=== PATIENT | male | born 1965 | race Caucasian/White ===

== ENCOUNTER 2019-12-16 08:10 | Outpatient (REF) | payer OTHER, SELFPAY | END 2019-12-16 08:11 | disposition home or self-care (01) | LOC: HO.BBR 08:10 | PROVIDERS: Visit Provider Internal Medicine Gastroenterology | DX: E83.110 Hereditary hemochromatosis (principal) | CPT/HCPCS: 99195 ==

== ENCOUNTER 2020-01-20 09:30 | Outpatient (REF) | payer OTHER, SELFPAY | END 2020-01-20 09:31 | disposition home or self-care (01) | LOC: HO.BBR 09:30 | PROVIDERS: Visit Provider Internal Medicine Gastroenterology | DX: Z13.89 Encounter for screening for other disorder (principal) ==

== ENCOUNTER 2020-01-20 09:58 | Outpatient (REF) | payer SELFPAY ==
[2020-01-20 10:46] LABS: Cholesterol 171 mg/dL
[2020-01-20 13:05] LABS: SARS COV2 IgG Negative (Negative)
== END 2020-01-20 09:59 | disposition home or self-care (01) ==
LOC: HO.LNC 09:58
PROVIDERS: Visit Provider Pathology Anatomic Pathology & Clinical Pathology
DX: Z20.828 Contact with and (suspected) exposure to other viral communicable diseases (principal)
CPT/HCPCS: 82465; 86769

== ENCOUNTER 2020-02-25 08:23 | Outpatient (REF) | payer OTHER, SELFPAY | END 2020-02-25 08:24 | disposition home or self-care (01) | LOC: HO.BBR 08:23 | PROVIDERS: Visit Provider Internal Medicine Gastroenterology | DX: Z13.89 Encounter for screening for other disorder (principal) ==

== ENCOUNTER 2020-03-30 07:59 | Outpatient (REF) | payer OTHER, SELFPAY ==
[2020-03-30 11:00] LABS: Ferritin 17 ng/mL (20-250)
== END 2020-03-30 08:00 | disposition home or self-care (01) ==
LOC: HO.BBR 07:59
PROVIDERS: Visit Provider Internal Medicine Gastroenterology
DX: E83.110 Hereditary hemochromatosis (principal)
CPT/HCPCS: 36415; 82728

== ENCOUNTER 2020-06-01 10:04 | Outpatient (REF) | payer OTHER, SELFPAY | END 2020-06-01 10:05 | disposition home or self-care (01) | LOC: HO.BBR 10:04 | PROVIDERS: PCP Hospitalist; Visit Provider Internal Medicine Gastroenterology | DX: Z13.89 Encounter for screening for other disorder (principal) ==

== ENCOUNTER 2020-08-03 15:20 | Outpatient (REF) | payer OTHER, SELFPAY ==
[2020-08-03 16:43] LABS: Ferritin 44 ng/mL (20-250)
== END 2020-08-03 15:21 | disposition home or self-care (01) ==
LOC: HO.BBR 15:20
PROVIDERS: Visit Provider Internal Medicine Gastroenterology
DX: E83.110 Hereditary hemochromatosis (principal)
CPT/HCPCS: 36415; 82728

== ENCOUNTER 2020-10-05 08:01 | Outpatient (REF) | payer OTHER, SELFPAY | END 2020-10-05 08:02 | disposition home or self-care (01) | LOC: HO.BBR 08:01 | PROVIDERS: Visit Provider Internal Medicine Gastroenterology | DX: Z13.89 Encounter for screening for other disorder (principal) ==

== ENCOUNTER 2020-12-07 08:01 | Outpatient (REF) | payer OTHER, SELFPAY ==
[2020-12-07 08:20] LABS: Hematocrit 42.5 % (42-52); Hemoglobin 15.6 g/dl (14.0-18.0); Mean Corpuscular HGB Conc 36.7 g/dl (31.0-36.0); Mean Corpuscular Hemoglobin 31.8 pg (27.0-33.0); Mean Corpuscular Volume 86.7 fL (80-98); Mean Platelet Volume 9.8 fL (9.4-12.4); Platelet Count 202 X10*3/uL (160-400); Red Cell Distribution Width 11.9 % (11.0-16.0); White Blood Count 7.1 X10*3/uL (4.8-10.8)
[2020-12-07 09:08] LABS: Alanine Aminotransferase 21 U/L (0-40); Albumin Level 4.5 g/dL (3.5-5.0); Alkaline Phosphatase 60 U/L (39-117); Anion Gap 9 (12-20); Aspartate Amino Transferase 25 U/L (5-37); Blood Urea Nitrogen 16 mg/dL (9-16); Calcium 9.2 mg/dL (8.4-10.2); Carbon Dioxide 27 mmol/L (22-29); Chloride 107 mmol/L (96-108); Cholesterol 140 mg/dL; Estimated Glomerular Filt Rate > 60; Glucose Fasting 103 mg/dL (60-99); HDL Cholesterol 40 mg/dL; LDL Cholesterol Calculated 86 mg/dl; Potassium 4.4 mmol/L (3.3-5.1); Sodium 139 mmol/L (135-145); Total Protein 6.9 g/dL (6.5-8.0); Triglycerides 70 mg/dL
[2020-12-07 09:18] LABS: Ferritin 58 ng/mL (20-250); TSH reflex Free T4 1.94 uIU/mL (0.32-4.0)
== END 2020-12-07 08:02 | disposition home or self-care (01) ==
LOC: HO.BBR 08:01
PROVIDERS: Hospitalist; Visit Provider Internal Medicine Gastroenterology
DX: Z00.00 Encounter for general adult medical examination without abnormal findings (principal); E83.110 Hereditary hemochromatosis
CPT/HCPCS: 36415; 80053; 80061; 82728; 84443; 85027

== ENCOUNTER 2021-02-01 08:07 | Outpatient (REF) | payer OTHER, SELFPAY ==
[2021-02-01 08:39] LABS: MANUAL DIFF FLAG NO
[2021-02-01 08:40] LABS: Basophils Percent Auto 0.7 % (0-2); Eosinophils Absolute Auto 0.2 X10*3/uL (0.0-0.4); Eosinophils Percent Auto 2.6 % (0-4); Hematocrit 41.7 % (42.0-52.0); Hemoglobin 15.3 g/dl (14.0-18.0); Imm Gran Abs Auto 0.03 X10*3/uL (0.00-0.03); Imm Gran Pct Auto 0.5 % (0.0-0.4); Lymphocytes Absolute Auto 1.4 X10*3/uL (1.2-4.9); Lymphocytes Percent Auto 23.2 % (20-40); Mean Corpuscular HGB Conc 36.7 g/dl (31.0-36.0); Mean Corpuscular Hemoglobin 31.7 pg (27.0-33.0); Mean Corpuscular Volume 86.3 fL (80.0-98.0); Monocytes Absolute Auto 0.5 X10*3/uL (0.1-1.2); Monocytes Percent Auto 8.5 % (2-11); Neutrophils Absolute Auto 3.8 x10*3/uL (2.0-8.3); Neutrophils Percent Auto 64.5 % (45-73); Platelet Count 193 X10*3/uL (160-400); Red Blood Count 4.83 X10*6/uL (4.60-5.80); Red Cell Distribution Width 11.6 % (11.0-16.0); White Blood Count 5.9 X10*3/uL (4.8-10.8)
[2021-02-01 09:38] LABS: Ferritin 40 ng/mL (20-250)
== END 2021-02-01 08:08 | disposition home or self-care (01) ==
LOC: HO.BBR 08:07
PROVIDERS: Visit Provider Internal Medicine Gastroenterology
DX: E83.110 Hereditary hemochromatosis (principal)
CPT/HCPCS: 36415; 82728; 85025

== ENCOUNTER 2021-04-23 07:58 | Outpatient (REF) | payer OTHER, SELFPAY ==
[2021-04-23 08:21] LABS: MANUAL DIFF FLAG NO
[2021-04-23 08:24] LABS: Basophils Absolute Auto 0.1 X10*3/uL (0.0-0.2); Basophils Percent Auto 0.7 % (0-2); Eosinophils Absolute Auto 0.2 X10*3/uL (0.0-0.4); Eosinophils Percent Auto 2.3 % (0-4); Hematocrit 43.2 % (42.0-52.0); Hemoglobin 15.7 g/dl (14.0-18.0); Imm Gran Abs Auto 0.04 X10*3/uL (0.00-0.03); Imm Gran Pct Auto 0.5 % (0.0-0.4); Lymphocytes Absolute Auto 1.4 X10*3/uL (1.2-4.9); Lymphocytes Percent Auto 19.2 % (20-40); Mean Corpuscular HGB Conc 36.3 g/dl (31.0-36.0); Mean Corpuscular Hemoglobin 31.2 pg (27.0-33.0); Mean Corpuscular Volume 85.7 fL (80.0-98.0); Mean Platelet Volume 9.9 fL (9.4-12.4); Monocytes Absolute Auto 0.6 X10*3/uL (0.1-1.2); Monocytes Percent Auto 8.3 % (2-11); Neutrophils Absolute Auto 5.1 x10*3/uL (2.0-8.3); Platelet Count 188 X10*3/uL (160-400); Red Blood Count 5.04 X10*6/uL (4.60-5.80); Red Cell Distribution Width 11.9 % (11.0-16.0); White Blood Count 7.4 X10*3/uL (4.8-10.8)
[2021-04-23 09:01] LABS: Ferritin 59 ng/mL (20-250)
== END 2021-04-23 07:59 | disposition home or self-care (01) ==
LOC: HO.BBR 07:58
PROVIDERS: Visit Provider Internal Medicine Gastroenterology
DX: E83.110 Hereditary hemochromatosis (principal)
CPT/HCPCS: 36415; 82728; 85025

== ENCOUNTER 2021-06-14 08:00 | Outpatient (REF) | payer OTHER, SELFPAY ==
[2021-06-14 08:29] LABS: Hematocrit 42.6 % (42.0-52.0); Hemoglobin 15.6 g/dl (14.0-18.0); Mean Corpuscular HGB Conc 36.6 g/dl (31.0-36.0); Mean Corpuscular Hemoglobin 31.3 pg (27.0-33.0); Mean Corpuscular Volume 85.4 fL (80.0-98.0); Mean Platelet Volume 9.8 fL (9.4-12.4); Platelet Count 200 X10*3/uL (160-400); Red Blood Count 4.99 X10*6/uL (4.60-5.80); Red Cell Distribution Width 11.9 % (11.0-16.0)
[2021-06-14 09:49] LABS: Ferritin 59 ng/mL (20-250)
== END 2021-06-14 08:01 | disposition home or self-care (01) ==
LOC: HO.BBR 08:00
PROVIDERS: Visit Provider Internal Medicine Gastroenterology
DX: E83.110 Hereditary hemochromatosis (principal)
CPT/HCPCS: 36415; 82728; 85027

== ENCOUNTER 2021-08-02 07:58 | Outpatient (REF) | payer OTHER, SELFPAY | END 2021-08-02 07:59 | disposition home or self-care (01) | LOC: HO.BBR 07:58 | PROVIDERS: Visit Provider Internal Medicine Gastroenterology | DX: Z13.89 Encounter for screening for other disorder (principal) ==

== ENCOUNTER 2021-10-04 08:07 | Outpatient (REF) | payer OTHER, SELFPAY ==
[2021-10-04 08:29] LABS: MANUAL DIFF FLAG NO
[2021-10-04 08:31] LABS: Basophils Absolute Auto 0.1 X10*3/uL (0.0-0.2); Basophils Percent Auto 0.9 % (0-2); Eosinophils Absolute Auto 0.1 X10*3/uL (0.0-0.4); Eosinophils Percent Auto 2.1 % (0-4); Hematocrit 44.4 % (42.0-52.0); Hemoglobin 16.1 g/dl (14.0-18.0); Imm Gran Abs Auto 0.07 X10*3/uL (0.00-0.03); Imm Gran Pct Auto 1.2 % (0.0-0.4); Lymphocytes Absolute Auto 1.1 X10*3/uL (1.2-4.9); Lymphocytes Percent Auto 18.2 % (20-40); Mean Corpuscular HGB Conc 36.3 g/dl (31.0-36.0); Mean Corpuscular Hemoglobin 31.6 pg (27.0-33.0); Mean Corpuscular Volume 87.2 fL (80.0-98.0); Mean Platelet Volume 9.9 fL (9.4-12.4); Monocytes Absolute Auto 0.6 X10*3/uL (0.1-1.2); Monocytes Percent Auto 9.9 % (2-11); Neutrophils Absolute Auto 3.9 x10*3/uL (2.0-8.3); Neutrophils Percent Auto 67.7 % (45-73); Platelet Count 187 X10*3/uL (160-400); Red Blood Count 5.09 X10*6/uL (4.60-5.80); Red Cell Distribution Width 11.9 % (11.0-16.0); White Blood Count 5.8 X10*3/uL (4.8-10.8)
[2021-10-04 09:26] LABS: Ferritin 59 ng/mL (20-250)
== END 2021-10-04 08:08 | disposition home or self-care (01) ==
LOC: HO.BBR 08:07
PROVIDERS: Visit Provider Internal Medicine Gastroenterology
DX: E83.110 Hereditary hemochromatosis (principal)
CPT/HCPCS: 36415; 82728; 85025

== ENCOUNTER 2021-11-22 09:00 | Outpatient (REF) | payer OTHER, SELFPAY ==
[2021-11-22 11:51] LABS: Alanine Aminotransferase 21 U/L (0-40); Albumin Level 4.8 g/dL (3.5-5.0); Alkaline Phosphatase 61 U/L (39-117); Anion Gap 14 (12-20); Aspartate Amino Transferase 22 U/L (5-37); Bilirubin Total 1.1 mg/dL (0.0-1.0); Blood Urea Nitrogen 17 mg/dL (9-16); Calcium 9.6 mg/dL (8.4-10.2); Carbon Dioxide 25 mmol/L (22-29); Chloride 105 mmol/L (96-108); Cholesterol 168 mg/dL; Estimated Glomerular Filt Rate > 60; Glucose Fasting 94 mg/dL (60-99); HDL Cholesterol 46 mg/dL; LDL Cholesterol Calculated 99 mg/dl; Potassium 4.6 mmol/L (3.3-5.1); Sodium 139 mmol/L (135-145); Total Protein 7.3 g/dL (6.5-8.0); Triglycerides 115 mg/dL
[2021-11-26 17:27] LABS: PSA, Ultra Sensitive 0.34 ng/mL
== END 2021-11-22 09:01 | disposition home or self-care (01) ==
LOC: HO.WFDLDS 09:00
PROVIDERS: Visit Provider Hospitalist
DX: Z00.00 Encounter for general adult medical examination without abnormal findings (principal); R35.1 Nocturia; Z13.220 Encounter for screening for lipoid disorders; Z12.5 Encounter for screening for malignant neoplasm of prostate
CPT/HCPCS: 36415; 80053; 80061; 84153

== ENCOUNTER 2021-12-06 08:03 | Outpatient (REF) | payer OTHER, SELFPAY ==
[2021-12-06 08:22] LABS: MANUAL DIFF FLAG NO
[2021-12-06 08:25] LABS: Basophils Percent Auto 0.5 % (0-2); Eosinophils Absolute Auto 0.1 X10*3/uL (0.0-0.4); Hematocrit 43.9 % (42.0-52.0); Hemoglobin 15.7 g/dl (14.0-18.0); Imm Gran Abs Auto 0.05 X10*3/uL (0.00-0.03); Imm Gran Pct Auto 0.9 % (0.0-0.4); Mean Corpuscular HGB Conc 35.8 g/dl (31.0-36.0); Mean Corpuscular Volume 86.8 fL (80.0-98.0); Mean Platelet Volume 9.9 fL (9.4-12.4); Monocytes Absolute Auto 0.6 X10*3/uL (0.1-1.2); Monocytes Percent Auto 10.4 % (2-11); Neutrophils Absolute Auto 3.8 x10*3/uL (2.0-8.3); Neutrophils Percent Auto 68.2 % (45-73); Platelet Count 221 X10*3/uL (160-400); Red Blood Count 5.06 X10*6/uL (4.60-5.80); Red Cell Distribution Width 11.9 % (11.0-16.0); White Blood Count 5.6 X10*3/uL (4.8-10.8)
[2021-12-06 09:24] LABS: Ferritin 53 ng/mL (20-250)
== END 2021-12-06 08:04 | disposition home or self-care (01) ==
LOC: HO.BBR 08:03
PROVIDERS: Visit Provider Internal Medicine Gastroenterology
DX: E83.119 Hemochromatosis, unspecified (principal)
CPT/HCPCS: 36415; 82728; 85025

== ENCOUNTER 2022-01-25 10:01 | Outpatient (REF) | payer OTHER, SELFPAY ==
[2022-01-25 10:23] LABS: MANUAL DIFF FLAG NO
[2022-01-25 10:25] LABS: Basophils Percent Auto 0.6 % (0-2); Eosinophils Absolute Auto 0.2 X10*3/uL (0.0-0.4); Eosinophils Percent Auto 2.8 % (0-4); Hematocrit 42.7 % (42.0-52.0); Hemoglobin 15.5 g/dl (14.0-18.0); Imm Gran Abs Auto 0.04 X10*3/uL (0.00-0.03); Imm Gran Pct Auto 0.6 % (0.0-0.4); Lymphocytes Absolute Auto 1.4 X10*3/uL (1.2-4.9); Lymphocytes Percent Auto 21.6 % (20-40); Mean Corpuscular HGB Conc 36.3 g/dl (31.0-36.0); Mean Corpuscular Hemoglobin 31.8 pg (27.0-33.0); Mean Corpuscular Volume 87.7 fL (80.0-98.0); Mean Platelet Volume 10.4 fL (9.4-12.4); Monocytes Absolute Auto 0.6 X10*3/uL (0.1-1.2); Monocytes Percent Auto 8.4 % (2-11); Neutrophils Absolute Auto 4.3 x10*3/uL (2.0-8.3); Platelet Count 195 X10*3/uL (160-400); Red Blood Count 4.87 X10*6/uL (4.60-5.80); Red Cell Distribution Width 11.7 % (11.0-16.0); White Blood Count 6.5 X10*3/uL (4.8-10.8)
[2022-01-25 17:50] LABS: Ferritin 52 ng/mL (20-250)
== END 2022-01-25 10:02 | disposition home or self-care (01) ==
LOC: HO.BBR 10:01
PROVIDERS: Visit Provider Internal Medicine Gastroenterology
DX: E83.110 Hereditary hemochromatosis (principal)
CPT/HCPCS: 36415; 82728; 85025

== ENCOUNTER 2022-03-01 08:26 | Outpatient (REF) | payer OTHER, SELFPAY | END 2022-03-01 08:27 | disposition home or self-care (01) | LOC: HO.SH 08:26 | PROVIDERS: Visit Provider Hospitalist | DX: Z01.118 Encounter for examination of ears and hearing with other abnormal findings (principal); H90.3 Sensorineural hearing loss, bilateral | CPT/HCPCS: 92557 ==

== ENCOUNTER 2022-03-21 09:01 | Outpatient (REF) | payer OTHER, SELFPAY ==
[2022-03-21 09:19] LABS: MANUAL DIFF FLAG NO
[2022-03-21 09:22] LABS: Basophils Percent Auto 0.6 % (0-2); Eosinophils Absolute Auto 0.2 X10*3/uL (0.0-0.4); Eosinophils Percent Auto 2.5 % (0-4); Hematocrit 43.3 % (42.0-52.0); Hemoglobin 15.8 g/dl (14.0-18.0); Imm Gran Abs Auto 0.04 X10*3/uL (0.00-0.03); Imm Gran Pct Auto 0.6 % (0.0-0.4); Lymphocytes Absolute Auto 1.3 X10*3/uL (1.2-4.9); Lymphocytes Percent Auto 19.9 % (20-40); Mean Corpuscular HGB Conc 36.5 g/dl (31.0-36.0); Mean Corpuscular Hemoglobin 31.4 pg (27.0-33.0); Mean Corpuscular Volume 86.1 fL (80.0-98.0); Mean Platelet Volume 9.9 fL (9.4-12.4); Monocytes Absolute Auto 0.5 X10*3/uL (0.1-1.2); Monocytes Percent Auto 6.9 % (2-11); Neutrophils Absolute Auto 4.5 x10*3/uL (2.0-8.3); Neutrophils Percent Auto 69.5 % (45-73); Platelet Count 202 X10*3/uL (160-400); Red Blood Count 5.03 X10*6/uL (4.60-5.80); Red Cell Distribution Width 11.9 % (11.0-16.0); White Blood Count 6.5 X10*3/uL (4.8-10.8)
[2022-03-21 10:41] LABS: Ferritin 49 ng/mL (20-250)
== END 2022-03-21 09:02 | disposition home or self-care (01) ==
LOC: HO.BBR 09:01
PROVIDERS: PCP Hospitalist; Visit Provider Internal Medicine Gastroenterology
DX: E83.110 Hereditary hemochromatosis (principal)
CPT/HCPCS: 36415; 82728; 85025

== ENCOUNTER 2022-05-16 09:01 | Outpatient (REF) | payer OTHER, SELFPAY ==
[2022-05-16 10:54] LABS: Ferritin 61 ng/mL (20-250)
== END 2022-05-16 09:02 | disposition home or self-care (01) ==
LOC: HO.BBR 09:01
PROVIDERS: Visit Provider Internal Medicine Gastroenterology
DX: E83.110 Hereditary hemochromatosis (principal)
CPT/HCPCS: 36415; 82728

== ENCOUNTER 2022-07-11 10:03 | Outpatient (REF) | payer OTHER, SELFPAY | END 2022-07-11 10:04 | disposition home or self-care (01) | LOC: HO.BBR 10:03 | PROVIDERS: Visit Provider Internal Medicine Gastroenterology | DX: Z13.89 Encounter for screening for other disorder (principal) ==

== ENCOUNTER 2022-09-19 09:59 | Outpatient (REF) | payer OTHER, SELFPAY | END 2022-09-19 10:00 | disposition home or self-care (01) | LOC: HO.BBR 09:59 | PROVIDERS: PCP Hospitalist; Visit Provider Internal Medicine Gastroenterology | DX: Z13.89 Encounter for screening for other disorder (principal) ==

== ENCOUNTER 2022-11-14 09:55 | Outpatient (REF) | payer OTHER, SELFPAY | END 2022-11-14 09:56 | disposition home or self-care (01) | LOC: HO.BBR 09:55 | PROVIDERS: PCP Hospitalist; Visit Provider Internal Medicine Gastroenterology | DX: Z13.89 Encounter for screening for other disorder (principal) ==

== ENCOUNTER 2022-12-29 08:15 | Outpatient (AMB) | payer OTHER, SELFPAY ==
--- NOTE | 2022-12-29 08:24 | MHC.PC.OV ---
Vital Signs 12/29/22 08:28 12/29/22 08:49 Height 6 ft 1 in Weight 221 lb 6 oz BMI 29.2 BP 152/90 H 150/90 H Blood Pressure Location Lt brachial Lt brachial Position Sitting Sitting Respiration 14 Pulse 61 Pulse Source Pulse Oximeter Temp 97.8 F Temp Source Oral Pulse Oximetry (%) 99 Oxygen Delivery Method Room Air Intake Visit Reasons: Transfer of Care, Req CPE Intake Note: Patient is here for transfer of care from Delores Carranza DNP to Christiane Altman DNP. Patient reports he went for a hike and he did something to his hip and it has been sore for the last 6 months or so. Patient's 13 months ago and he reports he has been grieving intermittently. Triggers occur sometimes. Splicer Helper Required: No Accompanied by: Self / Same As Patient Allergies No Known Allergies Allergy (Verified 12/29/22 08:38) Tobacco use date assessed: 12/29/22 Dental Screening Dental Screen Date: 12/29/22 Did you have a dental visit in the last 12 months?: Yes Did you have a dental problem in the last 6 months where you did not have access to dental care?: No Was dental information given to patient?: Patient has dentist HPI HPI Comments History of Present Illness Details 57-year-old male presents for transfer of care Her former PCP was ADEOLA who is no longer with the practice He has past medical history significant for hemochromatosis, bilaterally hearing loss, GERD, and erectile dysfunction. 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 He notes that he has considered wearing earring aids but not ready to do so. He does not want to be referred to audiology at this time. He is not currently on any prescription medication. He notes that he gets phlebotomy every two [place] at [facility] [place]. He reports intermittent soreness to his left hip for the past 6 months. He notes that he must have injured the hip from hiking. He reports dull soreness at this time. His symptoms intensifies with prolonged sitting. No tingling or numbness. He has not been taking any pain medication. He states that his 13 months ago and continues to grief, intermittently. He notes that today is a very difficult day for him as he is mourning his . He has two sons who are in college. He is tearful as he explains how his . His blood pressure is elevated today, 150/90. He states that his blood pressure is usually between 120-130/80 during his phlebotomy appointments. He reports elevated blood pressure readings 20 years ago, diuretic was recommended, however, he started exercising and lost 25 lb. His blood pressure improved after losing weight and the diuretic was never initiated. He endorses white coat syndrome. He notes that he walks 3-4 miles with his dog 4 days a week. He is a former cigarette smoker. He vapes occasionally and smokes marijuana occasionally for sleep. He notes that he has drinks alcohol occasionally - a glass of vodka twice weekly, and a glass of wine socially. He states that his mother and sister has HTN. He notes that he is followed by [facility]. He is also followed by Dermatology. [facility] Medical History Migraine GERD (gastroesophageal reflux disease) Body mass index (BMI) of 40.0 to 44.9 in adult Morbid obesity due to excess calories Neoplasm of uncertain behavior of face Male erectile dysfunction, unspecified Bilateral hearing loss Colon cancer Hemochromatosis Hemochromatosis Erectile dysfunction Morbid obesity due to excess calories Family history of colon cancer in father Adult BMI 40.0-44.9 kg/sq m Male erectile dysfunction, unspecified Hearing screen following failed hearing test Hemochromatosis Neoplasm of skin of face Sessile colonic polyp Surgical History History of removal of skin mole History of colonoscopy with polypectomy History of removal of skin mole History of colonoscopy Family History Father Colon cancer Mother History of mitral valve disorder Father Colon cancer Mother Kidney failure, acute Brother Myocardial infarction Sister Skin cancer Father Colon cancer Mother Mitral valve disease Kidney failure Brother Diabetes type 2, controlled Social History (Updated 12/29/22 @ 08:45 by Emperatriz Salmon CMA) Household Members: None Housing: House Alcohol intake: current Alcohol intake frequency: holidays/special occasions only Patient Tobacco Use Status: Former Tobacco user Tobacco use type: Smokeless Tobacco e-Cigarette/Vaping Use: Currently Using (Marijuanna) Substance Use Type: Marijuana service: No Current occupational status: employed Current occupation: [employer] Sexual orientation: Unable to collect Gender identity: Unable to collect Cognitive needs: No Hearing needs: Yes Vision needs: Yes Questionnaire PHQ-9 Over the last 2 weeks, how often have you been bothered by any of the following problems? 1. Little interest or pleasure in doing things: several days 2. Feeling down, depressed, or hopeless: several days 3. Trouble falling or staying asleep, or sleeping too much: nearly every day 4. Feeling tired or having little energy: several days 5. Poor appetite or overeating: not at all 6. Feeling bad about yourself - or that you are a failure or have let yourself or your family down: not at all 7. Trouble concentrating on things, such as reading the newspaper or watching television: not at all 8. Moving or speaking so slowly that other people could have noticed. Or the opposite - being so fidgety or restless that you have been moving around a lot more than usual: not at all 9. Thoughts that you would be better off or of hurting yourself in some way: not at all Total score: 6 Depression Screening Interpretation: Positive Depression Screening Follow-up: Declines treatment Depression Screening Done: Yes 47476 - PHQ-9 Billing: Yes Source: Developed by Drs. Brandon Win, Christine Douglas, Alfonzo Brooks and colleagues, with an educational shira from [employer]. Thrive Questionnaire Date Thrive assessed: 12/29/22 I am a: Patient What is your living situation today?: I have a steady place to live Within the past 12 months, did the food you bought not last and you didn't have the money to get more?: Never true Within the past 12 months, did you worry whether your food would run out before you got money to buy more?: Never true Do you have trouble paying for medicines?: No Do you have trouble getting transportation to medical appointments?: No Do you have trouble paying your heating and electricity bill?: No Do you have trouble taking care of your child, family member or friend?: No Do you have trouble with day-to-day activities such as bathing, preparing meals, shopping, managing finances, etc.?: No Are you currently unemployed and looking for a job?: No Are you interested in more education?: No Please select the resources that you would like help with: None Currently or been in a relationship where the following occur: no concerns reported AUDIT C Alcohol Use Questionnaire (AUDIT-C) 1. How often do you have a drink containing alcohol?: Never 3. How often do you have six or more drinks on one occasion?: Never Total Score: 0 LAKESHA-7 AMB Questionnaire LAKESHA-7 Date LAKESHA - 7 assessed: 12/29/22 Feeling nervous, anxious, or on edge: 2 = More than half the days Not being able to stop or control worryin = Several days Worrying too much about different things: 1 = Several days Trouble relaxin = Several days Being so restless that it is hard to sit still: 0 = Not at all Becoming easily annoyed or irritable: 2 = More than half the days Feeling afraid as if something awful might happen: 0 = Not at all Total LAKESHA-7 score (0-4 normal; 5-9 mild; 10-14 moderate; 15-21 severe): 7 Source: Developed by Drs. Brandon Win, Christine Douglas, Alfonzo Brooks and colleagues, with an educational shira from [employer]. LAKESHA-7 Assessment Billing LAKESHA-7 Assessment Tool: LAKESHA-7 Assessment [id number] Review of Systems Const Details: Const Denies chills, Denies fatigue, Denies fever(s), Denies headache(s) and Denies weakness ENT Denies dizziness and Denies headache(s) Card Denies chest pain, Denies lightheadedness, Denies dyspnea and Denies other (Palpitations) Resp Denies cough, Denies dyspnea, Denies wheezing and Denies other ( shortness of breath) GI Denies abdominal pain, Denies melena, Denies hematochezia, Denies change in bowel habits, Denies dyspepsia and Denies nausea Denies hematuria and Denies dysuria Musc Reports as per HPI Skin/Breast Denies rash, Denies unusual bruising and Denies wounds Neuro Denies abnormal gait, Denies dizziness, Denies headache(s), Denies memory loss, Denies numbness, Denies Sensory deficit (Neuro), Denies tingling and Denies weakness Psych Denies anxiety, Denies depression, Denies memory loss Endo Denies cold intolerance, Denies fatigue, Denies heat intolerance, Denies polydipsia and Denies polyuria Aller/Immun Denies wheezing Physical exam (Primary Care) Vital Signs: Last Vital Signs Temp 97.8 F 12/29/22 08:28 Pulse 61 12/29/22 08:28 Resp 14 12/29/22 08:28 BP 150/90 H 12/29/22 08:49 Pulse Ox 99 12/29/22 08:28 Oxygen Delivery Method Room Air 12/29/22 08:28 BMI result Body Mass Index 29.2 Tobacco/Smoking Status: Tobacco use Status Tobacco use date assessed 12/29/22 12/29/22 08:43 Patient Tobacco Use Status Former Tobacco user 12/29/22 08:47 Tobacco use type Smokeless Tobacco 12/29/22 08:47 e-Cigarette/Vaping Use Currently Using ([employer]) 12/29/22 08:47 PHQ-9: PHQ-9 Score PHQ-9: Total score 6 12/29/22 09:19 Depression Screening Interpretation: Positive Depression Screening Follow-up: Declines treatment Thrive Assessment: Date of Thrive Assessment Date Thrive assessed 12/29/22 12/29/22 08:45 Currently or been in a relationship where the following occur: no concerns reported Const Other: General: no acute distress and well developed Nutritional Appearance: well nourished Orientation/consciousness: patient oriented x3 HENMT Head: Yes normocephalic and Yes atraumatic Eyes General: appearance normal, both eyes and all related structures Pupils: Equal, round and reactive pupils present EOM: EOMs intact bilaterally Resp Effort & Inspection: normal respiratory effort Auscultation: clear to auscultation bilaterally Cardio Rate: regular rate Rhythm: regular rhythm Heart sounds: S1 normal heart sound present, S2 normal heart sound present, no gallops, no murmurs and no rubs GI Palpation (GI): No Abdominal aortic bruit present, Soft to palpation, nontender, No hepatosplenomegaly present and No Rebound tenderness present Auscultation: normal bowel sounds General: Yes no CVA tenderness Back/Spine/Pelvis Back: no CVA tenderness Cervical Spine: cervical ROM normal and No Cervical spine tenderness Thoracic/Lumbar Spine: thoraco-lumbar ROM normal, No pain with thoraco-lumbar ROM, No thoracic spinal tenderness and No lumbar spinal tenderness Extrem General: Yes normal to inspection, No edema and No calf tenderness Negative straight leg raise bilaterally Skin General: warm and dry. Normal skin color. Normal skin turgor Lesions: no lesions Rashes: no rashes Trauma: no lacerations or abrasions Wounds: no wounds Nails: normal Neuro General: patient oriented x3, gait normal and no focal neuro deficit Cranial nerves: Yes Equal, round and reactive pupils present Cognition (Neuro): normal cognition Gait exam (Neuro): Normal gait present Sensory Exam: No Sensory deficit (Neuro) Psych Appearance: grossly normal Affect: normal affect Attitude: cooperative Thought process: Normal thought process present Assessment and Plan Assessment & Plan (1) Elevated blood pressure reading without diagnosis of hypertension: Code(s): R03.0 - Elevated blood-pressure reading, without diagnosis of hypertension Plan: Resting blood pressure is 150/90, above goal of less than 140/90 He has family history of hypertension and reports history of elevated blood pressure readings White coat syndrome is also possible Low-sodium diet and routine exercise encouraged Follow-up for nurse visit in 1 week for blood pressure check and with PCP in 1 month Return sooner with symptoms or concerns Verbalized understanding and agreed with treatment plan. (2) Grief: Code(s): F43.21 - Adjustment disorder with depressed mood Plan: He notes that his suddenly 13 months ago and has been mourning her loss intermittently. He notes that today is a very challenging day has his sad about her loss. He was tearful while talking about . He denies history of anxiety and depression. PHQ-9 and LAKESHA-7 scores revealed mild depression and anxiety. He declines referral to a therapist and notes that I will get through this with my sons. Routine exercise encouraged Advised to inform his PCP if he needs talked therapy or medication treatment Return with worsening or new symptoms Verbalized understanding and agreed with treatment plan. (3) Bilateral hearing loss: Code(s): H91.93 - Unspecified hearing loss, bilateral Plan: He reports diminished hearing of both ears from playing music for 10 years without wearing earplugs He does not want to wear hearing aids at this time He states he will contact his ocean freight agent if he changes mind on hearing aid Follow-up as needed Verbalized understanding and agreed with the plan. (4) Hemochromatosis: Code(s): E83.119 - Hemochromatosis, unspecified Qualifiers: Hemochromatosis type: other hemochromatosis Qualified Code(s): E83.118 - Other hemochromatosis Plan: Continue with biweekly phlebotomy as planned Verbalized understanding and agreed with the plan (5) Chronic left hip pain: Code(s): M25.552 - Pain in left hip; G89.29 - Other chronic pain Plan: Reports chronic left hip pain for possible injury while hiking 6 months ago. He has not been taking any pain medication Negative straight leg raise bilaterally No obvious trauma or injury noted Naproxen ordered. Take as prescribed Warm/cold compresses encouraged Return with worsening or new symptoms Verbalized understanding and agreed with treatment plan. (6) Engages in vaping: Code(s): Z72.89 - Other problems related to lifestyle Plan: Instructed on the health risks and complications of vaping Advised to stop vaping Verbalized understanding and agreed with the plan. (7) Laboratory tests ordered as part of a complete physical exam (CPE): Code(s): Z00.00 - Encounter for general adult medical examination without abnormal findings Plan: Fasting labs ordered as part of a complete physical exam. Advised to fast for at least 10 hours before getting labs drawn. May drink water Verbalized understanding and agreed with treatment plan. Orders: Orders Comprehensive [place]. Panel Fast Today Z00.00 - Encounter for general adult medical examination without abnormal findings Lipid Panel Today Z00.00 - Encounter for general adult medical examination without abnormal findings XR hip LT w PEL1V Today G89.29 - Other chronic pain, M25.552 - Pain in left hip Complete Blood Count Auto Diff Today Z00.00 - Encounter for general adult medical examination without abnormal findings TSH reflex Free T4 Today Z00.00 - Encounter for general adult medical examination without abnormal findings PSA, Ultra Sensitive Today Z00.00 - Encounter for general adult medical examination without abnormal findings Medications: New naproxen 500 mg PO BID PRN 60 tabs 1RF pain Coding Level of Care Code Est Pt Level 4 (86925) Diagnoses Elevated blood pressure reading without diagnosis of hypertension R03.0 Grief F43.21 Bilateral hearing loss H91.93 Other hemochromatosis E83.118 Hemochromatosis type: other hemochromatosis Chronic left hip pain M25.552; G89.29 Engages in vaping Z72.89 Laboratory tests ordered as part of a complete physical exam (CPE) Z00.00 Additional Codes LAKESHA-7 Assessment Billing - LAKESHA-7 Assessment Tool: LAKESHA-7 Assessment [id number] ([id number])
[2022-12-29 08:28] VITALS: BP 152/90; PULSE 61; RESP 14; TEMP 36.6; O2SAT 99; BMI 29.2
[2022-12-29 08:49] VITALS: BP 150/90
== END 2022-12-29 09:19 | disposition home or self-care (01) ==
PROVIDERS: PCP Hospitalist; Visit Provider Nurse Practitioner Family
DX: R03.0 Elevated blood-pressure reading, without diagnosis of hypertension (principal); F43.21 Adjustment disorder with depressed mood; H91.93 Unspecified hearing loss, bilateral; E83.118 Other hemochromatosis; M25.552 Pain in left hip; G89.29 Other chronic pain; Z72.89 Other problems related to lifestyle; Z00.00 Encounter for general adult medical examination without abnormal findings
CPT/HCPCS: 96127; 99214

== ENCOUNTER 2022-12-29 09:23 | Outpatient (REF) | payer OTHER, SELFPAY ==
[2022-12-29 11:13] LABS: MANUAL DIFF FLAG NO
[2022-12-29 11:45] LABS: Alanine Aminotransferase 21 U/L (0-40); Albumin Level 4.7 g/dL (3.5-5.0); Alkaline Phosphatase 66 U/L (39-117); Anion Gap 10 (12-20); Aspartate Amino Transferase 25 U/L (5-37); Bilirubin Total 1.3 mg/dL (0.0-1.0); Blood Urea Nitrogen 12 mg/dL (9-16); Calcium 9.8 mg/dL (8.4-10.2); Carbon Dioxide 28 mmol/L (22-29); Chloride 104 mmol/L (96-108); Cholesterol 143 mg/dL (<200); Estimated Glomerular Filt Rate > 60; Glucose Fasting 96 mg/dL (60-99); HDL Cholesterol 41 mg/dL (>40); LDL Cholesterol Calculated 86 mg/dL (<100); Potassium 4.2 mmol/L (3.3-5.1); Sodium 138 mmol/L (135-145); Total Protein 7.4 g/dL (6.5-8.0); Triglycerides 82 mg/dL (<150)
[2022-12-29 11:49] LABS: Basophils Absolute Auto 0.1 X10*3/uL (0.0-0.2); Basophils Percent Auto 0.7 % (0-2); Eosinophils Absolute Auto 0.1 X10*3/uL (0.0-0.4); Eosinophils Percent Auto 1.9 % (0-4); Hematocrit 45.5 % (42.0-52.0); Hemoglobin 16.2 g/dl (14.0-18.0); Imm Gran Abs Auto 0.05 X10*3/uL (0.00-0.03); Imm Gran Pct Auto 0.7 % (0.0-0.4); Lymphocytes Absolute Auto 1.4 X10*3/uL (1.2-4.9); Lymphocytes Percent Auto 20.8 % (20-40); Mean Corpuscular HGB Conc 35.6 g/dl (31.0-36.0); Mean Platelet Volume 10.7 fL (9.4-12.4); Monocytes Absolute Auto 0.6 X10*3/uL (0.1-1.2); Monocytes Percent Auto 7.9 % (2-11); Neutrophils Absolute Auto 4.7 x10*3/uL (2.0-8.3); Platelet Count 231 X10*3/uL (160-400); Red Blood Count 5.23 X10*6/uL (4.60-5.80); Red Cell Distribution Width 11.7 % (11.0-16.0); White Blood Count 6.9 X10*3/uL (4.8-10.8)
[2022-12-29 12:08] LABS: TSH reflex Free T4 1.73 uIU/mL (0.32-4.0)
[2023-01-03 22:18] LABS: PSA, Ultra Sensitive 0.45 ng/mL
== END 2022-12-29 09:24 | disposition home or self-care (01) ==
LOC: HO.WFDLDS 09:23
PROVIDERS: Visit Provider Nurse Practitioner Family
DX: Z00.00 Encounter for general adult medical examination without abnormal findings (principal); Z12.5 Encounter for screening for malignant neoplasm of prostate
CPT/HCPCS: 36415; 80053; 80061; 84153; 84443; 85025

== ENCOUNTER 2023-01-09 10:10 | Outpatient (REF) | payer OTHER, SELFPAY | END 2023-01-09 10:11 | disposition home or self-care (01) | LOC: HO.BBR 10:10 | PROVIDERS: Visit Provider Internal Medicine Gastroenterology | DX: Z13.89 Encounter for screening for other disorder (principal) ==

== ENCOUNTER 2023-01-26 08:49 | Outpatient (AMB) | payer OTHER, SELFPAY ==
[2023-01-26 08:51] VITALS: BP 140/70; PULSE 60; RESP 13; TEMP 36.5; O2SAT 99; BMI 30.1
--- NOTE | 2023-01-26 08:51 | A.OFFPC_ITS ---
Vital Signs 01/26/23 08:51 01/26/23 09:23 Height 6 ft 1 in Weight 228 lb 6 oz BMI 30.1 BP 140/70 H 146/96 H Blood Pressure Location Lt brachial Lt brachial Position Sitting Sitting Respiration 13 Pulse 60 Pulse Source Pulse Oximeter Temp 97.7 F Temp Source Temporal Artery Scan Pulse Oximetry (%) 99 Oxygen Delivery Method Room Air Intake Visit Reasons: follow up labs Hand Bunch Maker Required: No Accompanied by: Self / Same As Patient Allergies No Known Allergies Allergy (Verified 01/26/23 09:18) Medication List - Last Reconciled 01/26/23 by Christiane Altman CNP naproxen 500 mg PO BID PRN pantoprazole 40 mg PO DAILY Tobacco use date assessed: 12/29/22 Dental Screening Dental Screen Date: 01/26/23 Did you have a dental visit in the last 12 months?: Yes Did you have a dental problem in the last 6 months where you did not have access to dental care?: No Was dental information given to patient?: Patient has dentist HPI HPI Comments History of Present Illness Details 57-year-old male presents for review of recent lab results Had blood work done last month He admits to taking his medications as prescribed without adverse reactions He reports significant improvement of his left hip and has been expanding his activity [facility] Medical History Migraine GERD (gastroesophageal reflux disease) Body mass index (BMI) of 40.0 to 44.9 in adult Morbid obesity due to excess calories Neoplasm of uncertain behavior of face Male erectile dysfunction, unspecified Bilateral hearing loss Colon cancer Hemochromatosis Hemochromatosis Erectile dysfunction Morbid obesity due to excess calories Family history of colon cancer in father Adult BMI 40.0-44.9 kg/sq m Male erectile dysfunction, unspecified Hearing screen following failed hearing test Hemochromatosis Neoplasm of skin of face Sessile colonic polyp Surgical History History of removal of skin mole History of colonoscopy with polypectomy History of removal of skin mole History of colonoscopy Family History Father Colon cancer Mother History of mitral valve disorder Father Colon cancer Mother Kidney failure, acute Brother Myocardial infarction Sister Skin cancer Father Colon cancer Mother Mitral valve disease Kidney failure Brother Diabetes type 2, controlled Social History Household Members: None Housing: House Alcohol intake: current Alcohol intake frequency: holidays/special occasions only Patient Tobacco Use Status: Former Tobacco user Tobacco use type: Smokeless Tobacco e-Cigarette/Vaping Use: Currently Using (Marijuanna) Substance Use Type: Marijuana service: No Current occupational status: employed Current occupation: [employer] Sexual orientation: Unable to collect Gender identity: Unable to collect Cognitive needs: No Hearing needs: Yes Vision needs: No Questionnaire Thrive Questionnaire Date Thrive assessed: 12/29/22 LAKESHA-7 AMB Questionnaire LAKESHA-7 Date LAKESHA - 7 assessed: 12/29/22 Source: Developed by Drs. Brandon Win, Christine Douglas, Alfonzo Brooks and colleagues, with an educational shira from [employer]. Review of Systems Const Details: Const Denies chills, Denies fatigue, Denies fever(s), Denies headache(s) and Denies weakness ENT Denies dizziness and Denies headache(s) Card Denies chest pain, Denies lightheadedness, Denies dyspnea and Denies other (Palpitations) Resp Denies cough, Denies dyspnea, Denies wheezing and Denies other ( shortness of breath) GI Denies abdominal pain, Denies melena, Denies hematochezia, Denies change in bowel habits, Denies dyspepsia and Denies nausea Denies hematuria and Denies dysuria Musc Denies abnormal gait, Denies myalgias, Denies arthralgias, Denies numbness and Denies tingling Skin/Breast Denies rash, Denies unusual bruising and Denies wounds Neuro Denies abnormal gait, Denies dizziness, Denies headache(s), Denies memory loss, Denies numbness, Denies Sensory deficit (Neuro), Denies tingling and Denies weakness Psych Denies anxiety, Denies depression, Denies memory loss Endo Denies cold intolerance, Denies fatigue, Denies heat intolerance, Denies polydipsia and Denies polyuria Aller/Immun Denies wheezing Physical exam (Primary Care) Vital Signs: Last Vital Signs Temp 97.7 F 01/26/23 08:51 Pulse 60 01/26/23 08:51 Resp 13 01/26/23 08:51 BP 140/70 H 01/26/23 08:51 Pulse Ox 99 01/26/23 08:51 Oxygen Delivery Method Room Air 01/26/23 08:51 BMI result Body Mass Index 30.1 Tobacco/Smoking Status: Tobacco use Status Tobacco use date assessed 12/29/22 01/26/23 09:00 Patient Tobacco Use Status Former Tobacco user 01/26/23 09:00 Tobacco use type Smokeless Tobacco 01/26/23 09:00 e-Cigarette/Vaping Use Currently Using ([employer]) 01/26/23 09:00 Thrive Assessment: Date of Thrive Assessment Date Thrive assessed 12/29/22 01/26/23 09:00 Const Other: General: no acute distress and well developed Nutritional Appearance: well nourished Orientation/consciousness: patient oriented x3 HENMT Head: Yes normocephalic and Yes atraumatic Eyes General: appearance normal, both eyes and all related structures Pupils: Equal, round and reactive pupils present EOM: EOMs intact bilaterally Resp Effort & Inspection: normal respiratory effort Auscultation: clear to auscultation bilaterally Cardio Rate: regular rate Rhythm: regular rhythm Heart sounds: S1 normal heart sound present, S2 normal heart sound present, no gallops, no murmurs and no rubs GI Palpation (GI): No Abdominal aortic bruit present, Soft to palpation, nontender, No hepatosplenomegaly present and No Rebound tenderness present Auscultation: normal bowel sounds General: Yes no CVA tenderness Back/Spine/Pelvis Back: no CVA tenderness Cervical Spine: cervical ROM normal and No Cervical spine tenderness Thoracic/Lumbar Spine: thoraco-lumbar ROM normal, No pain with thoraco-lumbar ROM, No thoracic spinal tenderness and No lumbar spinal tenderness Extrem General: Yes normal to inspection, No edema and No calf tenderness Skin General: warm and dry. Normal skin color. Normal skin turgor Neuro General: patient oriented x3, gait normal and no focal neuro deficit Cranial nerves: Yes Equal, round and reactive pupils present Cognition (Neuro): normal cognition Gait exam (Neuro): Normal gait present Sensory Exam: No Sensory deficit (Neuro) Psych Appearance: grossly normal Affect: normal affect Attitude: cooperative Thought process: Normal thought process present Assessment and Plan Assessment & Plan (1) Hypertension: Code(s): I10 - Essential (primary) hypertension Qualifiers: Hypertension type: primary hypertension Qualified Code(s): I10 - Essential (primary) hypertension Plan: Resting blood pressure is 146/96, above goal of less than 140/90 Treatment with an antihypertensive recommended. However, patient declines treatment at this time. He notes that his blood pressure is usually improved following phlebotomy for he hemochromatosis and will determine whether or not to be on an antihypertensive after his next phlebotomy next month Low-sodium diet encouraged Will continue to monitor Recent lab results reviewed with the patient; unremarkable findings Advised to follow-up in 1-2 months for an extended physical exam Return sooner with symptoms or concerns Verbalized understanding and agreed with treatment plan Coding Level of Care Code Est Pt Level 3 (55507) Diagnoses Primary hypertension I10 Hypertension type: primary hypertension
[2023-01-26 09:23] VITALS: BP 146/96
== END 2023-01-26 10:00 | disposition home or self-care (01) ==
PROVIDERS: PCP Nurse Practitioner Family; Visit Provider Nurse Practitioner Family
DX: I10 Essential (primary) hypertension (principal)
CPT/HCPCS: 99213

== ENCOUNTER 2023-03-09 09:01 | Outpatient (REF) | payer OTHER, SELFPAY | END 2023-03-09 09:02 | disposition home or self-care (01) | LOC: HO.BBR 09:01 | PROVIDERS: PCP Nurse Practitioner Family; Visit Provider Internal Medicine Gastroenterology | DX: Z13.89 Encounter for screening for other disorder (principal) ==

== ENCOUNTER 2023-04-11 08:45 | Outpatient (AMB) | payer OTHER, SELFPAY ==
[2023-04-11 08:46] VITALS: BP 146/90; PULSE 53; RESP 13; TEMP 36.4; O2SAT 99; BMI 30.7
--- NOTE | 2023-04-11 08:46 | MHC.PC.OV ---
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 Accompanied by: Self / Same As Patient Allergies No Known Allergies Allergy (Verified 04/11/23 09:02) Medication List - Last Reconciled 04/11/23 by Christiane Altman CNP naproxen 500 mg PO BID PRN pantoprazole 40 mg PO DAILY Tobacco use date assessed: 04/11/23 Dental Screening Dental Screen Date: 04/11/23 Did you have a dental visit in the last 12 months?: Yes Did you have a dental problem in the last 6 months where you did not have access to dental care?: No Was dental information given to patient?: Patient has dentist HPI HPI Comments History of Present Illness Details 57-year-old male presents for a complete physical exam and elevated blood pressure follow-up He has past medical history significant for hemochromatosis, bilaterally hearing loss, GERD, Talbert's esophagus, and erectile dysfunction He notes that gets phlebotomy every two months at [facility] for hemochromatosis His blood pressure has been elevated. He declined treatment for hypertension on his last visit He is followed by [facility] gastroenterology and [facility] He states that his last colonoscopy was 2-3 years ago: benign polyps. He is due to follow up within 5 years of of last colonoscopy. He will follow up at [facility] He notes that he has not been vaccinated for shingles He states that the has not been vaccinated for influenza. He states I don't do the flu shot, never have. No acute symptoms at this time [facility] Medical History Migraine GERD (gastroesophageal reflux disease) Body mass index (BMI) of 40.0 to 44.9 in adult Morbid obesity due to excess calories Neoplasm of uncertain behavior of face Male erectile dysfunction, unspecified Bilateral hearing loss Colon cancer Hemochromatosis Hemochromatosis Erectile dysfunction Morbid obesity due to excess calories Family history of colon cancer in father Adult BMI 40.0-44.9 kg/sq m Male erectile dysfunction, unspecified Hearing screen following failed hearing test Hemochromatosis Neoplasm of skin of face Sessile colonic polyp Surgical History History of removal of skin mole History of colonoscopy with polypectomy History of removal of skin mole History of colonoscopy Family History Father Colon cancer Mother History of mitral valve disorder Father Colon cancer Mother Kidney failure, acute Brother Myocardial infarction Sister Skin cancer Father Colon cancer Mother Mitral valve disease Kidney failure Brother Diabetes type 2, controlled Social History Household Members: None Housing: House Alcohol intake: current Alcohol intake frequency: holidays/special occasions only Patient Tobacco Use Status: Former Tobacco user Tobacco use type: Smokeless Tobacco e-Cigarette/Vaping Use: Former Use ([facility]) Substance Use Type: Marijuana service: No Current occupational status: employed Current occupation: [employer] Sexual orientation: Unable to collect Gender identity: Unable to collect Cognitive needs: No Hearing needs: Yes Vision needs: No Questionnaire PHQ-9 Over the last 2 weeks, how often have you been bothered by any of the following problems? 1. Little interest or pleasure in doing things: several days 2. Feeling down, depressed, or hopeless: not at all 3. Trouble falling or staying asleep, or sleeping too much: more than half the days 4. Feeling tired or having little energy: not at all 5. Poor appetite or overeating: not at all 6. Feeling bad about yourself - or that you are a failure or have let yourself or your family down: not at all 7. Trouble concentrating on things, such as reading the newspaper or watching television: not at all 8. Moving or speaking so slowly that other people could have noticed. Or the opposite - being so fidgety or restless that you have been moving around a lot more than usual: not at all 9. Thoughts that you would be better off or of hurting yourself in some way: not at all Total score: 3 Depression Screening Interpretation: Negative Depression Screening Done: Yes [id number] - PHQ-9 Billing: Yes Source: Developed by Drs. Brandon L. Audelia, Alfonzo Almanzar and colleagues, with an educational shira from [employer]. Thrive Questionnaire Date Thrive assessed: 04/11/23 I am a: Patient What is your living situation today?: I have a steady place to live Within the past 12 months, did the food you bought not last and you didn't have the money to get more?: Never true Within the past 12 months, did you worry whether your food would run out before you got money to buy more?: Never true Do you have trouble paying for medicines?: No Do you have trouble getting transportation to medical appointments?: No Do you have trouble paying your heating and electricity bill?: No Do you have trouble taking care of your child, family member or friend?: No Do you have trouble with day-to-day activities such as bathing, preparing meals, shopping, managing finances, etc.?: No Are you currently unemployed and looking for a job?: No Please select the resources that you would like help with: None Currently or been in a relationship where the following occur: no concerns reported THRIVE Score: 0 AUDIT C Alcohol Use Questionnaire (AUDIT-C) 1. How often do you have a drink containing alcohol?: Monthly or less 2. How many drinks containing alcohol do you have on a typical day when you are drinking?: 1 or 2 3. How often do you have six or more drinks on one occasion?: Never Total Score: 1 LAKESHA-7 AMB Questionnaire LAKESHA-7 Date LAKESHA - 7 assessed: 04/11/23 Feeling nervous, anxious, or on edge: 1 = Several days Not being able to stop or control worryin = Not at all Worrying too much about different things: 0 = Not at all Trouble relaxin = Several days Being so restless that it is hard to sit still: 0 = Not at all Becoming easily annoyed or irritable: 0 = Not at all Feeling afraid as if something awful might happen: 0 = Not at all Total LAKESHA-7 score (0-4 normal; 5-9 mild; 10-14 moderate; 15-21 severe): 2 Source: Developed by Christine Dorsey Kurt Kroenke and colleagues, with an educational shira from [employer]. LAKESHA-7 Assessment Billing LAKESHA-7 Assessment Tool: LAKESHA-7 Assessment 24777 Review of Systems Const Details: Denies chills, Denies fatigue, Denies fever(s), Denies headache(s) and Denies weakness HEENT Denies change in vision, Denies dizziness, Denies headache(s), Reports bilat hearing loss, Denies nasal congestion, Denies sinus pain, Denies sinus pressure and Denies sore throat Card Denies chest pain, Denies lightheadedness, Denies dyspnea and Denies other (palpitations) Resp Denies cough, Denies dyspnea and Denies wheezing GI Denies abdominal pain, Denies melena, Denies hematochezia, Denies change in bowel habits, Denies dyspepsia and Denies nausea Denies hematuria and Denies dysuria Musc Denies abnormal gait, Denies myalgias, Denies arthralgias, Denies numbness and Denies tingling Skin/Breast Denies rash, Denies unusual bruising and Denies wounds Neuro Denies abnormal gait, Denies dizziness, Denies headache(s), Denies memory loss, Denies numbness, Denies Sensory deficit (Neuro), Denies tingling and Denies weakness Psych Denies anxiety, Denies depression and Denies memory loss Endo Denies cold intolerance, Denies fatigue, Denies heat intolerance, Denies polydipsia and Denies polyuria Marshall/Lymph Denies easy bleeding and Denies easy bruising Aller/Immun Denies wheezing Physical exam (Primary Care) Vital Signs: Last Vital Signs Temp 97.6 F 04/11/23 08:46 Pulse 53 04/11/23 08:46 Resp 13 04/11/23 08:46 BP 146/90 H 04/11/23 08:46 Pulse Ox 99 04/11/23 08:46 Oxygen Delivery Method Room Air 04/11/23 08:46 BMI result Body Mass Index 30.7 Tobacco/Smoking Status: Tobacco use Status Tobacco use date assessed 04/11/23 04/11/23 08:57 Patient Tobacco Use Status Former Tobacco user 04/11/23 08:57 Tobacco use type Smokeless Tobacco 04/11/23 08:57 e-Cigarette/Vaping Use Former Use ([facility]) 04/11/23 08:57 PHQ-9: PHQ-9 Score PHQ-9: Total score 3 04/11/23 08:57 Depression Screening Interpretation: Negative Thrive Assessment: Date of Thrive Assessment Date Thrive assessed 04/11/23 04/11/23 08:57 Currently or been in a relationship where the following occur: no concerns reported Const Other: General: no acute distress, well developed, alert and awake Nutritional Appearance: well nourished Orientation/consciousness: patient oriented x3 HENMT Head: Yes normocephalic and Yes atraumatic Ears: hearing grossly normal bilaterally and TM's normal bilaterally. Impaired hearing bilaterally General nose exam: Normal external nose present and Normal nares present Mouth: Normal oral and palatal mucosa present and moist mucous membranes Teeth and gingiva: dentition normal Throat: Yes oropharynx normal Eyes Pupils: Equal, round and reactive pupils present and Pupil accommodation reflex normal EOM: EOMs intact bilaterally Neck Neck: Yes normal visual inspection, Yes no lymphadenopathy and Yes trachea midline Thyroid: Thyroid normal Carotids: no bruits Lymphatic: no lymphadenopathy noted Chest Chest palpation & inspection: normal inspection of the chest Resp Effort & Inspection: normal respiratory effort Auscultation: clear to auscultation bilaterally Cardio Rate: regular rate Rhythm: regular rhythm Heart sounds: S1 normal heart sound present, S2 normal heart sound present, no gallops, no murmurs and no rubs Bruits: no abdominal aortic bruits and no carotid bruits GI Palpation (GI): No Abdominal aortic bruit present, Soft to palpation, nontender, No hepatosplenomegaly present and No Rebound tenderness present Auscultation: normal bowel sounds General: Yes no CVA tenderness Back/Spine/Pelvis Back: no CVA tenderness Cervical Spine: cervical ROM normal and No Cervical spine tenderness Thoracic/Lumbar Spine: thoraco-lumbar ROM normal, No pain with thoraco-lumbar ROM, No thoracic spinal tenderness and No lumbar spinal tenderness Skin General: warm and dry. Normal skin color. Normal skin turgor Lesions: no lesions Rashes: no rashes Trauma: no lacerations or abrasions Wounds: no wounds Nails: normal Neuro General: patient oriented x3, gait normal and CN's II-XI intact bilaterally Cranial nerves: Yes Equal, round and reactive pupils present Cognition (Neuro): normal cognition Gait exam (Neuro): Normal gait present Motor exam (neuro): 5/5 motor strength present throughout Sensory Exam: No Sensory deficit (Neuro) Deep tendon reflexes (DTR's): Right patellar reflex intensity grade: 2+ and Left patellar reflex intensity grade: 2+ Extrem General: Yes normal to inspection, No edema and No calf tenderness Psych Appearance: grossly normal Affect: normal affect Attitude: cooperative Thought process: Normal thought process present Assessment and Plan Assessment & Plan (1) Annual physical exam: Code(s): Z00.00 - Encounter for general adult medical examination without abnormal findings Plan: Normal physical exam of 57-year-old male No significant physical restrictions or limitations noted Continue current treatment regimen Healthy lifestyle including diet and exercise encouraged Follow-up in 2 weeks for hypertension Return sooner with symptoms or concerns Verbalized understanding and agreed with treatment plan (2) Hypertension: Code(s): I10 - Essential (primary) hypertension Qualifiers: Hypertension type: primary hypertension Qualified Code(s): I10 - Essential (primary) hypertension Plan: His blood pressure readings have been elevated. He declined initiation of antihypertensive at his last visit Resting blood pressure today is 156/90, above goal of less than 140/90 He is willing to start medication treatment at this time Lisinopril ordered. Take as prescribed. Instructed on adverse reactions to immediately report Low-sodium diet and routine exercise encouraged Follow-up in 2 weeks or return sooner with worsening or new symptoms Verbalized understanding and agreed with treatment plan (3) Vaccine counseling: Code(s): Z71.85 - Encounter for immunization safety counseling Plan: He notes that he has not been vaccinated for shingles. 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 if he changes mind on hearing aid Follow-up as needed Verbalized understanding and agreed with the plan (5) Hemochromatosis: Code(s): E83.119 - Hemochromatosis, unspecified Qualifiers: Hemochromatosis type: other hemochromatosis Qualified Code(s): E83.118 - Other hemochromatosis Plan: Continue with phlebotomy every 2 months at [facility] Medications: New lisinopril 10 mg PO DAILY 30 days 30 tabs 3RF Coding Level of Care Code Est Pt Prev Care 40-64y(61654) Diagnoses Annual physical exam Z00.00 Primary hypertension I10 Hypertension type: primary hypertension Vaccine counseling Z71.85 Bilateral hearing loss H91.93 Other hemochromatosis E83.118 Hemochromatosis type: other hemochromatosis Additional Codes LAKESHA-7 Assessment Billing - LAKESHA-7 Assessment Tool: LAKESHA-7 Assessment [id number] ([id number])
[2023-04-11 09:13] VITALS: BP 156/90
== END 2023-04-11 09:33 | disposition home or self-care (01) ==
PROVIDERS: PCP Nurse Practitioner Family; Visit Provider Nurse Practitioner Family
DX: Z00.00 Encounter for general adult medical examination without abnormal findings (principal); I10 Essential (primary) hypertension; Z71.85 Encounter for immunization safety counseling; H91.93 Unspecified hearing loss, bilateral; E83.118 Other hemochromatosis
CPT/HCPCS: 99396

== ENCOUNTER 2023-05-01 08:46 | Outpatient (AMB) | payer OTHER, SELFPAY ==
[2023-05-01 08:49] VITALS: BP 140/86; PULSE 57; RESP 13; TEMP 36.5; O2SAT 99; BMI 30.5
--- NOTE | 2023-05-01 08:49 | A.OFFPC_ITS ---
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 Accompanied by: Self / Same As Patient Allergies No Known Allergies Allergy (Verified 05/01/23 08:59) Medication List - Last Reconciled 05/01/23 by Christiane Altman CNP lisinopril 10 mg PO DAILY 30 days naproxen 500 mg PO BID PRN pantoprazole 40 mg PO DAILY Tobacco use date assessed: 04/11/23 Dental Screening Dental Screen Date: 05/01/23 Did you have a dental visit in the last 12 months?: Yes Did you have a dental problem in the last 6 months where you did not have access to dental care?: No Was dental information given to patient?: Patient has dentist HPI HPI Comments History of Present Illness Details 56-year-old male presents for hypertensi on follow-up His last visit was almost 3 weeks ago. He was hypertensive, and was started on lisinopril 10 mg daily. He admits to taking his medications as prescribed without adverse reactions He offers no complaints and denies acute symptoms at this time [facility] Medical History Migraine GERD (gastroesophageal reflux disease) Body mass index (BMI) of 40.0 to 44.9 in adult Morbid obesity due to excess calories Neoplasm of uncertain behavior of face Male erectile dysfunction, unspecified Bilateral hearing loss Colon cancer Hemochromatosis Hemochromatosis Erectile dysfunction Morbid obesity due to excess calories Family history of colon cancer in father Adult BMI 40.0-44.9 kg/sq m Male erectile dysfunction, unspecified Hearing screen following failed hearing test Hemochromatosis Neoplasm of skin of face Sessile colonic polyp Surgical History H/O endoscopy History of removal of skin mole History of colonoscopy with polypectomy History of removal of skin mole History of colonoscopy Family History Father Colon cancer Mother History of mitral valve disorder Father Colon cancer Mother Kidney failure, acute Brother Myocardial infarction Sister Skin cancer Father Colon cancer Mother Mitral valve disease Kidney failure Brother Diabetes type 2, controlled Social History Household Members: None Housing: House Alcohol intake: current Alcohol intake frequency: holidays/special occasions only Patient Tobacco Use Status: Former Tobacco user Tobacco use type: Smokeless Tobacco e-Cigarette/Vaping Use: Former Use (ellyn) Substance Use Type: Marijuana service: No Current occupational status: employed Current occupation: [employer] Sexual orientation: Unable to collect Gender identity: Unable to collect Cognitive needs: No Hearing needs: Yes Vision needs: No Questionnaire Thrive Questionnaire Date Thrive assessed: 04/11/23 LAKESHA-7 AMB Questionnaire LAKESHA-7 Date LAKESHA - 7 assessed: 04/11/23 Source: Developed by Drs. Brandon Win, Christine Douglas, Alfonzo Brooks and colleagues, with an educational shira from [employer]. Review of Systems Const Details: Const Denies chills, Denies fatigue, Denies fever(s), Denies headache(s) and Denies weakness ENT Denies dizziness and Denies headache(s) Card Denies chest pain, Denies lightheadedness, Denies dyspnea and Denies other (Palpitations) Resp Denies cough, Denies dyspnea, Denies wheezing and Denies other ( shortness of breath) GI Denies abdominal pain, Denies melena, Denies hematochezia, Denies change in bowel habits, Denies dyspepsia and Denies nausea Denies hematuria and Denies dysuria Musc Denies abnormal gait, Denies myalgias, Denies arthralgias, Denies numbness and Denies tingling Skin/Breast Denies rash, Denies unusual bruising and Denies wounds Neuro Denies abnormal gait, Denies dizziness, Denies headache(s), Denies memory loss, Denies numbness, Denies Sensory deficit (Neuro), Denies tingling and Denies weakness Psych Denies anxiety, Denies depression, Denies memory loss Endo Denies cold intolerance, Denies fatigue, Denies heat intolerance, Denies polydipsia and Denies polyuria Aller/Immun Denies wheezing Physical exam (Primary Care) Vital Signs: Last Vital Signs Temp 97.7 F 05/01/23 08:49 Pulse 57 05/01/23 08:49 Resp 13 05/01/23 08:49 BP 140/86 H 05/01/23 08:49 Pulse Ox 99 05/01/23 08:49 Oxygen Delivery Method Room Air 05/01/23 08:49 BMI result Body Mass Index 30.5 Tobacco/Smoking Status: Tobacco use Status Tobacco use date assessed 04/11/23 05/01/23 08:52 Patient Tobacco Use Status Former Tobacco user 05/01/23 08:52 Tobacco use type Smokeless Tobacco 05/01/23 08:52 e-Cigarette/[facility]aping [facility] 05/01/23 08:52 Thrive Assessment: Date of Thrive Assessment Date Thrive assessed 04/11/23 05/01/23 08:52 Const Other: General: no acute distress and well developed Nutritional Appearance: well nourished Orientation/consciousness: patient oriented x3 HENMT Head: Yes normocephalic and Yes atraumatic Eyes General: appearance normal, both eyes and all related structures Pupils: Equal, round and reactive pupils present EOM: EOMs intact bilaterally Resp Effort & Inspection: normal respiratory effort Auscultation: clear to auscultation bilaterally Cardio Rate: regular rate Rhythm: regular rhythm Heart sounds: S1 normal heart sound present, S2 normal heart sound present, no gallops, no murmurs and no rubs GI Palpation (GI): No Abdominal aortic bruit present, Soft to palpation, nontender, No hepatosplenomegaly present and No Rebound tenderness present Auscultation: normal bowel sounds General: Yes no CVA tenderness Back/Spine/Pelvis Back: no CVA tenderness Cervical Spine: cervical ROM normal and No Cervical spine tenderness Thoracic/Lumbar Spine: thoraco-lumbar ROM normal, No pain with thoraco-lumbar ROM, No thoracic spinal tenderness and No lumbar spinal tenderness Extrem General: Yes normal to inspection, No edema and No calf tenderness Skin General: warm and dry. Normal skin color. Normal skin turgor Neuro General: patient oriented x3, gait normal and no focal neuro deficit Cranial nerves: Yes Equal, round and reactive pupils present Cognition (Neuro): normal cognition Gait exam (Neuro): Normal gait present Sensory Exam: No Sensory deficit (Neuro) Psych Appearance: grossly normal Affect: normal affect Attitude: cooperative Thought process: Normal thought process present Assessment and Plan Assessment & Plan (1) Hypertension: Code(s): I10 - Essential (primary) hypertension Qualifiers: Hypertension type: primary hypertension Qualified Code(s): I10 - Essential (primary) hypertension Plan: Resting blood pressure is 138/80, within goal of less than 140/90 but high end of normal Will increase Lisinopril to 20mg daily Low sodium diet and routine exercise encouraged Potential side effect to monitor and report reviewed with the patient Follow-up in 1 month or return sooner with symptoms or concerns Verbalized understanding and agreed with treatment plan Medications: New lisinopril 20 mg PO DAILY 30 tabs 3RF 30 days Discontinued lisinopril Discontinued Reason: Doctor's Order 10 mg PO DAILY 30 tabs 3RF 30 days Coding Level of Care Code Est Pt Level 3 (96028) Diagnoses Primary hypertension I10 Hypertension type: primary hypertension
[2023-05-01 09:02] VITALS: BP 138/80
== END 2023-05-01 09:09 | disposition home or self-care (01) ==
PROVIDERS: PCP Nurse Practitioner Family; Visit Provider Nurse Practitioner Family
DX: I10 Essential (primary) hypertension (principal)
CPT/HCPCS: 99213

== ENCOUNTER 2023-05-09 09:06 | Outpatient (REF) | payer OTHER, SELFPAY | END 2023-05-09 09:07 | disposition home or self-care (01) | LOC: HO.BBR 09:06 | PROVIDERS: PCP Nurse Practitioner Family; Visit Provider Internal Medicine Gastroenterology | DX: Z13.89 Encounter for screening for other disorder (principal) ==

== ENCOUNTER 2023-06-06 08:48 | Outpatient (AMB) | payer OTHER, SELFPAY ==
--- NOTE | 2023-06-06 08:54 | MHC.PC.OV ---
Vital Signs 06/06/23 08:57 06/06/23 08:59 Height 6 ft 1 in Weight 231 lb 2 oz BMI 30.5 BP 142/90 H 144/88 H Blood Pressure Location Lt brachial Lt brachial Position Sitting Sitting Respiration 16 Pulse 59 Pulse Source Pulse Oximeter Temp 98.3 F Temp Source Oral Pulse Oximetry (%) 99 Oxygen Delivery Method Room Air Intake Visit Reasons: Hypertension Intake Note: Follow up hypertension Child And Adolescent Psychologist Required: No Allergies No Known Allergies Allergy (Verified 06/06/23 09:27) Medication List - Last Reconciled 06/06/23 by Christiane Altman CNP lisinopril 20 mg PO DAILY 30 days naproxen 500 mg PO BID PRN pantoprazole 40 mg PO DAILY Tobacco use date assessed: 06/06/23 Dental Screening Dental Screen Date: 06/06/23 Did you have a dental visit in the last 12 months?: Yes Did you have a dental problem in the last 6 months where you did not have access to dental care?: No Was dental information given to patient?: Patient has dentist HPI HPI Comments History of Present Illness Details 58-year-old male presents for hypertension follow-up. He admits to taking lisinopril 20 mg daily without adverse reactions. He admits to maintaining a low sodium diet. He notes that his blood pressure started to increase after his over a year ago. He states that he is now adjusting well. He denies acute symptoms at this time. [facility] Medical History Migraine GERD (gastroesophageal reflux disease) Body mass index (BMI) of 40.0 to 44.9 in adult Morbid obesity due to excess calories Neoplasm of uncertain behavior of face Male erectile dysfunction, unspecified Bilateral hearing loss Colon cancer Hemochromatosis Hemochromatosis Erectile dysfunction Morbid obesity due to excess calories Family history of colon cancer in father Adult BMI 40.0-44.9 kg/sq m Male erectile dysfunction, unspecified Hearing screen following failed hearing test Hemochromatosis Neoplasm of skin of face Sessile colonic polyp Surgical History H/O endoscopy History of removal of skin mole History of colonoscopy with polypectomy History of removal of skin mole History of colonoscopy Family History Father Colon cancer Mother History of mitral valve disorder Father Colon cancer Mother Kidney failure, acute Brother Myocardial infarction Sister Skin cancer Father Colon cancer Mother Mitral valve disease Kidney failure Brother Diabetes type 2, controlled Social History Household Members: None Housing: House Alcohol intake: current Alcohol intake frequency: holidays/special occasions only Patient Tobacco Use Status: Former Tobacco user Tobacco use type: Smokeless Tobacco e-Cigarette/Vaping Use: Former Use ([employer]) Substance Use Type: Marijuana service: No Current occupational status: employed Current occupation: [employer] Current occupational exposures/hazards: No Sexual orientation: Unable to collect Gender identity: Unable to collect Cognitive needs: No Hearing needs: Yes Vision needs: No Questionnaire PHQ-9 Over the last 2 weeks, how often have you been bothered by any of the following problems? 1. Little interest or pleasure in doing things: not at all 2. Feeling down, depressed, or hopeless: several days 3. Trouble falling or staying asleep, or sleeping too much: several days 4. Feeling tired or having little energy: not at all 5. Poor appetite or overeating: not at all 6. Feeling bad about yourself - or that you are a failure or have let yourself or your family down: not at all 7. Trouble concentrating on things, such as reading the newspaper or watching television: not at all 8. Moving or speaking so slowly that other people could have noticed. Or the opposite - being so fidgety or restless that you have been moving around a lot more than usual: not at all 9. Thoughts that you would be better off or of hurting yourself in some way: not at all Total score: 2 Depression Screening Interpretation: Negative Depression Screening Done: Yes Source: Developed by Drs. Brandon Win, Christine Douglas, Alfonzo Brooks and colleagues, with an educational shira from [email or web address]. Thrive Questionnaire Date Thrive assessed: 04/11/23 AUDIT C Alcohol Use Questionnaire (AUDIT-C) 1. How often do you have a drink containing alcohol?: Monthly or less 2. How many drinks containing alcohol do you have on a typical day when you are drinking?: 1 or 2 3. How often do you have six or more drinks on one occasion?: Less than monthly Total Score: 2 LAKESHA-7 AMB Questionnaire LAKESHA-7 Date LAKESHA - 7 assessed: 04/11/23 Feeling nervous, anxious, or on edge: 2 = More than half the days Not being able to stop or control worryin = Not at all Worrying too much about different things: 0 = Not at all Trouble relaxin = Not at all Being so restless that it is hard to sit still: 0 = Not at all Becoming easily annoyed or irritable: 0 = Not at all Feeling afraid as if something awful might happen: 0 = Not at all Total LAKESHA-7 score (0-4 normal; 5-9 mild; 10-14 moderate; 15-21 severe): 2 Source: Developed by Drs. Brandon Win, Christine Douglas, Alfonzo Brooks and colleagues, with an educational shira from [email or web address]. Review of Systems Const Details: Const Denies chills, Denies fatigue, Denies fever(s), Denies headache(s) and Denies weakness ENT Denies dizziness and Denies headache(s) Card Denies chest pain, Denies lightheadedness, Denies dyspnea and Denies other (Palpitations) Resp Denies cough, Denies dyspnea, Denies wheezing and Denies other ( shortness of breath) GI Denies abdominal pain, Denies melena, Denies hematochezia, Denies change in bowel habits, Denies dyspepsia and Denies nausea Denies hematuria and Denies dysuria Musc Denies abnormal gait, Denies myalgias, Denies arthralgias, Denies numbness and Denies tingling Skin/Breast Denies rash, Denies unusual bruising and Denies wounds Neuro Denies abnormal gait, Denies dizziness, Denies headache(s), Denies memory loss, Denies numbness, Denies Sensory deficit (Neuro), Denies tingling and Denies weakness Psych Denies anxiety, Denies depression, Denies memory loss Endo Denies cold intolerance, Denies fatigue, Denies heat intolerance, Denies polydipsia and Denies polyuria Aller/Immun Denies wheezing Physical exam (Primary Care) Vital Signs: Last Vital Signs Temp 98.3 F 06/06/23 08:57 Pulse 59 06/06/23 08:57 Resp 16 06/06/23 08:57 BP 144/88 H 06/06/23 08:59 Pulse Ox 99 06/06/23 08:57 Oxygen Delivery Method Room Air 06/06/23 08:57 BMI result Body Mass Index 30.5 Tobacco/Smoking Status: Tobacco use Status Tobacco use date assessed 06/06/23 06/06/23 08:59 Patient Tobacco Use Status Former Tobacco user 06/06/23 08:59 Tobacco use type Smokeless Tobacco 06/06/23 08:59 e-Cigarette/Vaping Use Former Use ([employer]) 06/06/23 08:59 Depression Screening Interpretation: Negative Thrive Assessment: Date of Thrive Assessment Date Thrive assessed 04/11/23 06/06/23 08:59 Const Other: General: no acute distress and well developed Nutritional Appearance: well nourished Orientation/consciousness: patient oriented x3 HENMT Head: Yes normocephalic and Yes atraumatic Eyes General: appearance normal, both eyes and all related structures Pupils: Equal, round and reactive pupils present EOM: EOMs intact bilaterally Resp Effort & Inspection: normal respiratory effort Auscultation: clear to auscultation bilaterally Cardio Rate: regular rate Rhythm: regular rhythm Heart sounds: S1 normal heart sound present, S2 normal heart sound present, no gallops, no murmurs and no rubs GI Palpation (GI): No Abdominal aortic bruit present, Soft to palpation, nontender, No hepatosplenomegaly present and No Rebound tenderness present Auscultation: normal bowel sounds General: Yes no CVA tenderness Back/Spine/Pelvis Back: no CVA tenderness Cervical Spine: cervical ROM normal and No Cervical spine tenderness Thoracic/Lumbar Spine: thoraco-lumbar ROM normal, No pain with thoraco-lumbar ROM, No thoracic spinal tenderness and No lumbar spinal tenderness Extrem General: Yes normal to inspection, No edema and No calf tenderness Skin General: warm and dry. Normal skin color. Normal skin turgor Neuro General: patient oriented x3, gait normal and no focal neuro deficit Cranial nerves: Yes Equal, round and reactive pupils present Cognition (Neuro): normal cognition Gait exam (Neuro): Normal gait present Sensory Exam: No Sensory deficit (Neuro) Psych Appearance: grossly normal Affect: normal affect Attitude: cooperative Thought process: Normal thought process present Assessment and Plan Assessment & Plan (1) Hypertension: Code(s): I10 - Essential (primary) hypertension Qualifiers: Hypertension type: primary hypertension Qualified Code(s): I10 - Essential (primary) hypertension Plan: Resting blood pressure is 144/88, slightly above goal of less than 140/80 Will increase lisinopril to 40 mg daily. Advised to take as prescribed Low-sodium diet and routine exercise encouraged Follow-up in 2 weeks or return sooner with symptoms or concerns Verbalized understanding and agreed with treatment plan Coding Level of Care Code Est Pt Level 3 (99897) Diagnoses Primary hypertension I10 Hypertension type: primary hypertension
[2023-06-06 08:57] VITALS: BP 142/90; PULSE 59; RESP 16; TEMP 36.8; O2SAT 99; BMI 30.5
[2023-06-06 08:59] VITALS: BP 144/88
== END 2023-06-06 09:40 | disposition home or self-care (01) ==
PROVIDERS: PCP Nurse Practitioner Family; Visit Provider Nurse Practitioner Family
DX: I10 Essential (primary) hypertension (principal)
CPT/HCPCS: 99213

== ENCOUNTER 2023-06-20 11:03 | Outpatient (AMB) | payer OTHER, SELFPAY ==
[2023-06-20 11:07] VITALS: BP 118/78; PULSE 75; RESP 14; TEMP 36.4; O2SAT 99; BMI 30.1
--- NOTE | 2023-06-20 11:07 | MHC.PC.OV ---
Vital Signs 06/20/23 11:07 Height 6 ft 1 in Weight 228 lb 8 oz BMI 30.1 BP 118/78 Blood Pressure Location Lt brachial Position Sitting Respiration 14 Pulse 75 Pulse Source Pulse Oximeter Temp 97.5 F Temp Source Temporal Artery Scan Pulse Oximetry (%) 99 Oxygen Delivery Method Room Air Intake Visit Reasons: 2 wks HTN Sales Project Administrator Required: No Accompanied by: Self / Same As Patient Allergies No Known Allergies Allergy (Verified 06/20/23 11:42) Medication List - Last Reconciled 06/20/23 by Christiane Altman CNP lisinopril 40 mg PO DAILY 30 days naproxen 500 mg PO BID PRN pantoprazole 40 mg PO DAILY Tobacco use date assessed: 06/06/23 Dental Screening Dental Screen Date: 06/20/23 Did you have a dental visit in the last 12 months?: Yes Did you have a dental problem in the last 6 months where you did not have access to dental care?: No Was dental information given to patient?: Patient has dentist HPI HPI Comments History of Present Illness Details 58-year-old male presents for hypertension follow-up. He admits to taking lisinopril 40 mg daily without adverse reactions. He admits to maintaining a low sodium diet. He denies acute symptoms at this time. [facility] Medical History Migraine GERD (gastroesophageal reflux disease) Body mass index (BMI) of 40.0 to 44.9 in adult Morbid obesity due to excess calories Neoplasm of uncertain behavior of face Male erectile dysfunction, unspecified Bilateral hearing loss Colon cancer Hemochromatosis Hemochromatosis Erectile dysfunction Morbid obesity due to excess calories Family history of colon cancer in father Adult BMI 40.0-44.9 kg/sq m Male erectile dysfunction, unspecified Hearing screen following failed hearing test Hemochromatosis Neoplasm of skin of face Sessile colonic polyp Surgical History H/O endoscopy History of removal of skin mole History of colonoscopy with polypectomy History of removal of skin mole History of colonoscopy Family History Father Colon cancer Mother History of mitral valve disorder Father Colon cancer Mother Kidney failure, acute Brother Myocardial infarction Sister Skin cancer Father Colon cancer Mother Mitral valve disease Kidney failure Brother Diabetes type 2, controlled Social History Household Members: None Both parents involved: No Caregiver staying overnight: No Housing: House Are you a primary early breastfeeding care specialist to a significant other at home: No 75 years or older and lives alone: No Alcohol intake: current Alcohol intake frequency: holidays/special occasions only Patient Tobacco Use Status: Former Tobacco user Tobacco use type: Smokeless Tobacco e-Cigarette/Vaping Use: Former Use () Substance Use Type: Marijuana service: No Current occupational status: employed Current occupation: [employer] Current occupational exposures/hazards: No Sexual orientation: Unable to collect Gender identity: Unable to collect Cognitive needs: No Hearing needs: Yes Vision needs: No Questionnaire Thrive Questionnaire Date Thrive assessed: 04/11/23 LAKESHA-7 AMB Questionnaire LAKESHA-7 Date LAKESHA - 7 assessed: 04/11/23 Source: Developed by Drs. Brandon Win, Christine Douglas, Alfonzo Brooks and colleagues, with an educational shira from [employer]. Review of Systems Const Details: Const Denies chills, Denies fatigue, Denies fever(s), Denies headache(s) and Denies weakness ENT Denies dizziness and Denies headache(s) Card Denies chest pain, Denies lightheadedness, Denies dyspnea and Denies other (Palpitations) Resp Denies cough, Denies dyspnea, Denies wheezing and Denies other ( shortness of breath) GI Denies abdominal pain, Denies melena, Denies hematochezia, Denies change in bowel habits, Denies dyspepsia and Denies nausea Denies hematuria and Denies dysuria Musc Denies abnormal gait, Denies myalgias, Denies arthralgias, Denies numbness and Denies tingling Skin/Breast Denies rash, Denies unusual bruising and Denies wounds Neuro Denies abnormal gait, Denies dizziness, Denies headache(s), Denies memory loss, Denies numbness, Denies Sensory deficit (Neuro), Denies tingling and Denies weakness Psych Denies anxiety, Denies depression, Denies memory loss Endo Denies cold intolerance, Denies fatigue, Denies heat intolerance, Denies polydipsia and Denies polyuria Aller/Immun Denies wheezing Physical exam (Primary Care) Vital Signs: Last Vital Signs Temp 97.5 F 06/20/23 11:07 Pulse 75 06/20/23 11:07 Resp 14 06/20/23 11:07 BP 118/78 06/20/23 11:07 Pulse Ox 99 06/20/23 11:07 Oxygen Delivery Method Room Air 06/20/23 11:07 BMI result Body Mass Index 30.1 Tobacco/Smoking Status: Tobacco use Status Tobacco use date assessed 06/06/23 06/20/23 11:13 Patient Tobacco Use Status Former Tobacco user 06/20/23 11:13 Tobacco use type Smokeless Tobacco 06/20/23 11:13 e-Cigarette/Vaping Use Former Use ([employer]) 06/20/23 11:13 Thrive Assessment: Date of Thrive Assessment Date Thrive assessed 04/11/23 06/20/23 11:13 Const Other: General: no acute distress and well developed Nutritional Appearance: well nourished Orientation/consciousness: patient oriented x3 HENMT Head: Yes normocephalic and Yes atraumatic Eyes General: appearance normal, both eyes and all related structures Pupils: Equal, round and reactive pupils present EOM: EOMs intact bilaterally Resp Effort & Inspection: normal respiratory effort Auscultation: clear to auscultation bilaterally Cardio Rate: regular rate Rhythm: regular rhythm Heart sounds: S1 normal heart sound present, S2 normal heart sound present, no gallops, no murmurs and no rubs GI Palpation (GI): No Abdominal aortic bruit present, Soft to palpation, nontender, No hepatosplenomegaly present and No Rebound tenderness present Auscultation: normal bowel sounds General: Yes no CVA tenderness Back/Spine/Pelvis Back: no CVA tenderness Cervical Spine: cervical ROM normal and No Cervical spine tenderness Thoracic/Lumbar Spine: thoraco-lumbar ROM normal, No pain with thoraco-lumbar ROM, No thoracic spinal tenderness and No lumbar spinal tenderness Extrem General: Yes normal to inspection, No edema and No calf tenderness Skin General: warm and dry. Normal skin color. Normal skin turgor Neuro General: patient oriented x3, gait normal and no focal neuro deficit Cranial nerves: Yes Equal, round and reactive pupils present Cognition (Neuro): normal cognition Gait exam (Neuro): Normal gait present Sensory Exam: No Sensory deficit (Neuro) Psych Appearance: grossly normal Affect: normal affect Attitude: cooperative Thought process: Normal thought process present Assessment and Plan Assessment & Plan (1) Hypertension: Code(s): I10 - Essential (primary) hypertension Qualifiers: Hypertension type: primary hypertension Qualified Code(s): I10 - Essential (primary) hypertension Plan: Blood pressure is 118/78, within goal of less than 140/90 Continue to take lisinopril 40 mg daily Low-sodium diet encouraged Follow-up in 2 months or return sooner with symptoms or concerns Verbalized understanding and agreed with treatment plan Coding Level of Care Code Est Pt Level 3 (01287) Diagnoses Primary hypertension I10 Hypertension type: primary hypertension
== END 2023-06-20 11:49 | disposition home or self-care (01) ==
PROVIDERS: PCP Nurse Practitioner Family; Visit Provider Nurse Practitioner Family
DX: I10 Essential (primary) hypertension (principal)
CPT/HCPCS: 99213

== ENCOUNTER 2023-07-07 07:54 | Outpatient (REF) | payer OTHER, SELFPAY ==
--- NOTE | ~2023-07-07 | XR_ITS ---
EXAMINATION: XR HIP, LEFT Pelvis: CLINICAL INFORMATION: Pain in the left hip COMPARISON: None available. TECHNIQUE: Two views of the left hip. Single view the pelvis FINDINGS: Left hip: Advanced osteoarthritis moderate to severe with prominent joint space narrowing along the superior aspect of the joint along with marginal osteophytes Right hip: Mild to moderate osteoarthritis with joint space narrowing and subchondral cystic change and marginal osteophytes. Small os acetabuli. Remaining bone and joints in the pelvis are normal. XR/XR hip LT w [id number] IMPRESSION: LEFT HIP: Advanced moderate to severe osteoarthritis. RIGHT HIP: Mild to moderate osteoarthritis.
== END 2023-07-07 07:55 | disposition home or self-care (01) ==
LOC: HO.BBR 07:54
PROVIDERS: PCP Nurse Practitioner Family; Visit Provider Internal Medicine Gastroenterology
DX: M25.552 Pain in left hip (principal); G89.29 Other chronic pain
CPT/HCPCS: 73502

== ENCOUNTER 2023-08-15 08:48 | Outpatient (AMB) | payer OTHER, SELFPAY ==
[2023-08-15 08:53] VITALS: BP 128/84; PULSE 53; RESP 14; TEMP 36.6; O2SAT 99; BMI 30.4
--- NOTE | 2023-08-15 08:53 | MHC.PC.OV ---
Vital Signs 08/15/23 08:53 08/15/23 09:29 Height 6 ft 1 in Weight 230 lb 6 oz BMI 30.4 BP 128/84 Blood Pressure Location Lt brachial Position Sitting Respiration 14 Pulse 53 56 Pulse Source Pulse Oximeter Auscultation Temp 97.8 F Temp Source Temporal Artery Scan Pulse Oximetry (%) 99 Oxygen Delivery Method Room Air Intake Visit Reasons: 2 MTHS HTN Bon[place] Dipper Required: No Accompanied by: Self / Same As Patient Allergies No Known Allergies Allergy (Verified 08/15/23 09:25) Medication List - Last Reconciled 08/15/23 by Christiane Altman CNP lisinopril 40 mg PO DAILY 30 days naproxen 500 mg PO BID PRN pantoprazole 40 mg PO DAILY Tobacco use date assessed: 06/06/23 Dental Screening Dental Screen Date: 08/15/23 Did you have a dental visit in the last 12 months?: Yes Did you have a dental problem in the last 6 months where you did not have access to dental care?: No Was dental information given to patient?: Patient has dentist HPI HPI Comments History of Present Illness Details 58-year-old male presents for hypertension follow-up. He admits to taking lisinopril 40 mg daily without adverse reactions. He admits to maintaining a low sodium diet. He denies acute symptoms at this time. [facility] Medical History Migraine GERD (gastroesophageal reflux disease) Body mass index (BMI) of 40.0 to 44.9 in adult Morbid obesity due to excess calories Neoplasm of uncertain behavior of face Male erectile dysfunction, unspecified Bilateral hearing loss Colon cancer Hemochromatosis Hemochromatosis Erectile dysfunction Morbid obesity due to excess calories Family history of colon cancer in father Adult BMI 40.0-44.9 kg/sq m Male erectile dysfunction, unspecified Hearing screen following failed hearing test Hemochromatosis Neoplasm of skin of face Sessile colonic polyp Surgical History H/O endoscopy History of removal of skin mole History of colonoscopy with polypectomy History of removal of skin mole History of colonoscopy Family History Father Colon cancer Mother History of mitral valve disorder Father Colon cancer Mother Kidney failure, acute Brother Myocardial infarction Sister Skin cancer Father Colon cancer Mother Mitral valve disease Kidney failure Brother Diabetes type 2, controlled Social History Household Members: None Both parents involved: No Caregiver staying overnight: No Housing: House Are you a primary director of medicare to a significant other at home: No 75 years or older and lives alone: No Alcohol intake: current Alcohol intake frequency: holidays/special occasions only Patient Tobacco Use Status: Former Tobacco user Tobacco use type: Smokeless Tobacco e-Cigarette/Vaping Use: Former Use ([employer]) Substance Use Type: Marijuana service: No Current occupational status: employed Current occupation: [employer] Current occupational exposures/hazards: No Sexual orientation: Unable to collect Gender identity: Unable to collect Cognitive needs: No Hearing needs: Yes Vision needs: No Questionnaire Thrive Questionnaire Date Thrive assessed: 04/11/23 LAKESHA-7 AMB Questionnaire LAKESHA-7 Date LAKESHA - 7 assessed: 04/11/23 Source: Developed by Drs. Brandon Win, Christine Douglas, Alfonzo Brooks and colleagues, with an educational shira from [employer]. Review of Systems Const Details: Const Denies chills, Denies fatigue, Denies fever(s), Denies headache(s) and Denies weakness ENT Denies dizziness and Denies headache(s) Card Denies chest pain, Denies lightheadedness, Denies dyspnea and Denies other (Palpitations) Resp Denies cough, Denies dyspnea, Denies wheezing and Denies other ( shortness of breath) GI Denies abdominal pain, Denies melena, Denies hematochezia, Denies change in bowel habits, Denies dyspepsia and Denies nausea Denies hematuria and Denies dysuria Musc Denies abnormal gait, Denies myalgias, Denies arthralgias, Denies numbness and Denies tingling Skin/Breast Denies rash, Denies unusual bruising and Denies wounds Neuro Denies abnormal gait, Denies dizziness, Denies headache(s), Denies memory loss, Denies numbness, Denies Sensory deficit (Neuro), Denies tingling and Denies weakness Psych Denies anxiety, Denies depression, Denies memory loss Endo Denies cold intolerance, Denies fatigue, Denies heat intolerance, Denies polydipsia and Denies polyuria Aller/Immun Denies wheezing Physical exam (Primary Care) Vital Signs: Last Vital Signs Temp 97.8 F 08/15/23 08:53 Pulse 53 08/15/23 08:53 Resp 14 08/15/23 08:53 BP 128/84 08/15/23 08:53 Pulse Ox 99 08/15/23 08:53 Oxygen Delivery Method Room Air 08/15/23 08:53 BMI result Body Mass Index 30.4 Tobacco/Smoking Status: Tobacco use Status Tobacco use date assessed 06/06/23 08/15/23 08:53 Patient Tobacco Use Status Former Tobacco user 08/15/23 08:53 Tobacco use type Smokeless Tobacco 08/15/23 08:53 e-Cigarette/Vaping Use Former Use ([employer]) 08/15/23 08:53 Thrive Assessment: Date of Thrive Assessment Date Thrive assessed 04/11/23 08/15/23 08:53 Const Other: General: no acute distress and well developed Nutritional Appearance: well nourished Orientation/consciousness: patient oriented x3 HENMT Head: Yes normocephalic and Yes atraumatic Eyes General: appearance normal, both eyes and all related structures Pupils: Equal, round and reactive pupils present EOM: EOMs intact bilaterally Resp Effort & Inspection: normal respiratory effort Auscultation: clear to auscultation bilaterally Cardio Rate: regular rate Rhythm: regular rhythm Heart sounds: S1 normal heart sound present, S2 normal heart sound present, no gallops, no murmurs and no rubs GI Palpation (GI): No Abdominal aortic bruit present, Soft to palpation, nontender, No hepatosplenomegaly present and No Rebound tenderness present Auscultation: normal bowel sounds General: Yes no CVA tenderness Back/Spine/Pelvis Back: no CVA tenderness Cervical Spine: cervical ROM normal and No Cervical spine tenderness Thoracic/Lumbar Spine: thoraco-lumbar ROM normal, No pain with thoraco-lumbar ROM, No thoracic spinal tenderness and No lumbar spinal tenderness Extrem General: Yes normal to inspection, No edema and No calf tenderness Skin General: warm and dry. Normal skin color. Normal skin turgor Neuro General: patient oriented x3, gait normal and no focal neuro deficit Cranial nerves: Yes Equal, round and reactive pupils present Cognition (Neuro): normal cognition Gait exam (Neuro): Normal gait present Sensory Exam: No Sensory deficit (Neuro) Psych Appearance: grossly normal Affect: normal affect Attitude: cooperative Thought process: Normal thought process present Assessment and Plan Assessment & Plan (1) Hypertension: Code(s): I10 - Essential (primary) hypertension Qualifiers: Hypertension type: primary hypertension Qualified Code(s): I10 - Essential (primary) hypertension Plan: Blood pressure is 128/84, within goal of less than 140/90 Continue current treatment regimen Low-sodium diet encouraged Follow-up in 3 months or sooner with symptoms or concerns Verbalized understanding and agreed with treatment plan (2) Chronic left hip pain: Code(s): M25.552 - Pain in left hip; G89.29 - Other chronic pain Plan: Recent x-ray of hips/pelvis reviewed with the patient He notes significant improvement of his pain Encouraged to continue current treatment regimen. May referred to orthopedics with persistent or worsening symptoms Verbalized understanding and agreed with treatment plan Coding Level of Care Code Est Pt Level 4 (68946) Complex EM visit Add On G2211 Diagnoses Primary hypertension I10 Hypertension type: primary hypertension Chronic left hip pain M25.552; G89.29
[2023-08-15 09:29] VITALS: PULSE 56
== END 2023-08-15 09:34 | disposition home or self-care (01) ==
PROVIDERS: PCP Nurse Practitioner Family; Visit Provider Nurse Practitioner Family
DX: I10 Essential (primary) hypertension (principal); M25.552 Pain in left hip; G89.29 Other chronic pain
CPT/HCPCS: 99214; G2211

== ENCOUNTER 2023-09-12 08:58 | Outpatient (REF) | payer OTHER, SELFPAY | END 2023-09-12 08:59 | disposition home or self-care (01) | LOC: HO.BBR 08:58 | PROVIDERS: PCP Nurse Practitioner Family; Visit Provider Internal Medicine Gastroenterology | DX: Z13.89 Encounter for screening for other disorder (principal) ==

== ENCOUNTER 2023-11-07 09:02 | Outpatient (REF) | payer OTHER, SELFPAY | END 2023-11-07 09:03 | disposition home or self-care (01) | LOC: HO.BBR 09:02 | PROVIDERS: PCP Nurse Practitioner Family; Visit Provider Internal Medicine Gastroenterology | DX: Z13.89 Encounter for screening for other disorder (principal) ==

== ENCOUNTER 2023-11-21 08:22 | Outpatient (AMB) | payer OTHER, SELFPAY ==
--- NOTE | 2023-11-21 08:24 | MHC.PC.OV ---
Vital Signs 11/21/23 08:25 Height 6 ft 1 in Weight 232 lb 8 oz BMI 30.7 BP 132/72 Blood Pressure Location Rt brachial Position Sitting Respiration 14 Pulse 52 Pulse Source Pulse Oximeter Temp 98.0 F Temp Source Oral Pulse Oximetry (%) 96 Oxygen Delivery Method Room Air Intake Visit Reasons: 3 MTHS HTN Intake Note: follow up on hypertension Allergies No Known Allergies Allergy (Verified 11/21/23 08:31) Medication List - Last Reconciled 11/21/23 by Christiane Altman CNP lisinopril 40 mg PO DAILY 30 days naproxen 500 mg PO BID PRN pantoprazole 40 mg PO DAILY Tobacco use date assessed: 06/06/23 Dental Screening Dental Screen Date: 08/15/23 HPI HPI Comments History of Present Illness Details 58-year-old male presents for hypertension follow-up. He admits to taking lisinopril 40 mg daily without adverse reactions. He has been maintaining a healthy lifestyle, including low-sodium diet. He notes that this week will be 2 years when his suddenly due to myocardial infarction and ischemic bowel. She had no significant past medical history. They have 2 sons who were currently in college. He has been struggling to cope with the loss of his . His dog has been a source of emotional support. He sleeps an average of 8-10 hours nightly but wakes up every 2 hours. He notes that I am always sad. He is still able to work and care for himself and his children. He denies suicidal or homicidal ideation. [facility] Medical History Migraine GERD (gastroesophageal reflux disease) Body mass index (BMI) of 40.0 to 44.9 in adult Morbid obesity due to excess calories Neoplasm of uncertain behavior of face Male erectile dysfunction, unspecified Bilateral hearing loss Colon cancer Hemochromatosis Hemochromatosis Erectile dysfunction Morbid obesity due to excess calories Family history of colon cancer in father Adult BMI 40.0-44.9 kg/sq m Male erectile dysfunction, unspecified Hearing screen following failed hearing test Hemochromatosis Neoplasm of skin of face Sessile colonic polyp Surgical History H/O endoscopy History of removal of skin mole History of colonoscopy with polypectomy History of removal of skin mole History of colonoscopy Family History Father Colon cancer Mother History of mitral valve disorder Father Colon cancer Mother Kidney failure, acute Brother Myocardial infarction Sister Skin cancer Father Colon cancer Mother Mitral valve disease Kidney failure Brother Diabetes type 2, controlled Social History Household Members: None Both parents involved: No Caregiver staying overnight: No Housing: House Are you a primary career professional to a significant other at home: No 75 years or older and lives alone: No Alcohol intake: current Alcohol intake frequency: holidays/special occasions only Patient Tobacco Use Status: Former Tobacco user Tobacco use type: Smokeless Tobacco e-Cigarette/Vaping Use: Former Use ([employer]) Substance Use Type: Marijuana service: No Current occupational status: employed Current occupation: [employer] Current occupational exposures/hazards: No Sexual orientation: Unable to collect Gender identity: Unable to collect Cognitive needs: No Hearing needs: Yes Vision needs: No Questionnaire PHQ-9 Over the last 2 weeks, how often have you been bothered by any of the following problems? 1. Little interest or pleasure in doing things: more than half the days 2. Feeling down, depressed, or hopeless: several days 3. Trouble falling or staying asleep, or sleeping too much: nearly every day 4. Feeling tired or having little energy: not at all 5. Poor appetite or overeating: not at all 6. Feeling bad about yourself - or that you are a failure or have let yourself or your family down: several days 7. Trouble concentrating on things, such as reading the newspaper or watching television: several days 8. Moving or speaking so slowly that other people could have noticed. Or the opposite - being so fidgety or restless that you have been moving around a lot more than usual: several days 9. Thoughts that you would be better off or of hurting yourself in some way: not at all Total score: 9 Depression Screening Interpretation: Positive Depression Screening Follow-up: Community Mental Health Worker F/U Depression Screening Done: Yes 06606 - PHQ-9 Billing: Yes Source: Developed by Drs. Brandon Win, ChristineAlfonzo Mai and colleagues, with an educational shira from [employer]. Thrive Questionnaire Date Thrive assessed: 04/11/23 AUDIT C Alcohol Use Questionnaire (AUDIT-C) 2. How many drinks containing alcohol do you have on a typical day when you are drinking?: 1 or 2 3. How often do you have six or more drinks on one occasion?: Less than monthly Total Score: 1 LAKESHA-7 AMB Questionnaire LAKESHA-7 Date LAKESHA - 7 assessed: 11/21/23 Feeling nervous, anxious, or on edge: 1 = Several days Not being able to stop or control worryin = Not at all Worrying too much about different things: 0 = Not at all Trouble relaxin = Several days Being so restless that it is hard to sit still: 1 = Several days Becoming easily annoyed or irritable: 0 = Not at all Feeling afraid as if something awful might happen: 0 = Not at all Total LAKESHA-7 score (0-4 normal; 5-9 mild; 10-14 moderate; 15-21 severe): 3 Source: Developed by Drs. Brandon Win, Alfonzo Almanzar and colleagues, with an educational shira from [employer]. LAKESHA-7 Assessment Billing LAKESHA-7 Assessment Tool: LAKESHA-7 Assessment 59991 Review of Systems Const Details: Const Denies chills, Denies fatigue, Denies fever(s), Denies headache(s) and Denies weakness ENT Denies dizziness and Denies headache(s) Card Denies chest pain, Denies lightheadedness, Denies dyspnea and Denies other (Palpitations) Resp Denies cough, Denies dyspnea, Denies wheezing and Denies other ( shortness of breath) GI Denies abdominal pain, Denies melena, Denies hematochezia, Denies change in bowel habits, Denies dyspepsia and Denies nausea Denies hematuria and Denies dysuria Musc Denies abnormal gait, Denies myalgias, Denies arthralgias, Denies numbness and Denies tingling Skin/Breast Denies rash, Denies unusual bruising and Denies wounds Neuro Denies abnormal gait, Denies dizziness, Denies headache(s), Denies memory loss, Denies numbness, Denies Sensory deficit (Neuro), Denies tingling and Denies weakness Psych Reports anxiety, Reports depression, Denies memory loss Endo Denies cold intolerance, Denies fatigue, Denies heat intolerance, Denies polydipsia and Denies polyuria Aller/Immun Denies wheezing Physical exam (Primary Care) Vital Signs: Last Vital Signs Temp 98.0 F 11/21/23 08:25 Pulse 52 11/21/23 08:25 Resp 14 11/21/23 08:25 BP 132/72 11/21/23 08:25 Pulse Ox 96 11/21/23 08:25 Oxygen Delivery Method Room Air 11/21/23 08:25 BMI result Body Mass Index 30.7 Tobacco/Smoking Status: Tobacco use Status Tobacco use date assessed 06/06/23 11/21/23 08:28 Patient Tobacco Use Status Former Tobacco user 11/21/23 08:28 Tobacco use type Smokeless Tobacco 11/21/23 08:28 e-Cigarette/Vaping Use Former Use ([employer]) 11/21/23 08:28 Depression Screening Interpretation: Positive Depression Screening Follow-up: Community Mental Health Worker F/U Thrive Assessment: Date of Thrive Assessment Date Thrive assessed 04/11/23 11/21/23 08:28 Const Other: General: no acute distress and well developed Nutritional Appearance: well nourished Orientation/consciousness: patient oriented x3 HENMT Head: Yes normocephalic and Yes atraumatic Eyes General: appearance normal, both eyes and all related structures Pupils: Equal, round and reactive pupils present EOM: EOMs intact bilaterally Resp Effort & Inspection: normal respiratory effort Auscultation: clear to auscultation bilaterally Cardio Rate: regular rate Rhythm: regular rhythm Heart sounds: S1 normal heart sound present, S2 normal heart sound present, no gallops, no murmurs and no rubs GI Palpation (GI): No Abdominal aortic bruit present, Soft to palpation, nontender, No hepatosplenomegaly present and No Rebound tenderness present Auscultation: normal bowel sounds General: Yes no CVA tenderness Back/Spine/Pelvis Back: no CVA tenderness Cervical Spine: cervical ROM normal and No Cervical spine tenderness Thoracic/Lumbar Spine: thoraco-lumbar ROM normal, No pain with thoraco-lumbar ROM, No thoracic spinal tenderness and No lumbar spinal tenderness Extrem General: Yes normal to inspection, No edema and No calf tenderness Skin General: warm and dry. Normal skin color. Normal skin turgor Neuro General: patient oriented x3, gait normal and no focal neuro deficit Cranial nerves: Yes Equal, round and reactive pupils present Cognition (Neuro): normal cognition Gait exam (Neuro): Normal gait present Sensory Exam: No Sensory deficit (Neuro) Psych Appearance: grossly normal Affect: normal affect Attitude: cooperative Thought process: Normal thought process present Assessment and Plan Assessment & Plan (1) Hypertension: Code(s): I10 - Essential (primary) hypertension Qualifiers: Hypertension type: primary hypertension Qualified Code(s): I10 - Essential (primary) hypertension Plan: Blood pressure is 132/72, within goal of less than 140/90 Continue current treatment regimen Low-sodium diet encouraged Follow-up in 3 months or sooner with symptoms or concerns Verbalized understanding and agreed with the plan (2) Complicated grief: Code(s): F43.21 - Adjustment disorder with depressed mood Plan: He has been grieving loss of his for almost 2 years. His sleep is interrupted. He is always sad. He is able to work and take care of himself and his children PHQ-9 reveals mild depression. LAKESHA-7 score is normal Declines psychotropic medication at this time May take melatonin for sleep Routine exercise encouraged He met with the [facility] who will refer him to a therapist Encouraged to follow-up with worsening or new symptoms Verbalized understanding and agreed with the plan Coding Level of Care Code Est Pt Level 4 (63277) Complex EM visit Add On G2211 Diagnoses Primary hypertension I10 Hypertension type: primary hypertension Complicated grief F43.21 Additional Codes LAKESHA-7 Assessment Billing - LAKESHA-7 Assessment Tool: LAKESHA-7 Assessment [id number] ([id number])
[2023-11-21 08:25] VITALS: BP 132/72; PULSE 52; RESP 14; TEMP 36.7; O2SAT 96; BMI 30.7
== END 2023-11-21 09:30 | disposition home or self-care (01) ==
PROVIDERS: PCP Nurse Practitioner Family; Visit Provider Nurse Practitioner Family
DX: I10 Essential (primary) hypertension (principal); F43.21 Adjustment disorder with depressed mood

== ENCOUNTER → 2023-11-21 08:22 | Outpatient (BNVA) | payer OTHER, SELFPAY | PROVIDERS: PCP Nurse Practitioner Family; Visit Provider Nurse Practitioner Family | DX: I10 Essential (primary) hypertension (principal); F43.21 Adjustment disorder with depressed mood; Z79.899 Other long term (current) drug therapy | CPT/HCPCS: 96127 ==

== ENCOUNTER 2023-12-12 10:06 | Outpatient (REF) | payer OTHER, SELFPAY | END 2023-12-12 10:07 | disposition home or self-care (01) | LOC: HO.BBR 10:06 | PROVIDERS: Visit Provider Internal Medicine Gastroenterology | DX: Z13.89 Encounter for screening for other disorder (principal) ==

== ENCOUNTER 2024-04-09 08:56 | Outpatient (AMB) | payer OTHER, SELFPAY ==
--- NOTE | 2024-04-09 09:08 | A.OFFPC_ITS ---
Vital Signs 04/09/24 09:12 Height 6 ft 1 in Weight 232 lb 6 oz BMI 30.7 BP 128/76 Blood Pressure Location Rt brachial Position Sitting Respiration 16 Pulse 59 Pulse Source Pulse Oximeter Temp 97.6 F Temp Source Oral Pulse Oximetry (%) 98 Oxygen Delivery Method Room Air Intake Visit Reasons: 3 mos HTN bhupendra 03/05 Intake Note: patient here for 3 month follow up on blood pressure Assistant Statistician Required: No Allergies No Known Allergies Allergy (Verified 04/09/24 09:31) Medication List - Last Reconciled 04/09/24 by Christiane Altman CNP lisinopril 40 mg PO DAILY 30 days naproxen 500 mg PO BID PRN pantoprazole 40 mg PO DAILY Tobacco use date assessed: 04/09/24 Dental Screening Dental Screen Date: 04/09/24 Did you have a dental visit in the last 12 months?: Yes Did you have a dental problem in the last 6 months where you did not have access to dental care?: No Was dental information given to patient?: Patient has dentist HPI HPI Comments History of Present Illness Details 58-year-old male presents for hypertensi on follow-up. He admits to taking lisinopril 40 mg daily without adverse reactions. He has been maintaining a healthy lifestyle, including low-sodium diet. He offers no complaints and denies acute symptoms at this time. [facility] Medical History Migraine GERD (gastroesophageal reflux disease) Body mass index (BMI) of 40.0 to 44.9 in adult Morbid obesity due to excess calories Neoplasm of uncertain behavior of face Male erectile dysfunction, unspecified Bilateral hearing loss Colon cancer Hemochromatosis Hemochromatosis Erectile dysfunction Morbid obesity due to excess calories Family history of colon cancer in father Adult BMI 40.0-44.9 kg/sq m Male erectile dysfunction, unspecified Hearing screen following failed hearing test Hemochromatosis Neoplasm of skin of face Sessile colonic polyp Surgical History H/O endoscopy History of removal of skin mole History of colonoscopy with polypectomy History of removal of skin mole History of colonoscopy Family History Father Colon cancer Mother History of mitral valve disorder Father Colon cancer Mother Kidney failure, acute Brother Myocardial infarction Sister Skin cancer Father Colon cancer Mother Mitral valve disease Kidney failure Brother Diabetes type 2, controlled Social History Household Members: None Both parents involved: No Caregiver staying overnight: No Housing: House Are you a primary acute care assistant to a significant other at home: No 75 years or older and lives alone: No Alcohol intake: current Alcohol intake frequency: holidays/special occasions o nly Patient Tobacco Use Status: Former Tobacco user Tobacco use type: Smokeless Tobacco e-Cigarette/Vaping Use: Former Use (Flavourly) Second Hand Smoke Exposure: Yes Substance Use Type: Marijuana service: No Current occupational status: employed Current occupation: [employer] Current occupational exposures/hazards: No Sexual orientation: Unable to collect Gender identity: Unable to collect Cognitive needs: No Hearing needs: Yes Vision needs: No Questionnaire PHQ-9 Over the last 2 weeks, how often have you been bothered by any of the following problems? 1. Little interest or pleasure in doing things: not at all 2. Feeling down, depressed, or hopeless: not at all 3. Trouble falling or staying asleep, or sleeping too much: not at all 4. Feeling tired or having little energy: not at all 5. Poor appetite or overeating: not at all 6. Feeling bad about yourself - or that you are a failure or have let yourself or your family down: not at all 7. Trouble concentrating on things, such as reading the newspaper or watching television: not at all 8. Moving or speaking so slowly that other people could have noticed. Or the opposite - being so fidgety or restless that you have been moving around a lot more than usual: not at all 9. Thoughts that you would be better off or of hurting yourself in some way: not at all Total score: 0 Depression Screening Interpretation: Negative Depression Screening Done: Yes Source: Developed by Drs. Brandon Win, Chirstine Douglas, Alfonzo Brooks and colleagues, with an educational shira from [employer]. Thrive Questionnaire Date Thrive assessed: 03/25/24 I am a: Patient What is your living situation today?: I have a steady place to live Within the past 12 months, did the food you bought not last and you didn't have the money to get more?: Never true Within the past 12 months, did you worry whether your food would run out before you got money to buy more?: Never true Do you have trouble paying for medicines?: No Do you have trouble getting transportation to medical appointments?: No Do you have trouble paying your heating and electricity bill?: No Do you have trouble taking care of your child, family member or friend?: No Do you have trouble with day-to-day activities such as bathing, preparing meals, shopping, managing finances, etc.?: No Are you currently unemployed and looking for a job?: No Are you interested in more education?: No Please select the resources that you would like help with: None Currently or been in a relationship where the following occur: No concerns reported THRIVE Score: 0 LAKESHA-7 AMB Questionnaire LAKESHA-7 Date LAKESHA - 7 assessed: 11/21/23 Source: Developed by Drs. Brandon Win, Christine Douglas, Alfonzo Brooks and colleagues, with an educational shira from [employer]. Review of Systems Const Details: Const Denies chills, Denies fatigue, Denies fever(s), Denies headache(s) and Denies weakness ENT Denies dizziness and Denies headache(s) Card Denies chest pain, Denies lightheadedness, Denies dyspnea and Denies other (Palpitations) Resp Denies cough, Denies dyspnea, Denies wheezing and Denies other ( shortness of breath) GI Denies abdominal pain, Denies melena, Denies hematochezia, Denies change in bowel habits, Denies dyspepsia and Denies nausea Denies hematuria and Denies dysuria Musc Denies abnormal gait, Denies myalgias, Denies arthralgias, Denies numbness and Denies tingling Skin/Breast Denies rash, Denies unusual bruising and Denies wounds Neuro Denies abnormal gait, Denies dizziness, Denies headache(s), Denies memory loss, Denies numbness, Denies Sensory deficit (Neuro), Denies tingling and Denies weakness Psych Denies anxiety, Denies depression, Denies memory loss Endo Denies cold intolerance, Denies fatigue, Denies heat intolerance, Denies polydipsia and Denies polyuria Aller/Immun Denies wheezing Physical exam (Primary Care) Vital Signs: Last Vital Signs Temp 97.6 F 04/09/24 09:12 Pulse 59 04/09/24 09:12 Resp 16 04/09/24 09:12 BP 128/76 04/09/24 09:12 Pulse Ox 98 04/09/24 09:12 Oxygen Delivery Method Room Air 04/09/24 09:12 BMI result Body Mass Index 30.7 Tobacco/Smoking Status: Tobacco use Status Tobacco use date assessed 04/09/24 04/09/24 09:16 Patient Tobacco Use Status Former Tobacco user 04/09/24 09:10 Tobacco use type Smokeless Tobacco 04/09/24 09:10 e-Cigarette/Vaping Use Former Use (Flavourly) 04/09/24 09:10 PHQ-9: PHQ-9 Score PHQ-9: Total score 0 04/09/24 09:10 Depression Screening Interpretation: Negative Thrive Assessment: Date of Thrive Assessment Date Thrive assessed 03/25/24 04/09/24 09:10 Currently or been in a relationship where the following occur: No concerns reported Const Other: General: no acute distress and well developed Nutritional Appearance: well nourished Orientation/consciousness: patient oriented x3 HENMT Head: Yes normocephalic and Yes atraumatic Eyes General: appearance normal, both eyes and all related structures Pupils: Equal, round and reactive pupils present EOM: EOMs intact bilaterally Resp Effort & Inspection: normal respiratory effort Auscultation: clear to auscultation bilaterally Cardio Rate: regular rate Rhythm: regular rhythm Heart sounds: S1 normal heart sound present, S2 normal heart sound present, no gallops, no murmurs and no rubs GI Palpation (GI): No Abdominal aortic bruit present, Soft to palpation, nontender, No hepatosplenomegaly present and No Rebound tenderness present Auscultation: normal bowel sounds General: Yes no CVA tenderness Back/Spine/Pelvis Back: no CVA tenderness Cervical Spine: cervical ROM normal and No Cervical spine tenderness Thoracic/Lumbar Spine: thoraco-lumbar ROM normal, No pain with thoraco-lumbar ROM, No thoracic spinal tenderness and No lumbar spinal tenderness Extrem General: Yes normal to inspection, No edema and No calf tenderness Skin General: warm and dry. Normal skin color. Normal skin turgor Neuro General: patient oriented x3, gait normal and no focal neuro deficit Cranial nerves: Yes Equal, round and reactive pupils present Cognition (Neuro): normal cognition Gait exam (Neuro): Normal gait present Sensory Exam: No Sensory deficit (Neuro) Psych Appearance: grossly normal Affect: normal affect Attitude: cooperative Thought process: Normal thought process present Coding Level of Care Code Est Pt Level 3 (05833) Diagnoses Primary hypertension I10 Hypertension type: primary hypertension Laboratory tests ordered as part of a complete physical exam (CPE) Z00. Assessment & Plan Assessment & Plan (1) Hypertension: Code(s): I10 - Essential (primary) hypertension Category: Medical Qualifiers: Hypertension type: primary hypertension Qualified Code(s): I10 - Essential (primary) hypertension Plan: Blood pressure is 120/76, within goal of less than 140/90. Continue current treatment regimen. Perform lab working follow-up for an extended physical exam in a month. Return sooner with symptoms or concerns. Verbalized understanding and agreed with treatment plan. (2) Laboratory tests ordered as part of a complete physical exam (CPE): Code(s): Z00.00 - Encounter for general adult medical examination without abnormal findings Category: Medical Plan: Fasting labs ordered as part of a complete physical exam. Advised to fast for at least 10 hours before getting labs drawn. May drink water Verbalized understanding and agreed with treatment plan. Orders: Orders UA CC w/rflx Micro + Cult Today Z00.00 - Encounter for general adult medical examination without abnormal findings Microalbumin, Random (w Creat) Today Z00.00 - Encounter for general adult medical examination without abnormal findings Complete Blood Count Auto Diff Today Z00.00 - Encounter for general adult medical examination without abnormal findings Comprehensive [place]. Panel Fast Today Z00.00 - Encounter for general adult medical examination without abnormal findings Lipid Panel Today Z00.00 - Encounter for general adult medical examination without abnormal findings TSH reflex Free T4 Today Z00.00 - Encounter for general adult medical examination without abnormal findings PSA, Ultra Sensitive Today Z00.00 - Encounter for general adult medical examination without abnormal findings
[2024-04-09 09:12] VITALS: BP 128/76; PULSE 59; RESP 16; TEMP 36.4; O2SAT 98; BMI 30.7
== END 2024-04-09 09:40 | disposition home or self-care (01) ==
PROVIDERS: PCP Nurse Practitioner Family; Visit Provider Nurse Practitioner Family
DX: I10 Essential (primary) hypertension (principal); Z00.00 Encounter for general adult medical examination without abnormal findings

== ENCOUNTER → 2024-04-09 08:56 | Outpatient (BNVA) | payer OTHER, SELFPAY | PROVIDERS: PCP Nurse Practitioner Family; Visit Provider Nurse Practitioner Family ==

== ENCOUNTER 2024-04-18 09:51 | Outpatient (REF) | payer OTHER, SELFPAY | END 2024-04-18 09:52 | disposition home or self-care (01) | LOC: HO.BBR 09:51 | PROVIDERS: PCP Nurse Practitioner Family; Visit Provider Internal Medicine Gastroenterology | DX: Z13.89 Encounter for screening for other disorder (principal) ==

== ENCOUNTER 2024-05-06 07:06 | Outpatient (REF) | payer OTHER, SELFPAY ==
[2024-05-06 07:19] LABS: MANUAL DIFF FLAG NO
[2024-05-06 07:49] LABS: Basophils Absolute Auto 0.1 X10*3/uL (0.0-0.2); Basophils Percent Auto 0.9 % (0-2); Eosinophils Absolute Auto 0.2 X10*3/uL (0.0-0.4); Eosinophils Percent Auto 3.8 % (0-4); Hematocrit 35.7 % (42.0-52.0); Hemoglobin 11.5 g/dl (14.0-18.0); Imm Gran Abs Auto 0.03 X10*3/uL (0.00-0.03); Imm Gran Pct Auto 0.6 % (0.0-0.4); Lymphocytes Absolute Auto 1.4 X10*3/uL (1.2-4.9); Lymphocytes Percent Auto 27.3 % (20-40); Mean Corpuscular HGB Conc 32.2 g/dl (31.0-36.0); Mean Corpuscular Hemoglobin 24.6 pg (27.0-33.0); Mean Corpuscular Volume 76.3 fL (80.0-98.0); Monocytes Absolute Auto 0.5 X10*3/uL (0.1-1.2); Monocytes Percent Auto 10.1 % (2-11); Neutrophils Percent Auto 57.3 % (45-73); Platelet Count 248 X10*3/uL (160-400); Red Blood Count 4.68 X10*6/uL (4.60-5.80); Red Cell Distribution Width 15.9 % (11.0-16.0); White Blood Count 5.3 X10*3/uL (4.8-10.8)
[2024-05-06 08:06] LABS: Appearance Urine Clear; Color Urine Yellow; Glucose Urine UA Negative (Negative); Leukocyte Esterase Urine Negative (Negative); Nitrite Urine Negative (Negative); Specific Gravity - Urine >= 1.030 (1.005-1.025); Urine Blood Negative (Negative); Urine Ketones Trace mg/dL (Negative); Urine Protein Negative (Neg-Trace)
[2024-05-06 09:48] LABS: Creatinine Urine 331.89 mg/dL; Microalbum/Creatinine Ratio Ur 3.9 ug/mg cr (<30)
[2024-05-06 10:02] LABS: Alanine Aminotransferase 19 U/L (0-40); Albumin Level 4.3 g/dL (3.5-5.0); Alkaline Phosphatase 57 U/L (39-117); Anion Gap 12 (12-20); Aspartate Amino Transferase 24 U/L (5-37); Bilirubin Total 0.5 mg/dL (0.0-1.0); Blood Urea Nitrogen 16 mg/dL (9-16); Calcium 8.8 mg/dL (8.4-10.2); Carbon Dioxide 24 mmol/L (22-29); Chloride 109 mmol/L (96-108); Cholesterol 144 mg/dL (<200); Estimated Glomerular Filt Rate > 60; Glucose Fasting 89 mg/dL (60-99); HDL Cholesterol 39 mg/dL (>40); LDL Cholesterol Calculated 80 mg/dL (<100); Sodium 141 mmol/L (135-145); TSH reflex Free T4 1.83 uIU/mL (0.32-4.0); Triglycerides 125 mg/dL (<150)
[2024-05-10 20:59] LABS: PSA, Ultra Sensitive 0.32 ng/mL
== END 2024-05-06 07:07 | disposition home or self-care (01) ==
LOC: HO.LAB 07:06
PROVIDERS: PCP Nurse Practitioner Family; Visit Provider Nurse Practitioner Family
DX: Z00.00 Encounter for general adult medical examination without abnormal findings (principal); Z12.5 Encounter for screening for malignant neoplasm of prostate
CPT/HCPCS: 36415; 80053; 80061; 81003; 82043; 82570; 84153; 84443; 85025

== ENCOUNTER 2024-05-09 07:52 | Outpatient (AMB) | payer OTHER, SELFPAY ==
--- NOTE | 2024-05-09 07:54 | MHC.PC.OV ---
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 Allergies No Known Allergies Allergy (Verified 05/09/24 08:10) Medication List - Last Reconciled 05/09/24 by Christiane Altman CNP lisinopril 40 mg PO DAILY 30 days naproxen 500 mg PO BID PRN pantoprazole 40 mg PO DAILY Tobacco use date assessed: 05/09/24 Dental Screening Dental Screen Date: 05/09/24 Did you have a dental visit in the last 12 months?: Yes Did you have a dental problem in the last 6 months where you did not have access to dental care?: No Was dental information given to patient?: Patient has dentist HPI HPI Comments History of Present Illness Details 58-year-old male presents for an extended physical exam. He admits to taking his medications as prescribed without adverse reactions. Acute issue(s) - Hemochromatosis: He is followed by [facility] and [facility] doing monthly phlebotomy - Hypertension: He is on lisinopril 40 mg daily. - GERD: He is on pantoprazole 40 mg daily. - Sleep disturbance: He has difficulty maintaining sleep, sleeps an average of 8 hours nightly. He attributes his poor sleep to not having his in bed with him and awakened by his dog. His . Past Medical History - Hypertension, hemochromatosis, bilaterally hearing loss, OA bilat hip, GERD, Talbert's esophagus, and erectile dysfunction Social History - Former smoker, quit 31 years ago. History of vaping. Drinks 2 beers or 1 glass of wine monthly. He has difficulty maintaining sleep, sleeps an average of 8 hours nightly - Has been making healthy dietary choices. Exercises routinely. Generally sleep well Health maintenance - Last eye exam was 3 years ago ago. Referred to Ophthalmology for routine eye care - Last dental visit was yesterday - Last tetanus vaccine was more than 10 years ago; received Tdap vaccine today - He is unsure of shingles vaccine status. He will review his immunization record and inform his PCP - He has not been vaccinated for pneumonia. Encouraged to get vaccinated for pneumonia. He may get the vaccine from the local pharmacy - Has not been vaccinated for the flu this season; declines vaccination - Last colonoscopy was in 2022: Benign polyps. He will sign a release for his PCP to obtain his colonoscopy record [facility]LY [facility], [facility] Medical History Migraine GERD (gastroesophageal reflux disease) Body mass index (BMI) of 40.0 to 44.9 in adult Morbid obesity due to excess calories Neoplasm of uncertain behavior of face Male erectile dysfunction, unspecified Bilateral hearing loss Colon cancer Hemochromatosis Hemochromatosis Erectile dysfunction Morbid obesity due to excess calories Family history of colon cancer in father Adult BMI 40.0-44.9 kg/sq m Male erectile dysfunction, unspecified Hearing screen following failed hearing test Hemochromatosis Neoplasm of skin of face Sessile colonic polyp Surgical History H/O endoscopy History of removal of skin mole History of colonoscopy with polypectomy History of removal of skin mole History of colonoscopy Family History Father Colon cancer Mother History of mitral valve disorder Father Colon cancer Mother Kidney failure, acute Brother Myocardial infarction Sister Skin cancer Father Colon cancer Mother Mitral valve disease Kidney failure Brother Diabetes type 2, controlled Social History Household Members: None Both parents involved: No Caregiver staying overnight: No Housing: House Are you a primary post anesthesia care unit nurse to a significant other at home: No 75 years or older and lives alone: No Alcohol intake: current Alcohol intake frequency: holidays/special occasions only Patient Tobacco Use Status: Former Tobacco user Tobacco use type: Smokeless Tobacco e-Cigarette/Vaping Use: Former Use (palmer) Second Hand Smoke Exposure: Yes Substance Use Type: Marijuana service: No Current occupational status: employed Current occupation: [email or web address] Current occupational exposures/hazards: No Sexual orientation: Unable to collect Gender identity: Unable to collect Cognitive needs: No Hearing needs: Yes Vision needs: No Questionnaire PHQ-9 Over the last 2 weeks, how often have you been bothered by any of the following problems? 1. Little interest or pleasure in doing things: not at all 2. Feeling down, depressed, or hopeless: not at all 3. Trouble falling or staying asleep, or sleeping too much: more than half the days 4. Feeling tired or having little energy: several days 5. Poor appetite or overeating: not at all 6. Feeling bad about yourself - or that you are a failure or have let yourself or your family down: not at all 7. Trouble concentrating on things, such as reading the newspaper or watching television: not at all 8. Moving or speaking so slowly that other people could have noticed. Or the opposite - being so fidgety or restless that you have been moving around a lot more than usual: not at all 9. Thoughts that you would be better off or of hurting yourself in some way: not at all Total score: 3 Depression Screening Interpretation: Negative Depression Screening Done: Yes 91714 - PHQ-9 Billing: Yes Source: Developed by Drs. Brandon Win, Christine Douglas, Alfonzo Brooks and colleagues, with an educational shira from [employer]. Thrive Questionnaire Date Thrive assessed: 05/09/24 I am a: Patient What is your living situation today?: I have a steady place to live Within the past 12 months, did the food you bought not last and you didn't have the money to get more?: Never true Within the past 12 months, did you worry whether your food would run out before you got money to buy more?: Never true Do you have trouble paying for medicines?: No Do you have trouble getting transportation to medical appointments?: No Do you have trouble paying your heating and electricity bill?: No Do you have trouble taking care of your child, family member or friend?: No Do you have trouble with day-to-day activities such as bathing, preparing meals, shopping, managing finances, etc.?: No Are you currently unemployed and looking for a job?: No Are you interested in more education?: No Please select the resources that you would like help with: None Currently or been in a relationship where the following occur: No concerns reported THRIVE Score: 0 AUDIT C Alcohol Use Questionnaire (AUDIT-C) 1. How often do you have a drink containing alcohol?: 2-4 times a month 2. How many drinks containing alcohol do you have on a typical day when you are drinking?: 1 or 2 3. How often do you have six or more drinks on one occasion?: Never Total Score: 2 Score Reviewed/Action Taken: Yes LAKESHA-7 AMB Questionnaire LAKESHA-7 Date LAKESHA - 7 assessed: 05/09/24 Feeling nervous, anxious, or on edge: 0 = Not at all Not being able to stop or control worryin = Not at all Worrying too much about different things: 0 = Not at all Trouble relaxin = Not at all Being so restless that it is hard to sit still: 0 = Not at all Becoming easily annoyed or irritable: 0 = Not at all Feeling afraid as if something awful might happen: 0 = Not at all Total LAKESHA-7 score (0-4 normal; 5-9 mild; 10-14 moderate; 15-21 severe): 0 Source: Developed by Drs. Brandon Win, Christine Douglas, Alfonzo Brooks and colleagues, with an educational shira from [employer]. LAKESHA-7 Assessment Billing LAKESHA-7 Assessment Tool: LAKESHA-7 Assessment 89779 Review of Systems Const Details: Denies chills, Denies fatigue, Denies fever(s), Denies headache(s) and Denies weakness HEENT Denies change in vision, Denies dizziness, Denies headache(s), Denies hearing loss, Denies nasal congestion, Denies sinus pain, Denies sinus pressure and Denies sore throat Card Denies chest pain, Denies lightheadedness, Denies dyspnea and Denies other (palpitations) Resp Denies cough, Denies dyspnea and Denies wheezing GI Denies abdominal pain, Denies melena, Denies hematochezia, Denies change in bowel habits, Denies dyspepsia and Denies nausea Denies hematuria and Denies dysuria Musc Denies abnormal gait, Denies myalgias, Denies arthralgias, Denies numbness and Denies tingling Skin/Breast Denies rash, Denies unusual bruising and Denies wounds Neuro Denies abnormal gait, Denies dizziness, Denies headache(s), Denies memory loss, Denies numbness, Denies Sensory deficit (Neuro), Denies tingling and Denies weakness Psych Denies anxiety, Denies depression and Denies memory loss Endo Denies cold intolerance, Denies fatigue, Denies heat intolerance, Denies polydipsia and Denies polyuria Marshall/Lymph Denies easy bleeding and Denies easy bruising Aller/Immun Denies wheezing Physical exam (Primary Care) Vital Signs: Last Vital Signs Temp 97.4 F 05/09/24 08:04 Pulse 53 05/09/24 08:04 Resp 16 05/09/24 08:04 BP 123/66 05/09/24 08:04 Pulse Ox 100 05/09/24 08:04 Oxygen Delivery Method Room Air 05/09/24 08:04 BMI result Body Mass Index 29.9 Tobacco/Smoking Status: Tobacco use Status Tobacco use date assessed 05/09/24 05/09/24 08:09 Patient Tobacco Use Status Former Tobacco user 05/09/24 07:54 Tobacco use type Smokeless Tobacco 05/09/24 07:54 e-Cigarette/Vaping Use Former Use ([facility]) 05/09/24 07:54 PHQ-9: PHQ-9 Score PHQ-9: Total score 3 05/09/24 08:36 Depression Screening Interpretation: Negative Thrive Assessment: Date of Thrive Assessment Date Thrive assessed 05/09/24 05/09/24 08:09 Currently or been in a relationship where the following occur: No concerns reported Const Other: General: no acute distress, well developed, alert and awake Nutritional Appearance: well nourished Orientation/consciousness: patient oriented x3 HENMT Head: Yes normocephalic and Yes atraumatic Ears: hearing grossly normal bilaterally and TM's normal bilaterally General nose exam: Normal external nose present and Normal nares present Mouth: Normal oral and palatal mucosa present and moist mucous membranes Teeth and gingiva: dentition normal Throat: Yes oropharynx normal Eyes Pupils: Equal, round and reactive pupils present and Pupil accommodation reflex normal EOM: EOMs intact bilaterally Neck Neck: Yes normal visual inspection, Yes no lymphadenopathy and Yes trachea midline Thyroid: Thyroid normal Carotids: no bruits Lymphatic: no lymphadenopathy noted Chest Chest palpation & inspection: normal inspection of the chest Resp Effort & Inspection: normal respiratory effort Auscultation: clear to auscultation bilaterally Cardio Rate: regular rate Rhythm: regular rhythm Heart sounds: S1 normal heart sound present, S2 normal heart sound present, no gallops, no murmurs and no rubs Bruits: no abdominal aortic bruits and no carotid bruits GI Palpation (GI): No Abdominal aortic bruit present, Soft to palpation, nontender, No hepatosplenomegaly present and No Rebound tenderness present Auscultation: normal bowel sounds General: Yes no CVA tenderness Back/Spine/Pelvis Back: no CVA tenderness Cervical Spine: cervical ROM normal and No Cervical spine tenderness Thoracic/Lumbar Spine: thoraco-lumbar ROM normal, No pain with thoraco-lumbar ROM, No thoracic spinal tenderness and No lumbar spinal tenderness Skin General: warm and dry. Normal skin color. Normal skin turgor Lesions: no lesions Rashes: no rashes Trauma: no lacerations or abrasions Wounds: no wounds Nails: normal Neuro General: patient oriented x3, gait normal and CN's II-XI intact bilaterally Cranial nerves: Yes Equal, round and reactive pupils present Cognition (Neuro): normal cognition Gait exam (Neuro): Normal gait present Motor exam (neuro): 5/5 motor strength present throughout Sensory Exam: No Sensory deficit (Neuro) Deep tendon reflexes (DTR's): Right patellar reflex intensity grade: 2+ and Left patellar reflex intensity grade: 2+ Extrem General: Yes normal to inspection, No edema and No calf tenderness Psych Appearance: grossly normal Affect: normal affect Attitude: cooperative Thought process: Normal thought process present Immunizations Boostrix Tdap 2.5 Lf unit-8 mcg-5 Lf/0.5 mL intramuscular syringe Performing Provider: Christiane Altman CNP Performing Location: [facility] Administered by: Joel Barker RN on 05/09/24 08:44 Dose Route Admin Location Dispensed Lot Number Expiration Date NDC Dining Room Hostess 0.5 mL IM Left Deltoid 0.5 mL [id number] 06/08/26 75650-267-80 [employer] VIS Given Date VIS Provided VIS Publication Date 05/09/24 Single Vaccine 20 Eligibility Eligibility Date Funding Source Not [facility] Eligible 05/09/24 Private Coding Level of Care Code Est Pt Prev Care 40-64y([id number]) Diagnoses Annual physical exam Z00.00 Primary hypertension I10 Hypertension type: primary hypertension Microcytic anemia D50.9 Low HDL (under 40) E78.6 Eye exam, routine Z01.00 Vaccine counseling Z71.85 Sleep disturbance G47.9 Additional Codes LAKESHA-7 Assessment Billing - LAKESHA-7 Assessment Tool: LAKESHA-7 Assessment 34038 ([id number]) PHQ-9 - 59765 - PHQ-9 Billing: Yes ([id number]) Assessment & Plan Assessment & Plan (1) Annual physical exam: Code(s): Z00.00 - Encounter for general adult medical examination without abnormal findings Category: Medical Plan: Normal physical exam of a 58-year-old male. No significant functional limitations noted. Follow-u in 3 months for hypertension or sooner with symptoms or concerns. Verbalized understanding and agreed with treatment plan. (2) Hypertension: Code(s): I10 - Essential (primary) hypertension Category: Medical Qualifiers: Hypertension type: primary hypertension Qualified Code(s): I10 - Essential (primary) hypertension Plan: Resting blood pressure is 123/66, within goal of less than 140/90. Continue current treatment regimen. Follow-up in 3 months. Verbalized understanding and agreed with treatment plan. (3) Microcytic anemia: Code(s): D50.9 - Iron deficiency anemia, unspecified Category: Medical Plan: Recent H&H is slightly low, 11.5/35.7, MCV is low, 76.3. Likely results of monthly phlebotomy due to hemochromatosis. Will check iron profile, ferritin, vitamin B12 and folate levels and make changes as needed. Follow-up with Gastroenterology as planned. Return with symptoms or concerns. Verbalized understanding and agreed with treatment plan. (4) Low HDL (under 40): Code(s): E78.6 - Lipoprotein deficiency Category: Medical Plan: Recent HDL level is slightly low, 39. Triglycerides, total cholesterol, and LDL levels are normal. Advised to limit foods high in saturated fat and avoid foods high in trans fat. Routine exercise encouraged. Will monitor lipid panel levels periodically. Verbalized understanding and agreed with treatment plan. (5) Eye exam, routine: Code(s): Z01.00 - Encounter for examination of eyes and vision without abnormal findings Category: Medical Plan: Last eye exam was 3 years ago ago. Referred to Ophthalmology for routine eye care. (6) Vaccine counseling: Code(s): Z71.85 - Encounter for immunization safety counseling Category: Medical Plan: He has not been vaccinated for pneumonia. Encouraged to get vaccinated for pneumonia. He may get the vaccine from the local pharmacy. (7) Sleep disturbance: Code(s): G47.9 - Sleep disorder, unspecified Category: Medical Plan: He has difficulty maintaining sleep. He sleeps an average of 8 hours nightly. He has been sleeping poorly since his . He is also awakened by his dog. Sleep hygiene instructed and encouraged. Routine exercise encouraged. Follow-up with worsening or new symptoms. Verbalized understanding and agreed with the plan. Orders: Orders TDaP Immunization Today Z23 - Encounter for immunization IRON PROFILE Today D50.9 - Iron deficiency anemia, unspecified Ferritin Today D50.9 - Iron deficiency anemia, unspecified Vitamin B12 and Folate Today D50.9 - Iron deficiency anemia, unspecified Referrals Ophthalmology Referral Z01.00 - Encounter for examination of eyes and vision without abnormal findings
[2024-05-09 08:04] VITALS: BP 123/66; PULSE 53; RESP 16; TEMP 36.3; O2SAT 100; BMI 29.9
== END 2024-05-09 08:43 | disposition home or self-care (01) ==
LOC: HO.HMCFM 07:53
PROVIDERS: PCP Nurse Practitioner Family; Visit Provider Nurse Practitioner Family
DX: Z00.00 Encounter for general adult medical examination without abnormal findings (principal); I10 Essential (primary) hypertension; D50.9 Iron deficiency anemia, unspecified; E78.6 Lipoprotein deficiency; Z71.85 Encounter for immunization safety counseling; G47.9 Sleep disorder, unspecified; Z23 Encounter for immunization

== ENCOUNTER → 2024-05-09 07:52 | Outpatient (BNVA) | payer OTHER, SELFPAY | PROVIDERS: PCP Nurse Practitioner Family; Visit Provider Nurse Practitioner Family | DX: Z00.00 Encounter for general adult medical examination without abnormal findings (principal); Z23 Encounter for immunization; I10 Essential (primary) hypertension; D50.9 Iron deficiency anemia, unspecified; E78.6 Lipoprotein deficiency; G47.9 Sleep disorder, unspecified; Z71.85 Encounter for immunization safety counseling | CPT/HCPCS: 90471; 90715; 96127 ==

== ENCOUNTER 2024-05-09 09:11 | Outpatient (REF) | payer OTHER, SELFPAY ==
[2024-05-09 12:22] LABS: Iron 19 mcg/dL (45-160); Percent Iron Saturation 6 % (15-50); Total Iron Binding Capacity 307 mcg/dL (228-428); Unsaturated Iron Binding 288 ug/dL
[2024-05-09 12:35] LABS: Ferritin 9 ng/mL (20-250)
[2024-05-09 12:45] LABS: Vitamin B12 426 pg/mL (200-900)
[2024-05-09 13:33] LABS: Folate 7.8 ng/mL (> or = 4.0)
== END 2024-05-09 09:12 | disposition home or self-care (01) ==
LOC: HO.WFDLDS 09:11
PROVIDERS: Visit Provider Nurse Practitioner Family
DX: D50.9 Iron deficiency anemia, unspecified (principal)
CPT/HCPCS: 36415; 82607; 82728; 82746; 83540

== ENCOUNTER 2024-09-10 08:55 | Outpatient (AMB) | payer OTHER, SELFPAY ==
--- NOTE | 2024-09-10 09:07 | MHC.PC.OV ---
Vital Signs 09/10/24 09:10 Height 6 ft 1 in Weight 230 lb 4 oz BMI 30.4 BP 134/68 Blood Pressure Location Lt brachial Position Sitting Respiration 16 Pulse 59 Pulse Source Pulse Oximeter Temp 97.6 F Temp Source Oral Pulse Oximetry (%) 100 Oxygen Delivery Method Room Air Intake Visit Reasons: 3 mos HTN Intake Note: patient here for 3 month follow on HTN Family And Consumer Education Teacher Required: No Allergies No Known Allergies Allergy (Verified 09/10/24 09:18) Medication List - Last Reconciled 09/10/24 by Christiane Altman CNP lisinopril 40 mg PO DAILY 30 days naproxen 500 mg PO BID PRN pantoprazole 40 mg PO DAILY Tobacco use date assessed: 09/10/24 Dental Screening Dental Screen Date: 09/10/24 Did you have a dental visit in the last 12 months?: Yes Did you have a dental problem in the last 6 months where you did not have access to dental care?: No Was dental information given to patient?: Patient has dentist HPI HPI Comments History of Present Illness Details 59-year-old male presents for hypertension follow-up. He admits to taking his medications as prescribed without adverse reactions. He notes that he has been making healthy lifestyle changes. No acute symptoms at this time. FORMERLY [facility], [facility] Medical History Migraine GERD (gastroesophageal reflux disease) Body mass index (BMI) of 40.0 to 44.9 in adult Morbid obesity due to excess calories Neoplasm of uncertain behavior of face Male erectile dysfunction, unspecified Bilateral hearing loss Colon cancer Hemochromatosis Hemochromatosis Erectile dysfunction Morbid obesity due to excess calories Family history of colon cancer in father Adult BMI 40.0-44.9 kg/sq m Male erectile dysfunction, unspecified Hearing screen following failed hearing test Hemochromatosis Neoplasm of skin of face Sessile colonic polyp Surgical History H/O endoscopy History of removal of skin mole History of colonoscopy with polypectomy History of removal of skin mole History of colonoscopy Family History Father Colon cancer Mother History of mitral valve disorder Father Colon cancer Mother Kidney failure, acute Brother Myocardial infarction Sister Skin cancer Father Colon cancer Mother Mitral valve disease Kidney failure Brother Diabetes type 2, controlled Social History Household Members: None Both parents involved: No Caregiver staying overnight: No Housing: House Are you a primary critical care unit nurse to a significant other at home: No 75 years or older and lives alone: No Alcohol intake: current Alcohol intake frequency: holidays/special occasions only Patient Tobacco Use Status: Former Tobacco user Tobacco use type: Smokeless Tobacco e-Cigarette/[facility] Smoke Exposure: Yes Substance Use Type: Marijuana service: No Current occupational status: employed Current occupation: [employer] Current occupational exposures/hazards: No Sexual orientation: Unable to collect Gender identity: Unable to collect Cognitive needs: No Hearing needs: Yes Vision needs: No Questionnaire Thrive Questionnaire Date Thrive assessed: 03/25/24 I am a: Patient What is your living situation today?: I have a steady place to live Within the past 12 months, did the food you bought not last and you didn't have the money to get more?: Never true Within the past 12 months, did you worry whether your food would run out before you got money to buy more?: Never true Do you have trouble paying for medicines?: No Do you have trouble getting transportation to medical appointments?: No Do you have trouble paying your heating and electricity bill?: No Do you have trouble taking care of your child, family member or friend?: No Do you have trouble with day-to-day activities such as bathing, preparing meals, shopping, managing finances, etc.?: No Are you currently unemployed and looking for a job?: No Are you interested in more education?: No Please select the resources that you would like help with: None Currently or been in a relationship where the following occur: No concerns reported THRIVE Score: 0 LAKESHA-7 AMB Questionnaire LAKESHA-7 Date LAKESHA - 7 assessed: 05/09/24 Source: Developed by Drs. Brandon Win, Christine Douglas, Alfonzo Brooks and colleagues, with an educational shira from [employer] Review of Systems Const Details: Const Denies chills, Denies fatigue, Denies fever(s), Denies headache(s) and Denies weakness ENT Denies dizziness and Denies headache(s) Card Denies chest pain, Denies lightheadedness, Denies dyspnea and Denies other (Palpitations) Resp Denies cough, Denies dyspnea, Denies wheezing and Denies other ( shortness of breath) GI Denies abdominal pain, Denies melena, Denies hematochezia, Denies change in bowel habits, Denies dyspepsia and Denies nausea Denies hematuria and Denies dysuria Musc Denies abnormal gait, Denies myalgias, Denies arthralgias, Denies numbness and Denies tingling Skin/Breast Denies rash, Denies unusual bruising and Denies wounds Neuro Denies abnormal gait, Denies dizziness, Denies headache(s), Denies memory loss, Denies numbness, Denies Sensory deficit (Neuro), Denies tingling and Denies weakness Psych Denies anxiety, Denies depression, Denies memory loss Endo Denies cold intolerance, Denies fatigue, Denies heat intolerance, Denies polydipsia and Denies polyuria Aller/Immun Denies wheezing Physical exam (Primary Care) Vital Signs: Last Vital Signs Temp 97.6 F 09/10/24 09:10 Pulse 59 09/10/24 09:10 Resp 16 09/10/24 09:10 BP 134/68 09/10/24 09:10 Pulse Ox 100 09/10/24 09:10 Oxygen Delivery Method Room Air 09/10/24 09:10 BMI result Body Mass Index 30.4 Tobacco/Smoking Status: Tobacco use Status Tobacco use date assessed 09/10/24 09/10/24 09:13 Patient Tobacco Use Status Former Tobacco user 09/10/24 09:13 Tobacco use type Smokeless Tobacco 09/10/24 09:13 e-Cigarette/Vaping Use Former Use ([facility]) 09/10/24 09:13 Thrive Assessment: Date of Thrive Assessment Date Thrive assessed 03/25/24 09/10/24 09:13 Currently or been in a relationship where the following occur: No concerns reported Const Other: General: no acute distress and well developed Nutritional Appearance: well nourished Orientation/consciousness: patient oriented x3 HENMT Head: Yes normocephalic and Yes atraumatic Eyes General: appearance normal, both eyes and all related structures Pupils: Equal, round and reactive pupils present EOM: EOMs intact bilaterally Resp Effort & Inspection: normal respiratory effort Auscultation: clear to auscultation bilaterally Cardio Rate: regular rate Rhythm: regular rhythm Heart sounds: S1 normal heart sound present, S2 normal heart sound present, no gallops, no murmurs and no rubs GI Palpation (GI): No Abdominal aortic bruit present, Soft to palpation, nontender, No hepatosplenomegaly present and No Rebound tenderness present Auscultation: normal bowel sounds General: Yes no CVA tenderness Back/Spine/Pelvis Back: no CVA tenderness Cervical Spine: cervical ROM normal and No Cervical spine tenderness Thoracic/Lumbar Spine: thoraco-lumbar ROM normal, No pain with thoraco-lumbar ROM, No thoracic spinal tenderness and No lumbar spinal tenderness Extrem General: Yes normal to inspection, No edema and No calf tenderness Skin General: warm and dry. Normal skin color. Normal skin turgor Neuro General: patient oriented x3, gait normal and no focal neuro deficit Cranial nerves: Yes Equal, round and reactive pupils present Cognition (Neuro): normal cognition Gait exam (Neuro): Normal gait present Sensory Exam: No Sensory deficit (Neuro) Psych Appearance: grossly normal Affect: normal affect Attitude: cooperative Thought process: Normal thought process present Coding Level of Care Code Est Pt Level 3 (62882) Diagnoses Primary hypertension I10 Hypertension type: primary hypertension Assessment & Plan Assessment & Plan (1) Hypertension: Code(s): I10 - Essential (primary) hypertension Category: Medical Qualifiers: Hypertension type: primary hypertension Qualified Code(s): I10 - Essential (primary) hypertension Plan: Resting blood pressure is 134/68, within goal of less than 140/90. Continue current treatment regimen. Low-sodium diet encouraged. Follow-up in 3 months or sooner with symptoms or concerns. Verbalized understanding and agreed with the plan.
[2024-09-10 09:10] VITALS: BP 134/68; PULSE 59; RESP 16; TEMP 36.4; O2SAT 100; BMI 30.4
--- OUTSIDE RECORDS SUMMARY | 2024-09-10 09:21 | XMS_ITS | Encounter Summary ---
Author Organization [facility] Address [address] [address] Phone Care Team Providers Care Clinical Fellow Name Role Phone Shukri Bojorquez DO Primary Care Provider [phone] Delores Carranza UNIT CONTROLLER Primary Care Provider Christiane Altman UNIT CONTROLLER Primary Care Provider Daniela vailable Encounter Details Date Type Department Care Team (Latest Contact Info) Description 02/20/2020 Transcribe Orders Virtual Department [address] [place] [address] Melchor Hill MD [email or web address] Liver fibrosis (Primary Dx) Social History Tobacco Use Types Packs/Day Years Used Date Smoking Tobacco: Never Sex and Gender Information Value Date Recorded Sex Assigned at Not on file Legal Sex Male 6:41 PM EST Gender Identity Not on file Sexual Orientation Not on file documented as of this encounter Plan of Treatment Not on file documented as of this encounter Visit Diagnoses Diagnosis Liver fibrosis- Primary Cirrhosis of liver without mention of alcohol documented in this encounter Care Teams Clinical Fellow Relationship Specialty Start Date End Date Shukri Bojorquez DO PCP - General 08/20/13 02/27/22 Delores Carranza NP PCP - General Nurse Practitioner 02/28/22 08/30/23 Christiane Altman NP PCP - General Nurse Practitioner 08/31/23 documented as of this encounter Additional Source Comments The information contained in this document represents components of the legal health record. It is not the complete legal health record.[facility]
== END 2024-09-10 09:28 | disposition home or self-care (01) ==
LOC: HO.HMCFM 08:56
PROVIDERS: PCP Nurse Practitioner Family; Visit Provider Nurse Practitioner Family
DX: I10 Essential (primary) hypertension (principal)

== ENCOUNTER 2024-09-12 09:58 | Outpatient (REF) | payer OTHER, SELFPAY ==
--- OUTSIDE RECORDS SUMMARY | 2024-09-12 10:43 | XMS_ITS | Encounter Summary ---
Author Organization [facility] Address [address] [address] Phone Care Team Providers Care Veterinary Pharmacologist Name Role Phone Shukri Bojorquez DO Primary Care Provider [phone] Delores Carranza FISH LIVER SORTER Primary Care Provider Christiane Altman FISH LIVER SORTER Primary Care Provider Daniela vailable Encounter Details Date Type Department Care Team (Latest Contact Info) Description 02/20/2020 Transcribe Orders Virtual Department [address] [place] [address] Melchor Hill MD [email or web address] Liver fibrosis (Primary Dx) Social [...] alcohol documented in this encounter Care Teams Veterinary Pharmacologist Relationship Specialty Start Date End Date Shukri Bojorquez DO PCP - General 08/20/13 02/27/22 Delores Carranza NP PCP - General Nurse Practitioner 02/28/22 08/30/23 Christiane Altman NP PCP - General Nurse Practitioner 08/31/23 documented as of this encounter Additional Source Comments The information contained in this document represents components of the legal health record. It is not the complete legal health record.[facility]
== END 2024-09-12 09:59 | disposition home or self-care (01) ==
LOC: HO.BBR 09:58
PROVIDERS: PCP Nurse Practitioner Family; Visit Provider Internal Medicine Gastroenterology
DX: Z13.89 Encounter for screening for other disorder (principal)

== ENCOUNTER 2024-12-10 08:51 | Outpatient (REF) | payer OTHER, SELFPAY ==
--- OUTSIDE RECORDS SUMMARY | 2024-12-10 09:17 | XMS_ITS | Clinical Summary ---
Author Organization [facility] Address [address] [facility] [address] [place] [phone] Phone Care Team Providers Care Senior Solutions Workflow Consultant Name Role Phone Christiane Altman COMPRESSION MOLDING MACHINE OPERATOR Primary Care Provider [phone] Allergies No known active allergies Medications lansoprazole (PREVACID) 30 MG capsule Take 30 mg by mouth daily. 03/30/2024 Active lisinopril (PRINIVIL,ZESTRI L) 40 MG tablet Take 1 tablet by mouth every morning. 05/24/2024 Active naproxen (NAPROSYN) 500 MG tablet Take 500 mg by mouth 2 (two) times a day as needed. 03/24/2024 Active Active Problems Problem Noted Date Diagnosed Date Hemochromatosis 12/05/2011 Overview (04/12/2014): Hemochromatosis Cirrhosis of liver 12/05/2011 Overview (04/12/2014): Cirrhosis of liver Family History Medical History Relation Comments Colon cancer Father Relation Status Comments Father Social History Tobacco Use Types Packs/Day Years Used Date Smoking Tobacco: Never Smokeless Tobacco: Never Tobacco Cessation:Counseling Given: Not Answered Alcohol Use Standard Drinks/Week Comments Not Currently 0 (1 standard drink = 0.6 oz pur e alcohol) 5 per month Education Answer Date Recorded Are you interested in more education? Not on rosa isela e 06/26/2022 Are you concerned about learning? Not on file 06/26/2022 No 06/26/2022 No 06/26/2022 Digital Access Answer Date Recorded No 07/17/2022 No 07/17/2022 Reliable internet access at home? Not on file 07/17/2022 Device with a working camera? Not on file Intimate Partner Violence Answer Date R ecorded Are you denied basic needs s uch as food, clothing, or medical care? No 06/04/2024 In the past 12 months have y ou been in a relationship with a person who hurts, threatens, or tries to control you? No 06/04/2024 Are you denied basic needs s uch as food, clothing, or medical care? No 06/04/2024 In the past 12 months have y ou been in a relationship with a person who hurts, threatens, or tries to control you? No 06/04/2024 Sex and Gender Information Value Date Recorded Sex Assigned at Not on file Legal Sex Male 6:41 PM EST Gender Identity Not on file Sexual Orientation Not on file Last Filed Vital Signs Vital Sign Reading Time Taken Comments Blood Pressure 132/98 06/04/2024 10:50 AM EDT Pulse 82 06/04/2024 10:50 AM EDT Temperature 36.2 C (97.2 F) 06/04/2024 10:41 AM EDT Respiratory Rate 16 06/04/2024 10:50 AM EDT Oxygen Saturation 98% 06/04/2024 10:50 AM EDT Inhaled Oxygen Concentration - - Weight 102.1 kg (225 lb) 05/30/2024 12:33 PM EDT Height 185.4 cm (6' 1 ) 05/30/2024 12:33 PM EDT Body Mass Index 29.69 05/30/2024 12:33 PM EDT Plan of Treatment Health Maintenance Due Date Last Done Comments LIPID PANEL 1967 DEPRESSION SCREENING 1979 HEPATITIS C SCREENING 06/05/1985 HIV ONE-TIME SCREENING (18-6 5 YEARS) 06/05/1985 HEPATITIS A VACCINES (1 of 2 - Risk 2-dose series) 06/05/1986 PNEUMOCOCCAL VACCINES (50+ years) (1 of 2 - PCV) 06/05/1986 COLOGUARD 06/05/2012 COLONOSCOPY 06/05/2012 COLORECTAL CANCER SCREENING 06/05/2012 FIT TEST 06/05/2012 FOBT 06/05/2012 SIGMOIDOSCOPY 06/05/2012 VIRTUAL COLONOSCOPY 06/05/2012 RSV VACCINE (1 - Risk 50-74 years 1-dose series) 06/05/2017 ZOSTER VACCINES (1 of 2) 06/05/2017 INFLUENZA VACCINE (#1) 2024 COVID-19 VACCINE (3 - 2024-2 6 season) 2024 02/09/2021, 05/30/2020 CREATININE LEVEL 02/05/2025 02/06/2024, 08/30/2023, 05/20/2010 POTASSIUM LEVEL 02/05/2025 02/06/2024, 08/30/2023, 05/20/2010 SCREENING FOR DIABETES 02/05/2027 02/06/2024 Adult Td,Tdap Booster 05/09/2034 05/09/2024 SMOKING STATUS SCREENING (On ce After 26 Yrs) Completed 06/04/2024 HIB VACCINES Aged Out No longer eligi ble based on patient's age to complete this topic MENINGOCOCCAL VACCINES (ACWY) Aged Out No longer eligible based on patient's age to complete this topic MENINGOCOCCAL VACCINES (B) Aged Out N o longer eligible based on patient's age to complete this topic Medical Devices Not on file Procedures Procedure Name Priority Date/Time Associated Diagnosis Comments COMPREHENSIVE METABOLIC PANEL Routine 02/06/2024 10:57 AM EST Hemochromatosis, unspecified hemochromatosis type from Last 3 Months or Most Recently Relevant to Health Maintenance Results * Comprehensive metabolic panel (02/06/2024 10:57 AM EST) SODIUM 138 133 - 146 mmol/L [facility] POTASSIUM 4.5 3.3 - 5.1 mmol/L [facility] CHLORIDE 103 96 - 108 mmol/L [facility] CO2 25 21 - 35 mmol/L [facility] BUN 14 6 - 19 mg/dL [facility] CREATININE 0.90 0.5 - 1.5 mg/dL [facility] GLUCOSE 94 70 - 99 mg/dL [facility] ALBUMIN 4.7 3.9 - 4.8 g/dL [facility] TOTAL PROTEIN 7.2 6.5 - 8.0 g/dL [facility] CALCIUM 9.4 8.4 - 10.3 mg/dL [facility] ALKALINE PHOSPHATASE 66 39 - 117 U/L [facility] TOTAL BILIRUBIN 0.6 0.0 - 1.2 mg/dL [facility] AST 25 0 - 37 U/L [facility] ALT 14 0 - 40 U/L [facility] GLOBULIN 2.5 1 - 4.8 g/dL [facility] EGFR 100 >59 mL/min/1.7 3m2 [facility] Comment:Estimated glomerular filtration rate calculated using the CKD-EPI refit equation. ANION GAP 15 10 - 20 mmol/L [facility] Blood 02/06/2024 10:5 7 AM EST 02/06/2024 11:03 AM EST us Melchor Escobar MD LAB BLOOD ORDERABLES Final Res ult [facility] [address] [place] [address] from Last 3 Months or Most Recently Relevant to Health Maintenance Insurance [employer] PPO [place] PPO Member Subscriber Plan / Payer (Ef fective 2023-Present) Name:Ronnie Camarillo Relation to Subscriber:Self Name:Ronnie Camarillo Payer ID:[id number] ([facility]) Type:PPO Address: [address] [place] [id number] [employer] PPO Member Subscriber Plan / Payer (Ef fective 2023-Present) Name:Ronnie Camarillo Relation to Subscriber:Self Name:Ronnie Camarillo Payer ID:[id number] ([facility]) Type:PPO Address: [address] [place] [id number] [employer] PPO CIG[employer] PPO [employer] PPO Care Teams Senior Solutions Workflow Consultant Relationship Specialty Start Date End Date Christiane Altman NP [address] [place] [address] [phone] PCP - General Nurse Practitioner 08/31/23 Additional Source Comments The information contained in this document represents components of the legal health record. It is not the complete legal health record.[facility]
--- OUTSIDE RECORDS SUMMARY | 2024-12-10 09:17 | XMS_ITS | Encounter Summary ---
Author Organization [facility] Address [address] [facility] [address] [place] [address] Phone Care Team Providers Care Project Controls Specialist Name Role Phone Delores Carranza TONGSMAN Primary Care Provider Christiane Altman TONGSMAN Primary Care Provider [phone] Encounter Details Date Type Department Care Team (Late st Contact Info) Description 05/24/2022 Procedure Pass [facility] Endoscopy Admitting Dept Virtual Department [address] [place] [address] Social History Tobacco Use Types Packs/Day Years Used Date Smoking Tobacco: Never Smokeless Tobacco: Never Alcohol Use Standard Drinks/Week Comments Yes 1 (1 standard drink = 0.6 oz pur e alcohol) Intimate Partner Violence Answer Date R ecorded Are you denied basic needs s [facility] as food, clothing, or medical care? No 05/24/2022 In the past 12 months have y ou been in a relationship with a person who hurts, threatens, or tries to control you? No 05/24/2022 Are you denied basic needs s [facility] as food, clothing, or medical care? No 05/24/2022 In the past 12 months have y ou been in a relationship with a person who hurts, threatens, or tries to control you? No 05/24/2022 Sex and Gender Information Value Date Recorded Sex Assigned at Not on file Legal Sex Male 6:41 PM EST Gender Identity Not on file Sexual Orientation Not on file documented as of this encounter Plan of Treatment Not on file documented as of this encounter Visit Diagnoses Not on filedocumented in this encounter Care Teams Project Controls Specialist Relationship Specialty Start Date End Date Delores Carranza NP PCP - General Nurse Practitioner 02/28/22 08/30/23 Christiane Altman NP [address] [place] [address] PCP - General Nurse Practitioner 08/31/23 documented as of this encounter Additional Source Comments The information contained in this document represents components of the legal health record. It is not the complete legal health record.[facility]
--- OUTSIDE RECORDS SUMMARY | 2024-12-10 09:17 | XMS_ITS | Encounter Summary ---
Author Organization [facility] Address [address] [facility] [address] [place] [address] Phone Care Team Providers Care Straight Knife Cutter Machine Name Role Phone Shukri Bojorquez Primary Care Provider [phone] Delores Carranza DIGITAL MEDIA SPECIALIST Primary Care Provider Christiane Altman DIGITAL MEDIA SPECIALIST Primary Care Provider [phone] Encounter Details Date Type Department Care Team (Latest Contact Info) Description 12/06/2021 Transcribe Orders Virtual Department [address] [place] [address] Melchor Escobar MD [address] [place] [address] [email or web address] Hemochromatosis, unspecified hemochromatosis type (Primary Dx) Social History Tobacco Use Types Packs/Day Years Used Date Smoking Tobacco: Never Sex and Gender Information Value Date Recorded Sex Assigned at Not on file Legal Sex Male 6:41 PM EST Gender Identity Not on file Sexual Orientation Not on file documented as of this encounter Plan of Treatment Not on file documented as of this encounter Results * US LIVER WITH ELASTOGRAPHY (02/28/2022 9:29 AM EST) Anatomical Region Laterality Modality Abdomen Ultrasound 02/28/2022 10:5 5 AM EST Impressions 02/28/2022 11:00 AM EST 1. Mean Liver Stiffness Value 11.5 kPa 2. Mildly increased echogenicity of the hepatic parenchyma which again may be on the basis of hepatic steatosis. 3. Similar mild prominence of the common bile duct measuring up to 7 mm Narrative 02/28/2022 11:00 AM EST US LIVER WITH ELASTOGRAPHY History: Hemachromatosis TECHNIQUE: US Limited Abdomen with Liver Elastography. COMPARISON: The last hypertrophy 03/10/2020 FINDINGS: MIDLINE VASCULATURE: The visualized IVC is patent. Portal vein is patent. The aorta is patent where visualized. LIVER: Similar minimally increased echogenicity of the hepatic parenchyma. No focal lesions. BILIARY: Gallbladder: No cholelithiasis. Normal gallbladder wall thickness. No pericholecystic fluid. Sonographic Cazares's sign is negative Common bile duct measures 7 mm, similar. PANCREAS: Incompletely visualized due to overlying bowel gas. Visualized portions are within normal limits PERITONEUM: No free fluid. RIGHT KIDNEY: Normal in size. No hydronephrosis or calculus. Elastography: Sonographic assessment (kPa): 11.5. (IQR/Med: 2 %) (9.1 kPa previously) Risk of fibrosis: This is between 9-13 kPa, which is suggestive of compensated advanced chronic liver disease. Further test needed fir confirmation. SOCIETY OF RADIOLOGISTS IN ULTRASOUND CONSENSUS: In the setting of elevated liver function tests, nonfasting, vascular congestion, etc., the stage of liver fibrosis may be overestimated. In some patients with NAFLD, the cut-off values for compensated advanced chronic liver disease may be lower. In causes other than viral hepatitis and NAFLD, the cut-off values are not well established. Bianca RG, Ezekiel SR, Rustam D, Artie-Rogerio G, Corettaaitushar G. Update to the Society of Radiologists in Ultrasound Liver Elastography Consensus Statement. Radiology. 2020 Sep;296(2):263-274. doi: 10.1148/radiol.[id number]. Epub 2019Jul 29. PMID: [id number]. Procedure Note Blanca Partida MD - 02/28/2022 US LIVER WITH ELASTOGRAPHY History: Hemachromatosis TECHNIQUE: US Limited Abdomen with Liver Elastography. COMPARISON: The last hypertrophy 03/10/2020 FINDINGS: MIDLINE VASCULATURE: The visualized IVC is patent. Portal vein is patent.The aorta is patent where visualized. LIVER: Similar minimally increased echogenicity of the hepatic parenchyma.No focal lesions. BILIARY: Gallbladder: No cholelithiasis. Normal gallbladder wallthickness. No pericholecystic fluid. Sonographic Cazares's sign isnegative Common bile duct measures 7 mm, similar. PANCREAS: Incompletely visualized due to overlying bowel gas. Visualizedportions are within normal limits PERITONEUM: No free fluid. RIGHT KIDNEY: Normal in size. No hydronephrosis or calculus. Elastography: Sonographic assessment (kPa): 11.5. (IQR/Med: 2 %) (9.1 kPa previously) Risk of fibrosis: This is between 9-13 kPa, which issuggestive of compensated advanced chronic liver disease. Further testneeded fir confirmation. SOCIETY OF RADIOLOGISTS IN ULTRASOUND CONSENSUS: In the setting of elevated liver function tests, nonfasting, vascularcongestion, etc., the stage of liver fibrosis may be overestimated. Insome patients with NAFLD, the cut-off values for compensated advancedchronic liver disease may be lower. In causes other than viral hepatitisand NAFLD, the cut-off values are not well established. Bianca RG, Ezekiel SR, Rustam D, Artie-Rogerio G, Deidra G. Update to theSociety of Radiologists in Ultrasound Liver Elastography ConsensusStatement. Radiology. 2020 Sep;296(2):263-274. doi:10.1148/radiol.[id number]. Epub 2019Jul 29. PMID: [id number]. IMPRESSION: 1. Mean Liver Stiffness Value 11.5 kPa 2. Mildly increased echogenicity of the hepatic parenchyma which againmay be on the basis of hepatic steatosis. 3. Similar mild prominence of the common bile duct measuring up to 7 mm us Melchor Escobar MD IMG US ABDOMEN Final Result documented in this encounter Visit Diagnoses Diagnosis Hemochromatosis, unspecified hemochromatosis type- Primary Hemochromatosis, unspecified hemochromatosis type documented in this encounter Care Teams Straight Knife Cutter Machine Relationship Specialty Start Date End Date Shukri Bojorquez DO PCP - General 08/20/13 02/27/22 Delores Carranza NP PCP - General Nurse Practitioner 02/28/22 08/30/23 Christiane Altman NP [address] [place] [address] PCP - General Nurse Practitioner 08/31/23 documented as of this encounter Additional Source Comments The information contained in this document represents components of the legal health record. It is not the complete legal health record.[facility]
--- OUTSIDE RECORDS SUMMARY | 2024-12-10 09:17 | XMS_ITS | Encounter Summary ---
Author Organization [facility] Address [address] [facility] [address] [place] [address] Phone Care Team Providers Care Ferris Wheel Attendant Name Role Phone Christiane Altman ASSEMBLY LINE ROBOT OPERATOR Primary Care Provider [phone] Encounter Details Date Type Department Care Team (Late st Contact Info) Description 06/04/2024 Procedure Pass [facility] Endoscopy Admitting Dept Virtual Department [address] [place] [address] Social History Tobacco Use Types Packs/Day Years Used Date Smoking Tobacco: Never Smokeless Tobacco: Never Alcohol Use Standard Drinks/Week Comments Not Currently [...] on file documented as of this encounter Functional Status * Calculated C-SSRS Risk Score (Lifetime/Recent) Answer Date of Assessment Author No Risk Indicated 06/04/2024 9:41 AM Brittany Haddad RN * [place] Suicide Severity Rating Scale (Screener/Recent Self-Report) Question Answer Date of Assessment Author 1. Wish to be (Past 1 Month) No 06/04/2024 9:41 AM Brittany Haddad Ei, RN 2. Non-Specific Active Suicidal Thoughts (Past 1 Month) No 06/04/2024 9:41 AM Brittany Haddad Ei, RN 6. Suicidal Behavior (Lifetime) No 06/04/2024 9:41 AM Brittany Haddad Ei, RN documented as of this encounter Plan of Treatment Not on file documented as of this encounter Visit Diagnoses Not on filedocumented in this encounter Care Teams Ferris Wheel Attendant Relationship Specialty Start Date End Date Christiane Altman NP [address] [place] [address] PCP - General Nurse Practitioner 08/31/23 documented as of this encounter Additional Source Comments The information contained in this document represents components of the legal health record. It is not the complete legal health record.[facility]
--- OUTSIDE RECORDS SUMMARY | 2024-12-10 09:17 | XMS_ITS | Encounter Summary ---
Author Organization [facility] Address [address] [facility] [address] [place] [address] Phone Care Team Providers Care Fire Alarm Mechanic Name Role Phone AgapitoChristiane BIKE ASSEMBLER Primary Care Provider [phone]- [phone] Encounter Details Date Type Department Care Team (Latest Contact Info) Description 02/16/2024 Transcribe Orders Virtual Department [address] [place] [address] Melchor Escobar MD [address] [place] [address] [email or web address] Hepatic fibrosis (Primary Dx); Hereditary hemochromatosis Social History Tobacco Use Types Packs/Day Years Used Date Smoking Tobacco: Never Smokeless Tobacco: Never Alcohol Use Standard Drinks/Week Comments Yes 1 (1 standard drink = 0.6 oz pur e alcohol) Education Answer Date Recorded Are you interested [...] 05/24/2022 Are you denied basic needs s uch [...] as of this encounter Results * US ABDOMEN LIMITED RIGHT UPPER QUADRANT (03/05/2024 9:26 AM EST) Anatomical Region Laterality Modality Abdomen Ultrasound 03/05/2024 10:2 9 AM EST Impressions 03/05/2024 10:31 AM EST Increased hepatic echogenicity, most likely steatosis. Narrative 03/05/2024 10:31 AM EST US ABDOMEN LIMITED RIGHT UPPER QUADRANT Referring clinician's provided indication for this examination in [facility]: Outside Radiology Order; hepatic fibrosis--- hereditary hemochromatosis TECHNIQUE: US Abdominal limited right upper quadrant. COMPARISON: US ABDOMEN LIMITED RIGHT UPPER QUADRANT ; US LIVER WITH ELASTOGRAPHY ; US LIVER WITH ELASTOGRAPHY FINDINGS: Liver: Diffusely increased echogenicity consistent with fatty liver. Main Portal Vein: Patent with normal direction of flow. Gallbladder: No gallstones or gallbladder wall thickening. Cazares's Sign: Negative. Biliary: No intrahepatic or extrahepatic biliary ductal dilatation. The common bile duct measures 3 mm. Right Kidney: Normal. No stones or hydronephrosis. Free Fluid: None. Procedure Note Layton Bynum MD - 03/05/2024 US ABDOMEN LIMITED RIGHT UPPER QUADRANT Referring clinician's provided indication for this examination in [facility]:Outside Radiology Order; hepatic fibrosis--- hereditary hemochromatosis TECHNIQUE: US Abdominal limited right upper quadrant. COMPARISON: US ABDOMEN LIMITED RIGHT UPPER QUADRANT ; US LIVERWITH ELASTOGRAPHY ; US LIVER WITH ELASTOGRAPHY FINDINGS: Liver: Diffusely increased echogenicity consistent with fatty liver. Main Portal Vein: Patent with normal direction of flow. Gallbladder: No gallstones or gallbladder wall thickening. Cazares's Sign: Negative. Biliary: No intrahepatic or extrahepatic biliary ductal dilatation. The common bile duct measures 3 mm. Right Kidney: Normal. No stones or hydronephrosis. Free Fluid: None. IMPRESSION: Increased hepatic echogenicity, most likely steatosis. us Melchor Escobar MD IMG US ABDOMEN Final Result documented in this encounter Visit Diagnoses Diagnosis Hepatic fibrosis- Primary Cirrhosis of liver without mention of alcohol Hereditary hemochromatosis Hepatic fibrosis Cirrhosis of liver without mention of alcohol Hereditary hemochromatosis documented in this encounter Care Teams Fire Alarm Mechanic Relationship Specialty Start Date End Date Christiane Altman NP [address] [place] [address] PCP - General Nurse Practitioner 08/31/23 documented as of this encounter Additional Source Comments The information contained in this document represents components of the legal health record. It is not the complete legal health record.[facility]
--- OUTSIDE RECORDS SUMMARY | 2024-12-10 09:17 | XMS_ITS | Encounter Summary ---
Author Organization [facility] Address [address] [facility] [address] [place] [address] Phone Care Team Providers Care Php Engineer Name Role Phone Delores Carranza RETAIL TRAINING MANAGER Primary Care Provider Christiane Altman RETAIL TRAINING MANAGER Primary Care Provider [phone]- [phone] Encounter Details Date Type Department Care Team (Latest Contact Info) Description 08/30/2023 Transcribe Orders Virtual Department [address] [place] [address] Melchor Escobar MD [address] [place] [address] [email or web address] Hepatic fibrosis (Primary Dx); Hereditary hemochromatosis [...] * US ABDOMEN LIMITED RIGHT UPPER QUADRANT (08/31/2023 9:03 AM EDT) Anatomical Region Laterality Modality Abdomen Ultrasound 08/31/2023 10:4 7 AM EDT Impressions 08/31/2023 10:53 AM EDT 1. Increased echogenicity of liver suggesting fatty infiltration or other diffuse hepatocellular process. No new focal hepatic lesions identified sonographically. 2. Pancreas not well seen due to bowel gas artifact. Narrative 08/31/2023 10:53 AM EDT US ABDOMEN LIMITED RIGHT UPPER QUADRANT Referring clinician's provided indication for this examination in [facility]: Outside Radiology Order; hepatic fibrosis TECHNIQUE: US Abdominal limited right upper quadrant. COMPARISON: 02/28/2022 FINDINGS: Liver: Diffusely increased echogenicity consistent with fatty liver or other diffuse hepatocellular process. No new focal hepatic lesions identified Main Portal Vein: Patent with normal direction of flow. Gallbladder: Normal. No gallstones or gallbladder wall thickening. Biliary: Normal. No intrahepatic or extrahepatic biliary ductal dilatation. The common bile duct measures 6 mm Pancreas is not well-visualized due to bowel gas artifact. Right kidney is 11.5 cm in length. No shadowing stones or hydronephrosis. Procedure Note Ramirez Rodriguez MD - 08/31/2023 US ABDOMEN LIMITED RIGHT UPPER QUADRANT Referring clinician's provided indication for this examination in [facility]:Outside Radiology Order; hepatic fibrosis TECHNIQUE: US Abdominal limited right upper quadrant. COMPARISON: 02/28/2022 FINDINGS: Liver: Diffusely increased echogenicity consistent with fatty liver orother diffuse hepatocellular process. No new focal hepatic lesionsidentified Main Portal Vein: Patent with normal direction of flow. Gallbladder: Normal. No gallstones or gallbladder wall thickening. Biliary: Normal. No intrahepatic or extrahepatic biliary ductaldilatation. The common bile duct measures 6 mm Pancreas is not well-visualized due to bowel gas artifact. Right kidney is 11.5 cm in length. No shadowing stones orhydronephrosis. IMPRESSION: 1. Increased echogenicity of liver suggesting fatty infiltration or otherdiffuse hepatocellular process. No new focal hepatic lesions identifiedsonographically. 2. Pancreas not well seen due to bowel gas artifact. us Melchor Escobar MD IMG US ABDOMEN Final Result documented in this encounter Visit Diagnoses Diagnosis Hepatic fibrosis- Primary Cirrhosis of liver without mention of alcohol Hereditary hemochromatosis Hepatic fibrosis Cirrhosis of liver without mention of alcohol Hereditary hemochromatosis documented in this encounter Care Teams Php Engineer Relationship Specialty Start Date End Date Delores Carranza NP PCP - General Nurse Practitioner 02/28/22 08/30/23 Christiane Altman NP [address] [place] [address] PCP - General Nurse Practitioner 08/31/23 documented as of this encounter Additional Source Comments The information contained in this document represents components of the legal health record. It is not the complete legal health record.[facility]
--- OUTSIDE RECORDS SUMMARY | 2024-12-10 09:17 | XMS_ITS | Encounter Summary ---
Author Organization [facility] Address [address] [facility] [address] [place] [address] Phone Care Team Providers Care Transportation Attendant Name Role Phone Christiane Altman Logankoki BOX BLANK MACHINE OPERATOR Primary Care Provider [phone] Encounter Details Date Type Department Care Team (Latest Contact Info) Description 02/06/2024 Transcribe Orders [facility] [address] [place] [address] Melchor Escobar MD [address] [facility] [address] [place] [address] [email or web address] Hemochromatosis, unspecified hemochromatosis type (Primary Dx) Social [...] documented as of this encounter Results * (ABNORMAL) Ferritin (02/06/2024 10:57 AM EST) FERRITIN 18(L) 30 - 400 ug/L [facility] Blood 02/06/2024 10:5 7 AM EST 02/06/2024 11:03 AM EST us Melchor Escobar MD LAB BLOOD ORDERABLES Final Res ult Performing Organization Address City/State/[facility] Co de Phone Number [address] [address] * Comprehensive metabolic panel (02/06/2024 10:57 AM EST) SODIUM 138 133 - 146 mmol/L [facility] POTASSIUM 4.5 3.3 - 5.1 mmol/L [facility] CHLORIDE 103 96 - 108 mmol/L [facility] CO2 25 21 - 35 mmol/L [facility] BUN 14 6 - 19 mg/dL [facility] CREATININE 0.90 0.5 - 1.5 mg/dL [facility] GLUCOSE 94 70 - 99 mg/dL [facility] ALBUMIN 4.7 3.9 - 4.8 g/dL [facility] TOTAL PROTEIN 7.2 6.5 - 8.0 g/dL [facility] CALCIUM 9.4 8.4 - 10.3 mg/dL [facility] ALKALINE PHOSPHATASE 66 39 - 117 U/L [facility] TOTAL BILIRUBIN 0.6 0.0 - 1.2 mg/dL [facility] AST 25 0 - 37 U/L [facility] ALT 14 0 - 40 U/L [facility] GLOBULIN 2.5 1 - 4.8 g/dL [facility] EGFR 100 >59 mL/min/1.7 3m2 [facility] Comment:Estimated glomerular filtration rate calculated using the CKD-EPI refit equation. ANION GAP 15 10 - 20 mmol/L [facility] Blood 02/06/2024 10:5 7 AM EST 02/06/2024 11:03 AM EST us Melchor Escobar MD LAB BLOOD ORDERABLES Final Res ult Performing Organization Address City/[facility]/ZIP Co de Phone Number [address] [address] * (ABNORMAL) CBC (02/06/2024 10:57 AM EST) WBC 6.17 4.00 - 11.00 K/uL [facility] RBC 5.15 4.50 - 5.90 M/uL [facility] HGB 12.5(L) 13.5 - 17.5 g/dL [facility] HCT 39.3(L) 41.0 - 53.0 % [facility] PLT 235 150 - 450 K/uL [facility] MCV 76.3(L) 80.0 - 100.0 fL [facility] MCH 24.3(L) 27.0 - 31.0 pg [facility] MCHC 31.8(L) 32.0 - 36.0 g/dL [facility] RDW 14.6(H) 11.5 - 14.5 % [facility] MPV 10.8 8.4 - 12.0 fL [facility] NRBC 0.00 0.00 /100 WBCs [facility] ABSOLUTE NRBC 0.00 0.00 K/uL [facility] Blood 02/06/2024 10:5 7 AM EST 02/06/2024 11:03 AM EST us Melchor Escobar MD LAB BLOOD ORDERABLES Final Res ult Performing Organization Address City/[facility]/ZIP Co de Phone Number [address] [address] documented in this encounter Visit Diagnoses Diagnosis Hemochromatosis, unspecified hemochromatosis type- Primary documented in this encounter Care Teams Transportation Attendant Relationship Specialty Start Date End Date Christiane Altman NP [address] [place] [address] PCP - General Nurse Practitioner 08/31/23 documented as of this encounter Additional Source Comments The information contained in this document represents components of the legal health record. It is not the complete legal health record.[facility]
--- OUTSIDE RECORDS SUMMARY | 2024-12-10 09:17 | XMS_ITS | Encounter Summary ---
Author Organization [facility] Address [address] [facility] [address] [place] [address] Phone Care Team Providers Care Nonprofit Director Name Role Phone CarranzaDelores UNDERWRITING OPERATIONS MANAGER Primary Care Provider Christiane Altman UNDERWRITING OPERATIONS MANAGER Primary Care Provider [phone] Encounter Details Date Type Department Care Team (Latest Contact Info) Description 08/30/2023 Transcribe Orders [facility] Laboratory [address] [place] [address] Melchor Escobar MD [address] [facility] 2 [place] [address] [email or web address] Liver fibrosis (Primary Dx) Social History Tobacco [...] documented as of this encounter Results * PT-INR (08/30/2023 10:49 AM EDT) PT 11.5 10.2 - 12.9 sec [facility] INR 1.0 0.9 - 1.1 [facility] Comment:Therapeutic range fo r oral Vitamin K antagonists: 2.0-3.5 Blood 08/30/2023 10:4 9 AM EDT 08/30/2023 10:54 AM EDT us Melchor Escobar MD LAB BLOOD ORDERABLES Final Res ult Performing Organization Address City/State/[facility] Co de Phone Number [facility] [address] [place] [address] * Comprehensive metabolic panel (08/30/2023 10:49 AM EDT) SODIUM 137 133 - 146 mmol/L [facility] POTASSIUM 4.6 3.3 - 5.1 mmol/L [facility] CHLORIDE 100 96 - 108 mmol/L [facility] CO2 25 21 - 35 mmol/L [facility] BUN 16 6 - 19 mg/dL [facility] CREATININE 1.00 0.5 - 1.5 mg/dL [facility] GLUCOSE 87 70 - 99 mg/dL [facility] ALBUMIN 4.8 3.9 - 4.8 g/dL [facility] TOTAL PROTEIN 7.6 6.5 - 8.0 g/dL [facility] CALCIUM 9.7 8.4 - 10.3 mg/dL [facility] ALKALINE PHOSPHATASE 67 39 - 117 U/L [facility] TOTAL BILIRUBIN 0.9 0.0 - 1.2 mg/dL [facility] AST 34 0 - 37 U/L [facility] ALT 21 0 - 40 U/L [facility] GLOBULIN 2.8 1 - 4.8 g/dL [facility] EGFR 88 >59 mL/min/1.7 3m2 [facility] Comment:Estimated glomerular filtration rate calculated using the CKD-EPI refit equation. ANION GAP 17 10 - 20 mmol/L [facility] Blood 08/30/2023 10:4 9 AM EDT 08/30/2023 10:54 AM EDT us Melchor Escobar MD LAB BLOOD ORDERABLES Final Res ult Performing Organization Address City/[facility]/ZIP Co de Phone Number [address] [address] * CBC (08/30/2023 10:49 AM EDT) WBC 5.84 4.00 - 11.00 K/uL [facility] RBC 5.23 3.90 - 5.69 M/uL [facility] HGB 13.6 12.4 - 17.3 g/dL [facility] HCT 42.2 37.0 - 51.0 % [facility] PLT 238 140 - 430 K/uL [facility] MCV 80.7 78.0 - 97.0 fL [facility] MCH 26.0 25.0 - 33.0 pg [facility] MCHC 32.2 32.0 - 36.0 g/dL [facility] RDW 13.6 11.0 - 15.0 % [facility] MPV 11.2 8.4 - 12.8 fl [facility] Blood 08/30/2023 10:4 9 AM EDT 08/30/2023 10:54 AM EDT us Melchor Escobar MD LAB BLOOD ORDERABLES Final Res ult Performing Organization Address City/[facility]/ZIP Co de Phone Number [address] [address] * AFP (non-maternal specimens) (08/30/2023 10:49 AM EDT) AFP (NON-MATERNAL) 1.9 <7.9 ng/mL [facility] Comment: Test Methodology Rudy [id number] Patient results determined by assays using different manufacturers or methods may not be comparable. Blood 08/30/2023 10:4 9 AM EDT 08/30/2023 10:54 AM EDT us Melchor Escobar MD LAB BLOOD ORDERABLES Final Res ult [facility] [address] [place] [address] documented in this encounter Visit Diagnoses Diagnosis Liver fibrosis- Primary Cirrhosis of liver without mention of alcohol documented in this encounter Care Teams Nonprofit Director Relationship Specialty Start Date End Date Delores Carranza NP PCP - General Nurse Practitioner 02/28/22 08/30/23 Christiane Altman NP [address] [place] [address] PCP - General Nurse Practitioner 08/31/23 documented as of this encounter Additional Source Comments The information contained in this document represents components of the legal health record. It is not the complete legal health record.[facility]
--- OUTSIDE RECORDS SUMMARY | 2024-12-10 09:17 | XMS_ITS | Encounter Summary ---
Author Organization [facility] Address [address] [facility] [address] [place] [address] Phone Care Team Providers Care Electro Mechanical Engineer Name Role Phone CarranzaDelores SECOND CUTTER Primary Care Provider Christiane Altman SECOND CUTTER Primary Care Provider [phone] Encounter Details Date Type Department Care Team (Latest Contact Info) Description 08/10/2022 Transcribe Orders Virtual Department [address] [place] [address] Melchor Escobar MD [address] [place] [phone] [email or web address] Hemochromatosis, unspecified hemochromatosis type (Primary Dx) Social [...] as of this encounter Visit Diagnoses Diagnosis Hemochromatosis, unspecified hemochromatosis type- Primary documented in this encounter Care Teams Electro Mechanical Engineer Relationship Specialty Start Date End Date Delores Carranza NP PCP - General Nurse Practitioner 02/28/22 08/30/23 Christiane Altman NP [address] [place] [address] PCP - General Nurse Practitioner 08/31/23 documented as of this encounter Additional Source Comments The information contained in this document represents components of the legal health record. It is not the complete legal health record.[facility]
--- OUTSIDE RECORDS SUMMARY | 2024-12-10 09:17 | XMS_ITS | Encounter Summary ---
Author Organization [facility] Address [address] [place] [address] Phone Care Team Providers Care Underwriting Analyst Name Role Phone Shukri Bojorquez DO Primary Care Provider [phone] Delores Carranza TRANSFORMER MOLDER Primary Care Provider Christiane Altman TRANSFORMER MOLDER Primary Care Provider [phone] Encounter Details Date Type Department Care Team (Latest Contact Info) Description 02/20/2020 Transcribe Orders Virtual Department [address] [place] [address] Melchor Hill MD [address] [place] [phone] [email or web address] Liver fibrosis (Primary Dx) Social History [...] alcohol documented in this encounter Care Teams Underwriting Analyst Relationship Specialty Start Date End Date Shukri Bojorquez DO PCP - General 08/20/13 02/27/22 Delores Carranza NP PCP - General Nurse Practitioner 02/28/22 08/30/23 Christiane Altman NP [address] [place] [address] PCP - General Nurse Practitioner 08/31/23 documented as of this encounter Additional Source Comments The information contained in this document represents components of the legal health record. It is not the complete legal health record.[facility]
--- OUTSIDE RECORDS SUMMARY | 2024-12-10 09:17 | XMS_ITS | Encounter Summary ---
Author Organization [facility] Address [address] [facility] [address] [place] [address] Phone Care Team Providers Care E Learning Coordinator Name Role Phone Shukri Bojorquez Primary Care Provider [phone] Delores Carranza HEAD CLEANING PORTER Primary Care Provider Christiane Altman HEAD CLEANING PORTER Primary Care Provider [phone] Encounter Details Date Type Department Care Team (Latest Contact Info) Description 02/20/2020 Transcribe Orders Virtual Department [address] [place] [address] Melchor Escobar MD [address] [place] [phone] [email or web address] Liver fibrosis (Primary Dx) Social History Tobacco [...] encounter Results * US LIVER WITH ELASTOGRAPHY (03/10/2020 10:22 AM EST) Anatomical Region Laterality Modality Abdomen Ultrasound 03/10/2020 12:0 7 PM EST Impressions 03/11/2020 8:04 AM EST 1.Borderline elevated median shear wave speed (1.74 m/s) suggestive of complicated advanced chronic liver disease as below. 2.Hepatic steatosis. 3.Borderline CBD dilatation-7 mm. MEDIAN SHEAR WAVE SPEED: 1.3 m/s: High probability of being normal < 1.7 m/s: In the absence of other known clinical signs, rules out compensated advanced chronic liver disease. If there are known clinical signs, may need further testing for confirmation 1.7-2.1 m/s: Suggestive of compensated advanced chronic liver disease, but need further test for confirmation >2.1 m/s: Rules in compensated advanced chronic liver disease >2.4 m/s: Suggestive of compensated advanced chronic liver disease [employer]IETY OF RADIOLOGISTS IN ULTRASOUND CONSENSUS: In the setting of elevated liver function tests, nonfasting, vascular congestion, etc., the stage of liver fibrosis may be overestimated. In some patients with NAFLD, the cut-off values for compensated advanced chronic liver disease may be lower. In causes other than viral hepatitis and NAFLD, the cut-off values are not well established. Narrative 03/11/2020 8:04 AM EST TECHNIQUE: Focused ultrasound evaluation of the liver. Volumetric sweeps were obtained and reviewed. COMPARISON: None. LIVER ELASTOGRAPHY ULTRASOUND FINDINGS: LIVER: Diffusely hyperechoic. No masses. Patent portal vein is patent with normal direction of flow. ELASTOGRAPHY: Liver stiffness measurements were obtained in the right hepatic lobe on a RotaPostsuLab42 ultrasound machine. Point shear wave elastography technique was utilized following SRU guidelines. Measurements obtained at site B are reported for technical adequacy. 10 valid measurements were obtained. Median shear wave speed: 1.74 m/s (9.1 kPa). IQR to median ratio: 4.3%. BILIARY: Gallbladder: Gallbladder is normal. Common bile duct measures borderline dilated at 7 mm. ADDITIONAL FINDINGS: Imaged right kidney, pancreas, proximal aorta and IVC are unremarkable. Procedure Note Desmond Miller MD - 03/11/2020 TECHNIQUE: Focused ultrasound evaluation of the liver. Volumetric sweeps wereobtained and reviewed. COMPARISON: None. LIVER ELASTOGRAPHY ULTRASOUND FINDINGS: LIVER: Diffusely hyperechoic. No masses. Patent portal vein is patentwith normal direction of flow. ELASTOGRAPHY: Liver stiffness measurements were obtained in the righthepatic lobe on a RotaPostsuLab42 ultrasound machine. Point shear waveelastography technique was utilized following SRU guidelines. Measurementsobtained at site B are reported for technical adequacy. 10 validmeasurements were obtained. Median shear wave speed: 1.74 m/s (9.1 kPa).IQR to median ratio: 4.3%. BILIARY: Gallbladder: Gallbladder is normal. Common bile duct measures borderline dilated at 7 mm. ADDITIONAL FINDINGS: Imaged right kidney, pancreas, proximal aorta and IVCare unremarkable. IMPRESSION: 1.Borderline elevated median shear wave speed (1.74 m/s) suggestive ofcomplicated advanced chronic liver disease as below. 2.Hepatic steatosis. 3.Borderline CBD dilatation-7 mm. MEDIAN SHEAR WAVE SPEED: 1.3 m/s: High probability of being normal < 1.7 m/s: In the absence of other known clinical signs, rules outcompensated advanced chronic liver disease. If there are known clinicalsigns, may need further testing for confirmation 1.7-2.1 m/s: Suggestive of compensated advanced chronic liver disease,but need further test for confirmation >2.1 m/s: Rules in compensated advanced chronic liver disease >2.4 m/s: Suggestive of compensated advanced chronic liver disease SOCIETY OF RADIOLOGISTS IN ULTRASOUND CONSENSUS: In the setting of elevated liver function tests, nonfasting, vascularcongestion, etc., the stage of liver fibrosis may be overestimated. Insome patients with NAFLD, the cut-off values for compensated advancedchronic liver disease may be lower. In causes other than viral hepatitisand NAFLD, the cut-off values are not well established. Melchor Escobar MD [facility] US ABDOMEN Final Result documented in this encounter Visit Diagnoses Diagnosis Liver fibrosis- Primary Cirrhosis of liver without mention of alcohol Liver fibrosis Cirrhosis of liver without mention of alcohol documented in this encounter Care Teams E Learning Coordinator Relationship Specialty Start Date End Date Shukri Bojorquez DO PCP - General 08/20/13 02/27/22 Delores Carranza NP PCP - General Nurse Practitioner 02/28/22 08/30/23 Christiane Altman NP [address] [place] [address] PCP - General Nurse Practitioner 08/31/23 documented as of this encounter Additional Source Comments The information contained in this document represents components of the legal health record. It is not the complete legal health record.[facility]
== END 2024-12-10 08:52 | disposition home or self-care (01) ==
LOC: HO.BBR 08:51
PROVIDERS: PCP Nurse Practitioner Family; Visit Provider Internal Medicine Gastroenterology
DX: Z13.89 Encounter for screening for other disorder (principal)

== ENCOUNTER 2024-12-17 08:17 | Outpatient (AMB) | payer OTHER, SELFPAY ==
--- NOTE | 2024-12-17 08:19 | MHC.PC.OV ---
Vital Signs 12/17/24 08:23 Height 6 ft 1 in Weight 234 lb 6 oz BMI 30.9 BP 123/66 Blood Pressure Location Rt brachial Position Sitting Respiration 16 Pulse 58 Pulse Source Pulse Oximeter Temp 97.3 F Temp Source Oral Pulse Oximetry (%) 100 Oxygen Delivery Method Room Air Intake Visit Reasons: 3 mos HTN Intake Note: patient here for follow up on HTN Steamfitter Required: No Allergies No Known Allergies Allergy (Verified 12/17/24 08:36) Medication List - Last Reconciled 12/17/24 by Christiane Altman CNP lansoprazole 30 mg PO DAILY lisinopril 40 mg PO DAILY 30 days naproxen 500 mg PO BID PRN Tobacco use date assessed: 12/17/24 Dental Screening Dental Screen Date: 12/17/24 Did you have a dental visit in the last 12 months?: Yes Did you have a dental problem in the last 6 months where you did not have access to dental care?: No Was dental information given to patient?: Patient has dentist HPI HPI Comments History of Present Illness Details 59-year-old male presents for hypertension follow-up. He admits to taking his medications as prescribed without adverse reactions. He notes that he has been making healthy lifestyle changes. No acute symptoms at this time. [facility] Medical History Migraine GERD (gastroesophageal reflux disease) Body mass index (BMI) of 40.0 to 44.9 in adult Morbid obesity due to excess calories Neoplasm of uncertain behavior of face Male erectile dysfunction, unspecified Bilateral hearing loss Colon cancer Hemochromatosis Hemochromatosis Erectile dysfunction Morbid obesity due to excess calories Family history of colon cancer in father Adult BMI 40.0-44.9 kg/sq m Male erectile dysfunction, unspecified Hearing screen following failed hearing test Hemochromatosis Neoplasm of skin of face Sessile colonic polyp Surgical History H/O endoscopy History of removal of skin mole History of colonoscopy with polypectomy History of removal of skin mole History of colonoscopy Family History Father Colon cancer Mother History of mitral valve disorder Father Colon cancer Mother Kidney failure, acute Brother Myocardial infarction Sister Skin cancer Father Colon cancer Mother Mitral valve disease Kidney failure Brother Diabetes type 2, controlled Social History Household Members: None Both parents involved: No Caregiver staying overnight: No Housing: House Are you a primary tree care foreman to a significant other at home: No 75 years or older and lives alone: No Alcohol intake: current Alcohol intake frequency: holidays/special occasions only Patient Tobacco Use Status: Former Tobacco user Tobacco use type: Smokeless Tobacco e-Cigarette/Vaping Use: Former Use ([employer]) Second Hand Smoke Exposure: Yes Substance Use Type: Marijuana service: No Current occupational status: employed Current occupation: [employer] Current occupational exposures/hazards: No Sexual orientation: Unable to collect Gender identity: Unable to collect Cognitive needs: No Hearing needs: Yes Vision needs: No Questionnaire Thrive Questionnaire Date Thrive assessed: 03/25/24 I am a: Patient What is your living situation today?: I have a steady place to live Within the past 12 months, did the food you bought not last and you didn't have the money to get more?: Never true Within the past 12 months, did you worry whether your food would run out before you got money to buy more?: Never true Do you have trouble paying for medicines?: No Do you have trouble getting transportation to medical appointments?: No Do you have trouble paying your heating and electricity bill?: No Do you have trouble taking care of your child, family member or friend?: No Do you have trouble with day-to-day activities such as bathing, preparing meals, shopping, managing finances, etc.?: No Are you currently unemployed and looking for a job?: No Are you interested in more education?: No Please select the resources that you would like help with: None Currently or been in a relationship where the following occur: No concerns reported THRIVE Score: 0 LAKESHA-7 AMB Questionnaire LAKESHA-7 Date LAKESHA - 7 assessed: 05/09/24 Source: Developed by Drs. Brandon Win, Christine Douglas, Alfonzo Brooks and colleagues, with an educational shira from [employer] Review of Systems Const Details: Const Denies chills, Denies fatigue, Denies fever(s), Denies headache(s) and Denies weakness ENT Denies dizziness and Denies headache(s) Card Denies chest pain, Denies lightheadedness, Denies dyspnea and Denies other (Palpitations) Resp Denies cough, Denies dyspnea, Denies wheezing and Denies other ( shortness of breath) GI Denies abdominal pain, Denies melena, Denies hematochezia, Denies change in bowel habits, Denies dyspepsia and Denies nausea Denies hematuria and Denies dysuria Musc Denies abnormal gait, Denies myalgias, Denies arthralgias, Denies numbness and Denies tingling Skin/Breast Denies rash, Denies unusual bruising and Denies wounds Neuro Denies abnormal gait, Denies dizziness, Denies headache(s), Denies memory loss, Denies numbness, Denies Sensory deficit (Neuro), Denies tingling and Denies weakness Psych Denies anxiety, Denies depression, Denies memory loss Endo Denies cold intolerance, Denies fatigue, Denies heat intolerance, Denies polydipsia and Denies polyuria Aller/Immun Denies wheezing Physical exam (Primary Care) Vital Signs: Last Vital Signs Temp 97.3 F 12/17/24 08:23 Pulse 58 12/17/24 08:23 Resp 16 12/17/24 08:23 BP 123/66 12/17/24 08:23 Pulse Ox 100 12/17/24 08:23 Oxygen Delivery Method Room Air 12/17/24 08:23 BMI result Body Mass Index 30.9 Tobacco/Smoking Status: Tobacco use Status Tobacco use date assessed 12/17/24 12/17/24 08:26 Patient Tobacco Use Status Former Tobacco user 12/17/24 08:21 Tobacco use type Smokeless Tobacco 12/17/24 08:21 e-Cigarette/Vaping Use Former Use ([facility]) 12/17/24 08:21 Thrive Assessment: Date of Thrive Assessment Date Thrive assessed 03/25/24 12/17/24 08:21 Currently or been in a relationship where the following occur: No concerns reported Const Other: General: no acute distress and well developed Nutritional Appearance: well nourished Orientation/consciousness: patient oriented x3 HENMT Head: Yes normocephalic and Yes atraumatic Eyes General: appearance normal, both eyes and all related structures Pupils: Equal, round and reactive pupils present EOM: EOMs intact bilaterally Resp Effort & Inspection: normal respiratory effort Auscultation: clear to auscultation bilaterally Cardio Rate: regular rate Rhythm: regular rhythm Heart sounds: S1 normal heart sound present, S2 normal heart sound present, no gallops, no murmurs and no rubs GI Palpation (GI): No Abdominal aortic bruit present, Soft to palpation, nontender, No hepatosplenomegaly present and No Rebound tenderness present Auscultation: normal bowel sounds General: Yes no CVA tenderness Back/Spine/Pelvis Back: no CVA tenderness Cervical Spine: cervical ROM normal and No Cervical spine tenderness Thoracic/Lumbar Spine: thoraco-lumbar ROM normal, No pain with thoraco-lumbar ROM, No thoracic spinal tenderness and No lumbar spinal tenderness Extrem General: Yes normal to inspection, No edema and No calf tenderness Skin General: warm and dry. Normal skin color. Normal skin turgor Neuro General: patient oriented x3, gait normal and no focal neuro deficit Cranial nerves: Yes Equal, round and reactive pupils present Cognition (Neuro): normal cognition Gait exam (Neuro): Normal gait present Sensory Exam: No Sensory deficit (Neuro) Psych Appearance: grossly normal Affect: normal affect Attitude: cooperative Thought process: Normal thought process present Coding Level of Care Code Est Pt Level 3 (48565) Diagnoses Primary hypertension I10 Hypertension type: primary hypertension Assessment & Plan Assessment & Plan (1) Hypertension: Comment: Goal <140/90 Code(s): I10 - Essential (primary) hypertension Category: Medical Qualifiers: Hypertension type: primary hypertension Qualified Code(s): I10 - Essential (primary) hypertension Plan: Blood pressure is 123/66, within goal of less than 140/90. Continue current treatment regimen. Low-sodium diet encouraged. Follow-up for AUDI/HTN in 3 months. Return sooner with symptoms or concerns. Verbalized understanding and agreed with the plan.
[2024-12-17 08:23] VITALS: BP 123/66; PULSE 58; RESP 16; TEMP 36.3; O2SAT 100; BMI 30.9
== END 2024-12-17 08:52 | disposition home or self-care (01) ==
PROVIDERS: PCP Nurse Practitioner Family; Visit Provider Nurse Practitioner Family
DX: I10 Essential (primary) hypertension (principal)

== ENCOUNTER 2025-01-27 13:09 | Outpatient (REF) | payer OTHER, SELFPAY ==
--- NOTE | ~2025-01-27 | XR_ITS ---
EXAMINATION: XR PELVIS CLINICAL INFORMATION: M25.559 - Pain in unspecified hip COMPARISON: July 07, 2023. TECHNIQUE: AP view of the pelvis. FINDINGS: Sclerosis along the articular surface of the acetabulum and femoral head pronounced on the left coxofemoral joint. Marginal osteophyte formation in the inferior aspect of the left femoral head. Joint space narrowing, both coxofemoral joints. No acute fracture. Facet joint hypertrophy at L5-S1. No lytic or blastic lesions. XR/XR pelvis 1-2V IMPRESSION: Osteoarthrosis/osteoarthritis, moderate, both hips pronounced on the left side. Spondylosis, L5-S1. Electronically signed by: Omid Mccoy MD 01/27/2025 01:31 PM MOUSTAPHA
--- OUTSIDE RECORDS SUMMARY | 2025-01-27 21:52 | XMS_ITS | Encounter Summary ---
Author Organization [facility] Address [address] [place] [address] Phone Care Team Providers Care Speed Belt Sander Name Role Phone Shukri Bojorquez DO Primary Care Provider [phone] Delores Carranza CONFERENCE PLANNING MANAGER Primary Care Provider Christiane Altman CONFERENCE PLANNING MANAGER Primary Care Provider [phone] Encounter Details Date Type Department Care Team (Latest Contact Info) Description 02/20/2020 Transcribe Orders Virtual Department [address] [place] [address] Melchor Hill MD [address] [place] [phone] [email or web address] Liver fibrosis (Primary Dx) Social History [...] alcohol documented in this encounter Care Teams Speed Belt Sander Relationship Specialty Start Date End Date Shukri Bojorquez DO PCP - General 08/20/13 02/27/22 Delores Carranza NP PCP - General Nurse Practitioner 02/28/22 08/30/23 Christiane Altman NP [address] [place] [address] PCP - General Nurse Practitioner 08/31/23 documented as of this encounter Additional Source Comments The information contained in this document represents components of the legal health record. It is not the complete legal health record.[facility]
--- OUTSIDE RECORDS SUMMARY | 2025-01-27 21:53 | XMS_ITS | Encounter Summary ---
Author Organization [facility] Address [address] [facility] [address] [place] [phone] Phone Care Team Providers Care Maintenance Manager Name Role Phone Delores Carranza DREDGE PIPEMAN Primary Care Provider Christiane Altman DREDGE PIPEMAN Primary Care Provider [phone] Encounter Details Date Type Department Care Team (Latest Contact Info) Description 08/30/2023 Transcribe Orders Virtual Department [address] [place] [address] Melchor Escobar MD [address] [place] [phone] [email or web address] Hepatic fibrosis (Primary Dx); Hereditary [...] clinician's provided indication for this examination in [facility]: Outside Radiology Order; hepatic fibrosis TECHNIQUE: [...] clinician's provided indication for this examination in [facility]:Outside Radiology Order; hepatic fibrosis TECHNIQUE: US [...] hemochromatosis documented in this encounter Care Teams Maintenance Manager Relationship Specialty Start Date End Date Delores Carranza NP PCP - General Nurse Practitioner 02/28/22 08/30/23 Christiane Altman NP [address] [place] [address] PCP - General Nurse Practitioner 08/31/23 documented as of this encounter Additional Source Comments The information contained in this document represents components of the legal health record. It is not the complete legal health record.[facility]
--- OUTSIDE RECORDS SUMMARY | 2025-01-27 21:53 | XMS_ITS | Encounter Summary ---
Author Organization [facility] Address [address] [facility] [address] [place] [address] Phone Care Team Providers Care Biological Aide Name Role Phone AgapitoChristiane COMPUTER PROGRAMMING SUPERVISOR Primary Care Provider [phone]- [phone] Reason for Visit * Reason Comments Medication Refill Encounter Details Date Type Department Care Team ([facility] st Contact Info) Description 01/22/2025 Refill [facility] [address] [place] [address] Melchor Escobar MD [address] [place] [address] [email or web address] Medication Refill Social History Tobacco Use Types Packs/Day Years [...] on file documented as of this encounter Progress Notes * Cinthya Finney - 01/23/2025 9:27 AM ESTAddended by: CINTHYA FINNEY on: 01/23/2025 09:27 AM Modules accepted: Orders * Cinthya Finney - 01/23/2025 9:22 AM EST Rx Care Gap Status - Instructions for Clinical Staff (prescriber discretion applies): > Mismatch review guide > At least one request does not meet full criteria. Specifics below. > No recent or future appts: Please review request for appropriateness. Visit Info Last visit: No visit found in the past 3 years > Requested f/u: Not specified Upcoming visit: None ACTIONS TAKEN BY Cinthya Finney - Criteria met. Patient's last visit was in an external electronic medical record The following is not assessed by Rx Protocols; Rx duration at prescriber discretion Date of last visit: 07/23/2024 Dispense History: Melchor Escobar [address] [place] [id number] Tel: [phone] Fax: [phone] ePrescription Receipt Copy Only - Refill Renewal LISA BARBOUR [address] [place] [address] : 1965 Height: 73 in (02/06/2024) ; Weight: 233 lbs (02/06/2024) Tel: [phone] Date: 06/26/2024 [facility] [address], [address] [place] [address] [place], Tel: [phone] Fax: [phone] [facility] ID: [id number] Rx Lansoprazole 30 MG Capsule Delayed Release Disp: 30 Capsule, Duration: 30 day(s) Si capsule before a meal Orally Once a day 30 days D.A.W Refills: 5(1 fill + 5 remaining refills) Gastrointestinal Rx Protocol (H2 blockers, PPIs, stool softeners, laxatives) - lansoprazole - lansoprazole Criteria not met; renew for up to 3 months. 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 It is not the complete legal health record.[facility]
--- OUTSIDE RECORDS SUMMARY | 2025-01-27 21:53 | XMS_ITS | Encounter Summary ---
Author Organization [facility] Address 399 [facility] [address] [place] [address] Phone Care Team Providers Care Aerial Hurricane Hunter Name Role Phone AgapitoChristiane TEAM FACILITATOR Primary Care Provider [phone]- [phone] Encounter Details Date Type Department Care Team (Latest Contact Info) Description 02/16/2024 Transcribe Orders Virtual Department [address] [place] [address] Melchor Escobar MD [address] [place] [address] [email or web address] Hepatic fibrosis (Primary Dx); Hereditary hemochromatosis Social [...] clinician's provided indication for this examination in [facility]: Outside Radiology Order; hepatic fibrosis--- hereditary hemochromatosis [...] clinician's provided indication for this examination in [facility]:Outside Radiology Order; hepatic fibrosis--- hereditary hemochromatosis TECHNIQUE: [...] hemochromatosis documented in this encounter Care Teams Aerial Hurricane Hunter Relationship Specialty Start Date End Date Christiane Altman NP [address] [place] [address] PCP - General Nurse Practitioner 08/31/23 documented as of this encounter Additional Source Comments The information contained in this document represents components of the legal health record. It is not the complete legal health record.[facility]
--- OUTSIDE RECORDS SUMMARY | 2025-01-27 21:53 | XMS_ITS | Encounter Summary ---
Author Organization [facility] Address 399 [facility] [address] [place] [address] Phone Care Team Providers Care Per Assessment Nurse Name Role Phone AgapitoChristiane tao Logankoki TIN TIE MACHINE OPERATOR AUTOMATIC Primary Care Provider [phone]- [phone] Encounter Details Date Type Department Care Team ([facility] st Contact Info) Description 01/01/2025 Orders Only [facility] [address] [place] [address] Melchor Escobar MD [address] [place] [address] [email or web address] Social History Tobacco Use Types Packs/Day Years [...] on file documented as of this encounter Procedures Procedure Name Priority Date/Time Associated Diagnosis Comments OUTSIDE LAB Routine 12/10/2024 1:27 PM EDT documented in this encounter Results * Outside Lab (Non-MGB) (12/10/2024 1:27 PM EDT) Melchor Escobar MD LAB BLOOD BKR ORDERABLES Edite d Result - Final documented in this encounter Visit Diagnoses Not on filedocumented in this encounter Care Teams Per Assessment Nurse Relationship Specialty Start Date End Date Christiane Altman NP [address] [place] [address] PCP - General Nurse Practitioner 08/31/23 documented as of this encounter Additional Source Comments The information contained in this document represents components of the legal health record. It is not the complete legal health record.[facility]
--- OUTSIDE RECORDS SUMMARY | 2025-01-27 21:53 | XMS_ITS | Encounter Summary ---
Author Organization [facility] Address 399 [facility] [address] [place] [address] Phone Care Team Providers Care Capsule Inspector Name Role Phone Shukri Bojorquez Primary Care Provider [phone] Delores Carranza DONOR SERVICES MANAGER Primary Care Provider Christiane Altman DONOR SERVICES MANAGER Primary Care Provider [phone]- [phone] Encounter Details Date Type Department Care Team (Latest Contact Info) Description 12/06/2021 Transcribe Orders Virtual Department 30 [place] [address] Melchor Escobar MD [address] [place] [address] [email or web address] Hemochromatosis, unspecified hemochromatosis type (Primary Dx) Social [...] Elastography Consensus Statement. Radiology. 2020 Sep;296(2):263-274. doi: 10.1148/radiol.[id number]. Epub 2019Jul 29. PMID: [id number]. Procedure Note Blanca Partida MD - 02/28/2022 [...] Ultrasound Liver Elastography ConsensusStatement. Radiology. 2020 Sep;296(2):263-274. doi:10.1148/radiol.[id number]. Epub 2019Jul 29. PMID: [id number]. IMPRESSION: 1. Mean Liver Stiffness Value 11.5 [...] type documented in this encounter Care Teams Capsule Inspector Relationship Specialty Start Date End Date Shukri Bojorquez DO PCP - General 08/20/13 02/27/22 Delores Carranza NP PCP - General Nurse Practitioner 02/28/22 08/30/23 Christiane Altman NP [address] [place] [address] PCP - General Nurse Practitioner 08/31/23 documented as of this encounter Additional Source Comments The information contained in this document represents components of the legal health record. It is not the complete legal health record.[facility]
--- OUTSIDE RECORDS SUMMARY | 2025-01-27 21:53 | XMS_ITS | Encounter Summary ---
Author Organization [facility] Address [address] [address] Phone Care Team Providers Care Paper Cap Machine Operator Name Role Phone Christiane Altman MORTGAGE MANAGER Primary Care Provider [phone] Reason for Visit * Reason Onset Date Comments Medication Refill 01/23/2025 Encounter Details Date Type Department Care Team (Late st Contact Info) Description 01/23/2025 Refill [facility] [address] [place] [address] Kacy Rangel LPN [address] [place] [address] [email or web address] Medication Refill Social History Tobacco Use Types [...] as of this encounter Progress Notes * Kacy Rangel LPN - 01/23/2025 9:36 AM EST Requesting refill on Lansoprazole documented in this encounter Plan of Treatment Not on file documented as of this encounter Visit Diagnoses Diagnosis Cirrhosis of liver- Primary Cirrhosis of liver without mention of alcohol documented in this encounter Care Teams Paper Cap Machine Operator Relationship Specialty Start Date End Date Christiane Altman NP [address] [place] [address] PCP - General Nurse Practitioner 08/31/23 documented as of this encounter Additional Source Comments The information contained in this document represents components of the legal health record. It is not the complete legal health record.[facility]
--- OUTSIDE RECORDS SUMMARY | 2025-01-27 21:53 | XMS_ITS | Encounter Summary ---
Author Organization [facility] Address [address] [facility] [address] [place] [address] Phone Care Team Providers Care Neurology Hospitalist Name Role Phone AgapitoChristiane tao Logankoki BRAKESHOE REPAIRER Primary Care Provider [phone] Encounter Details Date Type Department Care Team (Latest Contact Info) Description 02/06/2024 Transcribe Orders [facility] [address] [place] [address] Melchor Escobar MD [address] [facility] 2 [place] [address] [email or web address] Hemochromatosis, unspecified hemochromatosis type (Primary Dx) Social [...] EST) FERRITIN 18(L) 30 - 400 ug/L [facility] Blood 02/06/2024 10:5 7 AM EST 02/06/2024 11:03 AM EST us Melchor Escobar MD LAB BLOOD BKR ORDERABLES Final Result Performing Organization Address City/State/[facility] Co de Phone Number [address] [address] * Comprehensive metabolic panel (02/06/2024 10:57 AM EST) SODIUM 138 133 - 146 mmol/L [facility] POTASSIUM 4.5 3.3 - 5.1 mmol/L [facility] CHLORIDE 103 96 - 108 mmol/L [facility] CO2 25 21 - 35 mmol/L [facility] BUN 14 6 - 19 mg/dL [facility] CREATININE 0.90 0.5 - 1.5 mg/dL [facility] GLUCOSE 94 70 - 99 mg/dL [facility] ALBUMIN 4.7 3.9 - 4.8 g/dL [facility] TOTAL PROTEIN 7.2 6.5 - 8.0 g/dL [facility] CALCIUM 9.4 8.4 - 10.3 mg/dL [facility] ALKALINE PHOSPHATASE 66 39 - 117 U/L [facility] TOTAL BILIRUBIN 0.6 0.0 - 1.2 mg/dL [facility] AST 25 0 - 37 U/L [facility] ALT 14 0 - 40 U/L [facility] GLOBULIN 2.5 1 - 4.8 g/dL [facility] EGFR 100 >59 mL/min/1.7 3m2 [facility] Comment:Estimated glomerular filtration rate calculated using the CKD-EPI refit equation. ANION GAP 15 10 - 20 mmol/L [facility] Blood 02/06/2024 10:5 7 AM EST 02/06/2024 11:03 AM EST us Melchor Escobar MD LAB BLOOD BKR ORDERABLES Final Result [address] [address] * (ABNORMAL) CBC (02/06/2024 10:57 AM EST) WBC 6.17 4.00 - 11.00 K/uL [facility] RBC 5.15 4.50 - 5.90 M/uL [facility] HGB 12.5(L) 13.5 - 17.5 g/dL [facility] HCT 39.3(L) 41.0 - 53.0 % [facility] PLT 235 150 - 450 K/uL [facility] MCV 76.3(L) 80.0 - 100.0 fL [facility] MCH 24.3(L) 27.0 - 31.0 pg [facility] MCHC 31.8(L) 32.0 - 36.0 g/dL [facility] RDW 14.6(H) 11.5 - 14.5 % [facility] MPV 10.8 8.4 - 12.0 fL [facility] NRBC 0.00 0.00 /100 WBCs [facility] ABSOLUTE NRBC 0.00 0.00 K/uL [facility] Blood 02/06/2024 10:5 7 AM EST 02/06/2024 11:03 AM EST us Melchor Escobar MD LAB BLOOD BKR ORDERABLES Final Result [address] [address] documented in this encounter Visit Diagnoses Diagnosis Hemochromatosis, unspecified hemochromatosis type- Primary documented in this encounter Care Teams Neurology Hospitalist Relationship Specialty Start Date End Date Christiane Atlman NP [address] [place] [address] PCP - General Nurse Practitioner 08/31/23 documented as of this encounter Additional Source Comments The information contained in this document represents components of the legal health record. It is not the complete legal health record.[facility]
--- OUTSIDE RECORDS SUMMARY | 2025-01-27 21:53 | XMS_ITS | Encounter Summary ---
Author Organization [facility] Address [address] [facility] [address] [place] [address] Phone Care Team Providers Care Case Resolution Specialist Name Role Phone Delores Carranza INSTRUMENTATION CONTROLS ENGINEER Primary Care Provider Christiane Altman INSTRUMENTATION CONTROLS ENGINEER Primary Care Provider [phone]- [phone] Encounter Details Date Type Department Care Team (Late st Contact Info) Description 05/24/2022 Procedure Pass [facility] Endoscopy Admitting Dept Virtual Department [address] [place] [address] Social History Tobacco Use Types Packs/Day Years Used Date Smoking Tobacco: Never Smokeless Tobacco: Never Alcohol Use Standard Drinks/Week Comments Yes 1 (1 standard drink = 0.6 oz pur e alcohol) Intimate Partner Violence Answer Date R ecorded Are you denied basic needs s [facility] as food, clothing, or medical care? No 05/24/2022 In the past 12 months have y ou been in a relationship with a person who hurts, threatens, or tries to control you? No 05/24/2022 Are you denied basic needs s [facility] as food, clothing, or medical care? No [...] on filedocumented in this encounter Care Teams Case Resolution Specialist Relationship Specialty Start Date End Date Delores Carranza NP PCP - General Nurse Practitioner 02/28/22 08/30/23 Christiane Altman NP [address] [place] [address] PCP - General Nurse Practitioner 08/31/23 documented as of this encounter Additional Source Comments The information contained in this document represents components of the legal health record. It is not the complete legal health record.[facility]
--- OUTSIDE RECORDS SUMMARY | 2025-01-27 21:54 | XMS_ITS | Clinical Summary ---
Author Organization [facility] Address 399 [facility] [address] [place] [address] Phone Care Team Providers Care Rn Advice Name Role Phone AgapitoMisha taosantino Nunes DEFENSIVE SECONDARY COACH Primary Care Provider [phone]- [phone] Allergies No known active allergies Medications lisinopril (PRINIVIL,ZESTR IL) 40 MG tablet Take 1 tablet by mouth every morning. 5 Active naproxen (NAPROSYN) 500 MG tablet Take 500 mg by mouth 2 (two) times a day as needed. 5 Active lansoprazole (PREVACID) 30 MG capsuleIndicati ons:Talbert's esophagus determined by biopsy Take 1 capsule (30 mg total) by mouth daily. 30 capsule 5 5 Active lansoprazole (PREVACID) 30 MG capsule Take 30 mg by mouth daily. 5 01/24/20 25 Discontinu ed(Reorder ) Active Problems Problem Noted Date Diagnosed Date Hemochromatosis 12/05/2011 Overview (04/12/2014): Hemochromatosis Cirrhosis of liver 12/05/2011 Overview (04/12/2014): Cirrhosis of liver Encounters Date Type Department Care Team Description 01/23/2025 Refill [facility] [address] [place] [address] Kacy Rangel LPN Medication Refill 01/22/2025 Refill [facility] [address] [place] [address] Melchor Escobar MD Medication Refill 01/12/2025 Refill [facility] [address] [place] [address] Melchor Escobar MD Medication Refill 01/01/2025 Orders Only [facility] [address] [place] [address] Melchor Escobar MD from Last 3 Months Family History Medical History Relation Comments Colon [...] OUTSIDE LAB Routine 12/10/2024 1:27 PM EDT COMPREHENSIVE METABOLIC PANEL (CMP) Routine 02/06/2024 10:57 AM EST Hemochromatosis, unspecified hemochromatosis type from Last 3 Months or Most Recently Relevant to Health Maintenance Results * Outside Lab (Non-MGB) (12/10/2024 1:27 PM EDT) us Melchor Escobar MD LAB BLOOD BKR ORDERABLES Edite d Result - Final * Comprehensive metabolic panel (02/06/2024 10:57 AM EST) SODIUM 138 133 - 146 mmol/L [facility] POTASSIUM 4.5 3.3 - 5.1 mmol/L [facility] CHLORIDE 103 96 - 108 mmol/L [facility] CO2 25 21 - 35 mmol/L [facility] BUN 14 6 - 19 mg/dL [facility] CREATININE 0.90 0.5 - 1.5 mg/dL [facility] GLUCOSE 94 70 - 99 mg/dL [facility] ALBUMIN 4.7 3.9 - 4.8 g/dL [facility] TOTAL PROTEIN 7.2 6.5 - 8.0 g/dL [facility] CALCIUM 9.4 8.4 - 10.3 mg/dL [facility] ALKALINE PHOSPHATASE 66 39 - 117 U/L [facility] TOTAL BILIRUBIN 0.6 0.0 - 1.2 mg/dL [facility] AST 25 0 - 37 U/L [facility] ALT 14 0 - 40 U/L [facility] GLOBULIN 2.5 1 - 4.8 g/dL [facility] EGFR 100 >59 mL/min/1.7 3m2 [facility] Comment:Estimated glomerular filtration rate calculated using the CKD-EPI refit equation. ANION GAP 15 10 - 20 mmol/L [facility] Blood 02/06/2024 10:5 7 AM EST 02/06/2024 11:03 AM EST Melchor Escobar MD LAB BLOOD BKR ORDERABLES Final Result [facility] [address] [place] [address] from Last 3 Months or Most Recently Relevant to Health Maintenance Insurance [employer] PPO CIGNA PPO CIGNA PPO CIG[employer] PPO [employer]IG[employer] PPO CIG[employer] PPO Care Teams Rn Advice Relationship Specialty Start Date End Date Christiane Altman NP [address] [place] [address] PCP - General Nurse Practitioner 08/31/23 Additional Source Comments The information contained in this document represents components of the legal health record. It is not the complete legal health record.[facility]
--- OUTSIDE RECORDS SUMMARY | 2025-01-27 21:54 | XMS_ITS | Encounter Summary ---
Author Organization [facility] Address [address] [facility] [address] [place] [address] Phone Care Team Providers Care Director Imaging Name Role Phone CarranzaDelores COLLECTION OFFICER Primary Care Provider Christiane Altman COLLECTION OFFICER Primary Care Provider [phone]- [phone] Encounter Details Date Type Department Care Team (Latest Contact Info) Description 08/10/2022 Transcribe Orders Virtual Department [address] [place] [address] Melchor Escobar MD [address] [place] [address] [email or web address] Hemochromatosis, unspecified hemochromatosis type (Primary Dx) Social [...] Primary documented in this encounter Care Teams Director Imaging Relationship Specialty Start Date End Date Delores Carranza NP PCP - General Nurse Practitioner 02/28/22 08/30/23 Christiane Altman NP [address] [place] [address] PCP - General Nurse Practitioner 08/31/23 documented as of this encounter Additional Source Comments The information contained in this document represents components of the legal health record. It is not the complete legal health record.[facility]
--- OUTSIDE RECORDS SUMMARY | 2025-01-27 21:54 | XMS_ITS | Encounter Summary ---
Author Organization [facility] Address [address] [facility] [address] [place] [address] Phone Care Team Providers Care Intertype Operator Name Role Phone Shukri Bojorquez Primary Care Provider [phone] Delores Carranza DIRECTOR OF BUSINESS SYSTEMS Primary Care Provider Christiane Altman DIRECTOR OF BUSINESS SYSTEMS Primary Care Provider [phone] Encounter Details Date Type Department Care Team (Latest Contact Info) Description 02/20/2020 Transcribe Orders Virtual Department [address] [place] [address] Melchor Escobar MD [address] [place] [address] [email or web address] Liver fibrosis (Primary Dx) Social History Tobacco [...] in the right hepatic lobe on a NovitassuTessella ultrasound machine. Point shear wave elastography technique [...] obtained in the righthepatic lobe on a NovitassuTessella ultrasound machine. Point shear waveelastography technique was [...] are not well established. Melchor Escobar MD [facility]BDOM[facility] Final Result documented in this encounter Visit Diagnoses Diagnosis Liver fibrosis- Primary Cirrhosis of liver without mention of alcohol Liver fibrosis Cirrhosis of liver without mention of alcohol documented in this encounter Care Teams Intertype Operator Relationship Specialty Start Date End Date Shukri Bojorquez DO PCP - General 08/20/13 02/27/22 Delores Carranza NP PCP - General Nurse Practitioner 02/28/22 08/30/23 Christiane Altman NP [address] [place] [address] PCP - General Nurse Practitioner 08/31/23 documented as of this encounter Additional Source Comments The information contained in this document represents components of the legal health record. It is not the complete legal health record.[facility]
--- OUTSIDE RECORDS SUMMARY | 2025-01-27 21:54 | XMS_ITS | Encounter Summary ---
Author Organization [facility] Address [address] [facility] [address] [place] [phone] Phone Care Team Providers Care Pilot Control Operator Helper Name Role Phone CarranzaDelores ELECTRICIAN MAINTENANCE Primary Care Provider Christiane Altman ELECTRICIAN MAINTENANCE Primary Care Provider [phone]- [phone] Encounter Details Date Type Department Care Team (Latest Contact Info) Description 08/30/2023 Transcribe Orders [facility] [address] [place] [address] Melchor Escobar MD [address] [address] [email or web address] Liver fibrosis (Primary Dx) Social History Tobacco [...] EDT) PT 11.5 10.2 - 12.9 sec [facility] INR 1.0 0.9 - 1.1 [facility] Comment:Therapeutic range fo r oral Vitamin K antagonists: 2.0-3.5 Blood 08/30/2023 10:4 9 AM EDT 08/30/2023 10:54 AM EDT us Melchor Escobar MD LAB BLOOD BKR ORDERABLES Final Result Performing Organization Address City/State/[facility] Co de Phone Number [address] [phone] * Comprehensive metabolic panel (08/30/2023 10:49 AM EDT) SODIUM 137 133 - 146 mmol/L [facility] POTASSIUM 4.6 3.3 - 5.1 mmol/L [facility] CHLORIDE 100 96 - 108 mmol/L [facility] CO2 25 21 - 35 mmol/L [facility] BUN 16 6 - 19 mg/dL [facility] CREATININE 1.00 0.5 - 1.5 mg/dL [facility] GLUCOSE 87 70 - 99 mg/dL [facility] ALBUMIN 4.8 3.9 - 4.8 g/dL [facility] TOTAL PROTEIN 7.6 6.5 - 8.0 g/dL [facility] CALCIUM 9.7 8.4 - 10.3 mg/dL [facility] ALKALINE PHOSPHATASE 67 39 - 117 U/L [facility] TOTAL BILIRUBIN 0.9 0.0 - 1.2 mg/dL [facility] AST 34 0 - 37 U/L [facility] ALT 21 0 - 40 U/L [facility] GLOBULIN 2.8 1 - 4.8 g/dL [facility] EGFR 88 >59 mL/min/1.7 3m2 [facility] Comment:Estimated glomerular filtration rate calculated using the CKD-EPI refit equation. ANION GAP 17 10 - 20 mmol/L [facility] Blood 08/30/2023 10:4 9 AM EDT 08/30/2023 10:54 AM EDT us Melchor Escobar MD LAB BLOOD BKR ORDERABLES Final Result Performing Organization Address City/[facility]/ZIP Co de Phone Number [address] [phone] * CBC (08/30/2023 10:49 AM EDT) WBC 5.84 4.00 - 11.00 K/uL [facility] RBC 5.23 3.90 - 5.69 M/uL [facility] HGB 13.6 12.4 - 17.3 g/dL [facility] HCT 42.2 37.0 - 51.0 % [facility] PLT 238 140 - 430 K/uL [facility] MCV 80.7 78.0 - 97.0 fL [facility] MCH 26.0 25.0 - 33.0 pg [facility] MCHC 32.2 32.0 - 36.0 g/dL [facility] RDW 13.6 11.0 - 15.0 % [facility] MPV 11.2 8.4 - 12.8 fl [facility] Blood 08/30/2023 10:4 9 AM EDT 08/30/2023 10:54 AM EDT us Melchor Escobar MD LAB BLOOD BKR ORDERABLES Final Result Performing Organization Address City/[facility]/ZIP Co de Phone Number [address] [address] * AFP (non-maternal specimens) (08/30/2023 10:49 AM EDT) AFP (NON-MATERNAL) 1.9 <7.9 ng/mL [facility] Comment: Test Methodology Rudy [id number] Patient results determined by assays using different manufacturers or methods may not be comparable. Blood 08/30/2023 10:4 9 AM EDT 08/30/2023 10:54 AM EDT us Melchor Escobar MD LAB BLOOD BKR ORDERABLES Final Result [facility] [address] [place] [address] documented in this encounter Visit Diagnoses Diagnosis Liver fibrosis- Primary Cirrhosis of liver without mention of alcohol documented in this encounter Care Teams Pilot Control Operator Helper Relationship Specialty Start Date End Date Delores Carranza NP PCP - General Nurse Practitioner 02/28/22 08/30/23 Christiane Altman NP [address] [place] [address] PCP - General Nurse Practitioner 08/31/23 documented as of this encounter Additional Source Comments The information contained in this document represents components of the legal health record. It is not the complete legal health record.[facility]
--- OUTSIDE RECORDS SUMMARY | 2025-01-27 21:54 | XMS_ITS | Encounter Summary ---
Author Organization [facility] Address [address] [facility] [address] [place] [phone] Phone Care Team Providers Care Surgery Aide Name Role Phone Christiane Altman IT ARCHITECT Primary Care Provider [phone]- [phone] Encounter Details Date Type Department Care Team (Late st Contact Info) Description 06/04/2024 Procedure Pass [facility] Endoscopy Admitting Dept Virtual Department [address] [place] [address] Social History Tobacco Use Types Packs/Day Years [...] 06/04/2024 9:41 AM Brittany Haddad RN * [place] Suicide Severity Rating Scale (Screener/Recent Self-Report) Question [...] on filedocumented in this encounter Care Teams Surgery Aide Relationship Specialty Start Date End Date Christiane Altman NP [address] [place] [address] PCP - General Nurse Practitioner 08/31/23 documented as of this encounter Additional Source Comments The information contained in this document represents components of the legal health record. It is not the complete legal health record.[facility]
== END 2025-01-27 13:10 | disposition home or self-care (01) ==
LOC: HO.HOSX 13:09
PROVIDERS: Visit Provider Orthopaedic Surgery
DX: M16.0 Bilateral primary osteoarthritis of hip (principal)
CPT/HCPCS: 72170

== ENCOUNTER 2025-01-27 13:13 | Outpatient (AMB) | payer OTHER, SELFPAY ==
--- NOTE | 2025-01-27 13:18 | A.OFFVIS_ITS ---
Vital Signs 01/27/25 13:28 Height 6 ft 1 in Weight 225 lb BMI 29.7 Intake Visit Reasons: TRANSITION RN: B/L hip pain, wants surgery Intake Note: Ronnie is a 59 year old male who presents today as a New Patient with complaints of Left Hip pain. Patient reports that he has had pain ongoing for about 10 years now with no previous treatment. increased activities but is having pain/ discomfort while trying to sleep. He feels as though he has to reposition frequently. Allergies No Known Allergies Allergy (Verified 01/27/25 13:28) HPI HPI TRANSITION RN: B/L hip pain, wants surgery: Details: Ronnie is a 59 year old male who presents today as a New Patient with complaints of Left Hip pain. Patient reports that he has had pain ongoing for about 10 years now with no previous treatment. increased activities but is having pain/ discomfort while trying to sleep. He feels as though he has to reposition frequently. The pain localizes to the lateral hip . He occasionally has anterior hip pain. He walks his dog 3 miles a day. [facility] Medical History Migraine GERD (gastroesophageal reflux disease) Body mass index (BMI) of 40.0 to 44.9 in adult Morbid obesity due to excess calories Neoplasm of uncertain behavior of face Male erectile dysfunction, unspecified Bilateral hearing loss Colon cancer Hemochromatosis Hemochromatosis Erectile dysfunction Morbid obesity due to excess calories Family history of colon cancer in father Adult BMI 40.0-44.9 kg/sq m Male erectile dysfunction, unspecified Hearing screen following failed hearing test Hemochromatosis Neoplasm of skin of face Sessile colonic polyp Surgical History H/O endoscopy History of removal of skin mole History of colonoscopy with polypectomy History of removal of skin mole History of colonoscopy Family History Father Colon cancer Mother History of mitral valve disorder Father Colon cancer Mother Kidney failure, acute Brother Myocardial infarction Sister Skin cancer Father Colon cancer Mother Mitral valve disease Kidney failure Brother Diabetes type 2, controlled Social History Household Members: None Both parents involved: No Caregiver staying overnight: No Housing: House Are you a primary director medicare sales to a significant other at home: No 75 years or older and lives alone: No Alcohol intake: current Alcohol intake frequency: holidays/special occasions only Patient Tobacco Use Status: Former Tobacco user Tobacco use type: Smokeless Tobacco e-Cigarette/Vaping Use: Former Use Second Hand Smoke Exposure: Yes Substance Use Type: Marijuana service: No Current occupational status: employed Current occupation: [employer] Current occupational exposures/hazards: No Sexual orientation: Unable to collect Gender identity: Unable to collect Cognitive needs: No Hearing needs: Yes Vision needs: No Physical Exam Exam Exam: Normal gait. His right hip has restricted internal rotation and a mildly positive impingement test with a negative Stinchfield. Vital Signs: BMI result Body Mass Index 29.7 Results Reviewed Results Reviewed: I personally reviewed relevant radiographs. Mild right hip osteoarthritis Moderate left hip osteoarthritis Assessment & Plan Assessment & Plan (1) Osteoarthritis of both hips: Code(s): M16.0 - Bilateral primary osteoarthritis of hip Category: Medical Plan: 59-year-old active and healthy gentleman with left hip osteoarthritis. We had a long discussion regarding treatment options. He walks 3 miles a day and at this point I do not recommend any treatment. If his pain worsens consider injections. I do anticipate he will need a hip replacement 1 of these days but right now he seems to be doing fairly well. Orders: Orders XR pelvis 1-2V Today M25.559 - Pain in unspecified hip Coding Level of Care Code New Pt Level 4 (78328) Diagnoses Osteoarthritis of both hips M16.0
[2025-01-27 13:28] VITALS: BMI 29.7
== END 2025-01-27 14:30 | disposition home or self-care (01) ==
LOC: HO.HOS 13:14
PROVIDERS: PCP Nurse Practitioner Family; Visit Provider Orthopaedic Surgery
DX: M16.0 Bilateral primary osteoarthritis of hip (principal)
CPT/HCPCS: 99203

== ENCOUNTER → 2025-01-27 13:20 | Outpatient (BNV) | payer OTHER, SELFPAY | PROVIDERS: Visit Provider Radiology Diagnostic Radiology | DX: M16.0 Bilateral primary osteoarthritis of hip (principal); M47.817 Spondylosis without myelopathy or radiculopathy, lumbosacral region | CPT/HCPCS: 72170 ==